=== PATIENT | male | born 1970 ===

== ENCOUNTER 2019-12-02 07:18 | Inpatient (IN) | payer BC, OTHER ==
[~2019-12-02] VITALS: Ht 177 cm; Wt 95.8 kg
[2019-12-02] VITALS (20 sets, daily range): BP systolic 92–139; BP diastolic 50–89
[2019-12-02] MEDS ORDERED: LACTATED RINGERS 1,000 ML IV ONE ×2 (07:44)
[2019-12-02] MEDS ORDERED: NS IV 1000 ML 1,000 ML IV ONE (07:44)
[2019-12-02] MEDS ORDERED: ONDANSETRON 4 MG/2 ML (SDV) Z0FRAN ONE (07:44)
[2019-12-02] MEDS ORDERED: PIPERACILLIN SODIUM/TAZOBACTAM 4.5 GM in NS (IVPB) 100 ML IV ONE (07:45)
[2019-12-02] MEDS ORDERED: VANCOMYCIN INJECTION 1,750 MG in NS IV 500 ML 500 ML IV ONE (07:45)
--- NOTE | 2019-12-02 07:49 | ED General ---
General Stated Complaint: VOMITING Source of Information: Patient Exam Limitations: Language Barrier History of Present Illness Date Seen by Provider: Dec 02, 2019 Time Seen by Provider: 07:25 Initial Comments The patient presents to ER with family by private conveyance with chief complaint for the past 2 weeks she's been having some on again off again nausea vomiting in the past 3 days she's had increasing shortness of breath. He denies any medical history or having a doctor for this. He does not have diabetes. He denies a cough or chest pain. He denies any fever this entire time and has checked it several times. He speaks Arabic primarily and we used the language line to aid communication. He has not taken any medications for his symptoms. He does not routinely take medications nor does he have medical allergies. He denies smoking drinking or recreational drugs. He denies any history of abdominal surgeries or trauma. He denies any travel outside the [facility] in the past 4 weeks. He is not having any diarrhea or constipation. He denies dysuria or discharge. He denies any pain, numbness or t ingling. Allergies and Home Medications Allergies Coded Allergies: No Known Drug Allergies (Unverified , 12/02/19) Patient Home Medication List Home Medication List Reviewed: Yes Review of Systems Review of Systems Constitutional: No chills, No fever; malaise, weakness EENTM: No ear discharge, No ear pain Respiratory: No cough; short of breath Cardiovascular: No chest pain, No Hx of Intervention, No palpitations Gastrointestinal: see HPI; No abdominal pain, No constipation, No diarrhea; loss of appetite, nausea, vomiting Genitourinary: No discharge, No dysuria Musculoskeletal: No back pain, No joint pain All Other Systems Reviewed Negative Unless Noted: Yes Past Cvjjckt-Ghvpua-Vkuwwg Hx Patient Social History Alcohol Use: Denies Use Recreational Drug Use: No Smoking Status: Never a Smoker Recent Foreign Travel: No Contact w/Someone Who Travel: No Physical Exam-Suspected Sepsis Physical Exam Vital Signs Vital Signs - First Documented 12/02/19 12/02/19 12/02/19 07:23 09:00 11:00 Temp 36.5 Pulse 147 Resp 32 B/P (MAP) 144/85 (104) Pulse Ox 100 O2 Delivery Room Air O2 Flow Rate 35.00 FiO2 40 Capillary Refill : Height, Weight, BMI Height: '" Weight: lbs. oz. kg; BMI Method: General Appearance: WD/WN, Moderate Distress Eyes: Bilateral Eye Normal Inspection, Bilateral Eye PERRL, Bilateral Eye EOMI HEENT: PERRL/EOMI, TMs Normal, Normal ENT Inspection; No Moist Mucous Membranes Neck: Full Range of Motion, Normal Inspection, Non Tender, Supple Respiratory: Lungs Clear, Normal Breath Sounds, Accessory Muscle Use, Respiratory Distress (Kussmaul) Cardiovascular: Regular Rate, Rhythm, No Edema, No JVD, Normal Peripheral Pulses, Tachycardia Gastrointestinal: Normal Bowel Sounds, Non Tender, Soft, Other (negative for psoas sign, Rovsing sign, McBurney's point tenderness, Sun's sign, rebound tenderness or other mesenteric signs) Extremity: Normal Capillary Refill, Normal Inspection, No Pedal Edema Neurologic/Psychiatric: Alert, Oriented x3, No Motor/Sensory Deficits, Other (GCS 14) Skin: normal color, warm/dry Focused Exam Sepsis Stage: Ruled Out Reason for ruling out sepsis: diabetic ketoacidosis without source of infection Lactate Level 12/02/19 07:35: Lactic Acid Level 2.82*H 12/02/19 11:20: Lactic Acid Level 1.13 Lactic Acid Level Procedures/Interventions Reason for Intubation: respiratory distress secondary to metabolic acidosis Date of ETT Placement: Dec 02, 2019 Time of ETT Placement: 08:24 Intubation Method: orotracheal Tube Size: 8.0 Medications: Etomidate (20mg), Propofol (20 ml), Rocuronium (50mg) Positive End Tide CO2: Yes Breath Sounds after Intubation: bilateral-equal Intubation Complications: no complications Post Intubation Xray: Yes satisfactory ET tube position Patient was intubated because of respiratory distress and he was having excessive accessory muscle use and wearing out secondary to his metabolic acidosis. We explained this using the language line and the patient consented. We gave etomidate, and rocuronium initially. After intubation we gave him some Versed and then put him on propofol for sedation. Once we had adequate anesthesia, analgesia, paralysis we use an 8.0 ET tube placed on first attempt using video laryngoscopy at 23 at the teeth. It was secured in place. We had good fogging of the tube as well as color change of the colorimetric capnography paper. Patient's oxygen sats never got below 96%. We had good rise and fall of the chest and equal bilateral breath sounds. No gurgling was heard over the epigastric region. Immediately after intubation and securing of the ET tube we placed an OG tube and got withdrawal of about 150 cc of gastric contents, thin. Ventilator was initiated at 20 respirations per minute and 500 cc tidal volume with PEEP 5 and FiO2 of 40%. Because of patient's heart rate had gone up from 1:30 to 160, tears were noted and his blood pressure elevated we gave him Versed and started propofol for analgesia. Vital signs improved and he seemed to have better symptomatic control. Progress/Results/Core Measures Suspected Sepsis SIRS Temperature: Pulse: Respiratory Rate: Laboratory Tests 12/02/19 07:35: White Blood Count 22.7H 12/02/19 11:20: White Blood Count 31.0*H Blood Pressure / Mean: 12/02/19 07:35: Lactic Acid Level 2.82*H 12/02/19 11:20: Lactic Acid Level 1.13 Laboratory Tests 12/02/19 07:35: Creatinine 2.38H, INR Comment 1.3, Platelet Count 441H, Total Bilirubin 0.5 12/02/19 11:20: Platelet Count 310 12/02/19 13:05: Creatinine 2.03H 12/02/19 15:17: Creatinine 1.94H Results/Orders Lab Results Laboratory Tests Test 12/02/19 07:35 12/02/19 08:39 12/02/19 10:03 12/02/19 11:20 Range/Units White Blood Count 22.7 H 31.0 *H 4.3-11.0 10^3/uL Red Blood Count 5.85 4.89 4.35-5.85 10^6/uL Hemoglobin 16.1 13.5 13.3-17.7 G/DL Hematocrit 48 41 40-54 % Mean Corpuscular Volume 82 83 80-99 FL Mean Corpuscular Hemoglobin 28 28 25-34 PG Mean Corpuscular Hemoglobin Concent 34 33 32-36 G/DL Red Cell Distribution Width 14.0 14.0 10.0-14.5 % Platelet Count 441 H 310 130-400 10^3/uL Mean Platelet Volume 12.0 H 12.0 H 7.4-10.4 FL Neutrophils (%) (Auto) 87 H 42-75 % Lymphocytes (%) (Auto) 6 L 12-44 % Monocytes (%) (Auto) 8 0-12 % Eosinophils (%) (Auto) 0 0-10 % Basophils (%) (Auto) 0 0-10 % Neutrophils # (Auto) 19.6 H 1.8-7.8 X 10^3 Lymphocytes # (Auto) 1.3 1.0-4.0 X 10^3 Monocytes # (Auto) 1.7 H 0.0-1.0 X 10^3 Eosinophils # (Auto) 0.0 0.0-0.3 10^3/uL Basophils # (Auto) 0.0 0.0-0.1 10^3/uL Neutrophils % (Manual) 77 % Lymphocytes % (Manual) 5 % Monocytes % (Manual) 7 % Eosinophils % (Manual) 0 % Basophils % (Manual) 0 % Band Neutrophils 11 % Blood Morphology Comment NORMAL Prothrombin Time 16.2 H 12.2-14.7 SEC INR Comment 1.3 0.8-1.4 Activated Partial Thromboplast Time 26 24-35 SEC Blood Gas Puncture Site RR Blood Gas Patient Temperature 36.6 Arterial Blood pH 6.97 *L 7.37-7.43 Arterial Blood Partial Pressure CO2 10 *L 35-45 MMHG Arterial Blood Partial Pressure O2 122 H 79-93 MMHG Arterial Blood HCO3 2 *L 23-27 MMOL/L Arterial Blood Total CO2 2.4 L 21.0-31.0 MMOL/L Arterial Blood Oxygen Saturation 98 94-100 % Arterial Blood Base Excess -27.8 L -2.5-2.5 MMOL/L Scotty Test YES-POS Blood Gas Ventilator Setting NO Blood Gas Inspired Oxygen RA Sodium Level 141 135-145 MMOL/L Potassium Level 4.1 3.6-5.0 MMOL/L Chloride Level 108 H 98-107 MMOL/L Carbon Dioxide Level < 5 *L 21-32 MMOL/L Anion Gap 28 H 5-14 MMOL/L Blood Urea Nitrogen 33 H 7-18 MG/DL Creatinine 2.38 H 0.60-1.30 MG/DL Estimat Glomerular Filtration Rate 29 BUN/Creatinine Ratio 14 Glucose Level 723 *H 70-105 MG/DL Lactic Acid Level 2.82 *H 1.13 0.50-2.00 MMOL/L Calcium Level 9.5 8.5-10.1 MG/DL Corrected Calcium 8.5-10.1 MG/DL Total Bilirubin 0.5 0.1-1.0 MG/DL Aspartate Amino Transf (AST/SGOT) 10 5-34 U/L Alanine Aminotransferase (ALT/SGPT) 32 0-55 U/L Alkaline Phosphatase 140 H 40-136 U/L Ammonia 57 H 11-32 UMOL/L Total Protein 8.8 H 6.4-8.2 GM/DL Albumin 4.9 H 3.2-4.5 GM/DL Serum Alcohol < 10 <10 MG/DL Urine Color YELLOW Urine Clarity CLEAR Urine pH 5.5 5-9 Urine Specific Hye >=1.030 1.016-1.022 Urine Protein 2+ H NEGATIVE Urine Glucose (UA) 3+ H NEGATIVE Urine Ketones 3+ H NEGATIVE Urine Nitrite NEGATIVE NEGATIVE Urine Bilirubin NEGATIVE NEGATIVE Urine Urobilinogen 0.2 < = 1.0 MG/DL Urine Leukocyte Esterase NEGATIVE NEGATIVE Urine RBC (Auto) 2+ H NEGATIVE Urine RBC 0-2 /HPF Urine WBC RARE /HPF Urine Squamous Epithelial Cells RARE /HPF Urine Crystals PRESENT H /LPF Urine Amorphous Sediment RARE LAUREN URATES H /LPF Urine Bacteria NEGATIVE /HPF Urine Casts PRESENT /LPF Urine Hyaline Casts RARE /LPF Urine Mucus NEGATIVE /LPF Urine Culture Indicated CULTURE PENDING Urine Opiates Screen NEGATIVE NEGATIVE Urine Oxycodone Screen NEGATIVE NEGATIVE Urine Methadone Screen NEGATIVE NEGATIVE Urine Propoxyphene Screen NEGATIVE NEGATIVE Urine Barbiturates Screen NEGATIVE NEGATIVE Ur Tricyclic Antidepressants Screen NEGATIVE NEGATIVE Urine Phencyclidine Screen NEGATIVE NEGATIVE Urine Amphetamines Screen NEGATIVE NEGATIVE Urine Methamphetamines Screen NEGATIVE NEGATIVE Urine Benzodiazepines Screen NEGATIVE NEGATIVE Urine Cocaine Screen NEGATIVE NEGATIVE Urine Cannabinoids Screen NEGATIVE NEGATIVE Glucometer 549 *H 70-110 MG/DL Triglycerides Level 282 H <150 MG/DL Beta-Hydroxybutyrate (Chem panel) 11.18 H 0.00-0.27 MMOL/L Test 12/02/19 11:57 12/02/19 12:16 12/02/19 13:03 12/02/19 13:05 Range/Units Glucometer 469 *H 488 *H 70-110 MG/DL Blood Gas Puncture Site LR Blood Gas Patient Temperature 96.3 Arterial Blood pH 6.99 *L 7.37-7.43 Arterial Blood Partial Pressure CO2 24 L 35-45 MMHG Arterial Blood Partial Pressure O2 52 L 79-93 MMHG Arterial Blood HCO3 6 *L 23-27 MMOL/L Arterial Blood Total CO2 6.4 L 21.0-31.0 MMOL/L Arterial Blood Oxygen Saturation 86 L 94-100 % Arterial Blood Base Excess -23.6 L -2.5-2.5 MMOL/L Scotty Test YES-POS Blood Gas Ventilator Setting YES Blood Gas Inspired Oxygen 35% Sodium Level 141 135-145 MMOL/L Potassium Level 5.0 3.6-5.0 MMOL/L Chloride Level 115 H 98-107 MMOL/L Carbon Dioxide Level < 5 *L 21-32 MMOL/L Anion Gap 21 H 5-14 MMOL/L Blood Urea Nitrogen 36 H 7-18 MG/DL Creatinine 2.03 H 0.60-1.30 MG/DL Estimat Glomerular Filtration Rate 35 BUN/Creatinine Ratio 18 Glucose Level 553 *H 70-105 MG/DL Calcium Level 8.0 L 8.5-10.1 MG/DL Test 12/02/19 13:45 12/02/19 14:05 12/02/19 14:56 12/02/19 15:17 Range/Units Blood Gas Puncture Site RR Blood Gas Patient Temperature 36.4 Arterial Blood pH 7.01 *L 7.37-7.43 Arterial Blood Partial Pressure CO2 22 L 35-45 MMHG Arterial Blood Partial Pressure O2 64 L 79-93 MMHG Arterial Blood HCO3 5 *L 23-27 MMOL/L Arterial Blood Total CO2 6.0 L 21.0-31.0 MMOL/L Arterial Blood Oxygen Saturation 89 L 94-100 % Arterial Blood Base Excess -23.7 L -2.5-2.5 MMOL/L Scotty Test YES-POS Blood Gas Ventilator Setting YES Blood Gas Inspired Oxygen 35% Glucometer 434 *H 361 H 70-110 MG/DL Sodium Level 141 135-145 MMOL/L Potassium Level 4.8 3.6-5.0 MMOL/L Chloride Level 118 H 98-107 MMOL/L Carbon Dioxide Level 5 *L 21-32 MMOL/L Anion Gap 18 H 5-14 MMOL/L Blood Urea Nitrogen 37 H 7-18 MG/DL Creatinine 1.94 H 0.60-1.30 MG/DL Estimat Glomerular Filtration Rate 37 BUN/Creatinine Ratio 19 Glucose Level 442 *H 70-105 MG/DL Calcium Level 7.7 L 8.5-10.1 MG/DL Test 12/02/19 15:57 12/02/19 16:58 12/02/19 18:20 Range/Units Glucometer 363 H 317 H 70-110 MG/DL Micro Results Microbiology 12/02/19 Influenza Types A,B Antigen (JOAQUIN) - Final, Complete My Orders Orders - KRYSTLE WEEKS Cbc With Automated Diff (12/02/19 07:44) Comprehensive Metabolic Panel (12/02/19 07:44) Blood Culture (12/02/19 07:44) Sputum Culture (12/02/19 07:44) Urinalysis (12/02/19 07:44) Urine Culture (12/02/19 07:44) Protime With Inr (12/02/19 07:44) Partial Thromboplastin Time (12/02/19 07:44) Chest 1 View, Ap/Pa Only (12/02/19 07:44) Ed Iv/Invasive Line Start (12/02/19 07:44) Ed Iv/Invasive Line Start (12/02/19 07:44) Vital Signs Adult Sepsis Patie Q15M (12/02/19 07:44) O2 (12/02/19 07:44) Remove Rings In Anticipation O (12/02/19 07:44) Lactic Acid Analyzer (12/02/19 07:44) Influenza A And B Antigens (12/02/19 07:44) Lactated Ringers (Lr 1000 Ml Iv Solution (12/02/19 07:44) Piperacillin Sodium/Tazobactam (Zosyn Vi (12/02/19 07:45) Vancomycin Injection (Vancomycin Injecti (12/02/19 07:45) Ed Iv/Invasive Line Start (12/02/19 07:44) Ns Iv 1000 Ml (Sodium Chloride 0.9%) (12/02/19 07:44) Lactated Ringers (Lr 1000 Ml Iv Solution (12/02/19 07:44) Arterial Blood Gas (12/02/19 07:44) Ondansetron Injection (Zofran Injectio (12/02/19 08:00) Drug Screen Stat (Urine) (12/02/19 07:49) Alcohol (12/02/19 07:49) Ammonia (12/02/19 07:49) Ondansetron Injection (Zofran Injectio (12/02/19 07:44) Manual Differential (12/02/19 07:35) Iohexol Injection (Omnipaque 350 Mg/Ml 1 (12/02/19 08:00) Received Contrast (Hold Metformin- Contr (12/02/19 08:00) Ns (Ivpb) (Sodium Chloride 0.9% Ivpb Bag (12/02/19 08:00) Sodium Bicarbonate 8.4% Vial (Sodium Bic (12/02/19 08:15) Propofol Drip (Icu) (Diprivan Drip (Icu) (12/02/19 08:28) Insulin (Regular) Human (Humulin R (Per (12/02/19 09:00) 1/2 Ns W/Kcl 20 Meq/L (0.45% Sodium Chlo (12/02/19 09:00) Fentanyl Injection (Sublimaze Injection (12/02/19 09:15) Fentanyl Injection (Sublimaze Injection (12/02/19 09:01) Medications Given in ED Current Medications Medications Dose Ordered Sig/Roberth Route Start Time Stop Time Status Last Admin Dose Admin Insulin Human Regular 10 unit ONCE ONCE IV 12/02/19 09:00 12/02/19 09:01 DC 12/02/19 09:16 10 UNIT Lactated Ringer's 1,000 ml @ 0 mls/hr Q0M ONCE IV 12/02/19 07:44 12/02/19 07:47 DC 12/02/19 07:53 1,000 MLS/HR Lactated Ringer's 1,000 ml @ 0 mls/hr Q0M ONCE IV 12/02/19 07:44 12/02/19 07:47 DC 12/02/19 08:13 1,000 MLS/HR Ondansetron HCl 4 mg ONCE ONCE IVP 12/02/19 08:00 12/02/19 08:01 DC 12/02/19 07:52 4 MG Propofol 100 ml @ ud STK-MED ONCE IV 12/02/19 08:28 12/02/19 08:34 DC 12/02/19 08:49 20 MLS/HR Sodium Bicarbonate 50 meq ONCE ONCE IV 12/02/19 08:15 12/02/19 08:16 DC 12/02/19 08:50 50 MEQ Sodium Chloride 1,000 ml @ 0 mls/hr Q0M ONCE IV 12/02/19 07:44 12/02/19 07:47 DC 12/02/19 08:50 1,000 MLS/HR Vital Signs/I&O 12/02/19 12/02/19 12/02/19 12/02/19 07:23 08:49 09:00 09:30 Temp 36.5 36.4 Pulse 147 146 147 124 Resp 32 16 B/P (MAP) 144/85 (104) 124/65 115/58 Pulse Ox 100 96 100 O2 Delivery Room Air Mechanical Ventilator FiO2 40 12/02/19 12/02/19 12/02/19 12/02/19 09:40 09:51 10:06 11:00 Temp 36.1 Pulse 125 125 125 Resp 37 18 17 B/P (MAP) 139/81 (100) 113/76 (88) Pulse Ox 98 99 99 99 O2 Delivery Mechanical Ventilator Mechanical Ventilator Mechanical Ventilator O2 Flow Rate 35.00 FiO2 35 40 12/02/19 12/02/19 12/02/19 12/02/19 11:05 11:13 11:13 12:00 Pulse 126 126 126 101 Resp 16 B/P (MAP) 113/76 113/76 108/56 (73) Pulse Ox 99 O2 Delivery Mechanical Ventilator O2 Flow Rate 35.00 12/02/19 12/02/19 12/02/19 12/02/19 12:00 12:30 12:41 13:00 Temp 36.5 Pulse 96 95 Resp 15 B/P (MAP) 92/50 (64) Pulse Ox 99 99 O2 Delivery Mechanical Ventilator Mechanical Ventilator O2 Flow Rate 35.00 FiO2 35 12/02/19 12/02/19 12/02/19 12/02/19 14:00 14:33 15:41 16:08 Pulse 92 89 89 89 Resp 17 33 33 B/P (MAP) 110/70 (83) 118/83 Pulse Ox 100 99 99 O2 Delivery Mechanical Ventilator O2 Flow Rate 35.00 FiO2 35 35 12/02/19 12/02/19 16:10 16:19 Temp 36.4 Pulse Ox 99 O2 Delivery Mechanical Ventilator FiO2 35 Capillary Refill : Progress Note #1: Time: 08:01 Progress Note Rapid breathing likely due to acidosis from? Since he's having vomiting we'll look in the get a CT labs urinalysis, septic workup 3 L which is greater than 30 mL/kg and since his mentation is poor but he has a soft, supple, non-stiff neck but is oriented we'll consider intracranial pathology and get a CT of his head. Zosyn and vancomycin. Zofran for his nausea. ABG. Progress Note #2: Time: 08:55 Progress Note While the patient did not know he had some diabetes his blood sugar 700 would indicate that he is likely in ketoacidosis. We have initiated a 3 L fluid bolus to start and bicarbonate. We have intubated to protect his airway and keep him from having complete respiratory failure. His potassium is 4.1 spray give him fluids to run with potassium after the boluses and initiate him with 10 units of regular insulin and then send him to the ICU on an insulin drip. We have discontinued the imaging studies as they are unlikely to demonstrate any pa thology since the patient had a benign abdominal exam. Occam's razor. Antibiotics were also discontinued as the patient never had fever or other symptoms of infection not explained by DKA. Diagnostic Imaging Diagonstic Imaging: Xray Plain Films/CT/US/NM/MRI: chest (1v) Comments No acute pulmonary changes. Good placement of ET tube about 2-3 cm above the shane. Good aeration of both lungs. No pneumothorax. OG tube coiled in the top of the stomach times one loop. Reviewed: Reviewed by Me Departure Communication (Admissions) Time/Spoke to Admitting Phy: 09:00 Discussed the case with Dr. Reed and she agrees to take the patient to the ICU on the ventilator, insulin drip. Impression Primary Impression: Diabetic ketoacidosis Qualified Codes: E13.10 - Other specified diabetes mellitus with ketoacidosis without coma Additional Impressions: Acute respiratory failure Qualified Codes: J96.00 - Acute respiratory failure, unspecified whether with hypoxia or hypercapnia Acute renal injury due to hypovolemia Disposition: ADMITTED INPATIENT Condition: Critical Admissions Decision to Admit Reason: Admit from ER (General) Decision to Admit/Date: Dec 02, 2019 Time/Decision to Admit Time: 09:00 KRYSTLE WEEKS Dec 02, 2019 07:48
[2019-12-02 07:53] LABS: BASOPHILS % (AUTO) 0 % (0-10); EOSINOPHILS % (AUTO) 0 % (0-10); HEMATOCRIT 48 % (40-54); HEMOGLOBIN 16.1 G/DL (13.3-17.7); LYMPHOCYTES # (AUTO) 1.3 X 10^3 (1.0-4.0); LYMPHOCYTES % (AUTO) 6 % (12-44); MEAN CORPUSCULAR HEMOGLOBIN 28 PG (25-34); MEAN CORPUSCULAR HGB CONC 34 G/DL (32-36); MEAN CORPUSCULAR VOLUME 82 FL (80-99); MONOCYTES # (AUTO) 1.7 X 10^3 (0.0-1.0); MONOCYTES % (AUTO) 8 % (0-12); NEUTROPHILS # (AUTO) 19.6 X 10^3 (1.8-7.8); NEUTROPHILS % (AUTO) 87 % (42-75); PLATELET COUNT 441 10^3/uL (130-400); WHITE BLOOD COUNT 22.7 10^3/uL (4.3-11.0)
[2019-12-02 07:55] LABS: ABG BASE EXCESS -27.8 MMOL/L (-2.5-2.5); ABG OXYGEN SATURATION 98 % (94-100); ABG PO2 122 MMHG (79-93); ABG TCO2 2.4 MMOL/L (21.0-31.0)
[2019-12-02 07:56] LABS: ALLENS TEST YES-POS; INSPIRED O2 RA; VENTILATOR NO
[2019-12-02 07:57] LABS: ABG PCO2 10 MMHG (35-45); ABG PH 6.97 (7.37-7.43); PATIENT TEMP 36.6
[2019-12-02] MEDS ORDERED: IOHEXOL 350 MG/ML 100 ML (OMNIPAQUE 350) VIAL IV ONE (08:00)
[2019-12-02] MEDS ORDERED: NS 100 ML (IVPB) BAG IV ONE (08:00)
[2019-12-02] MEDS ORDERED: HOLD METFORMIN - RECEIVED CONTRAST 20 ML VIAL IV SCH (08:00)
[2019-12-02] MEDS ORDERED: ONDANSETRON 4 MG/2 ML (SDV) Z0FRAN IVP ONE (08:00)
[2019-12-02 08:03] LABS: INR 1.3 (0.8-1.4); PROTHROMBIN TIME PATIENT 16.2 SEC (12.2-14.7)
[2019-12-02] MEDS ORDERED: SODIUM BICARB 8.4% 50 MEQ/50 ML VIAL IV ONE (08:15)
[2019-12-02] MEDS ORDERED: PROPOFOL DRIP (ICU) 100 ML IV ONE ×2 (08:28→10:20)
[2019-12-02 08:34] LABS: BAND NEUTROPHILS 11 %; BASOPHILS % (MANUAL) 0 %; EOSINOPHILS % (MANUAL) 0 %; LYMPHOCYTES % (MANUAL) 5 %; MONOCYTES % (MANUAL) 7 %; NEUTROPHILS % (MANUAL) 77 %; RBC MORPH NORMAL
[2019-12-02 08:37] LABS: ALANINE AMINOTRANSFERASE 32 U/L (0-55); ALBUMIN 4.9 GM/DL (3.2-4.5); ALKALINE PHOSPHATASE 140 U/L (40-136); AMMONIA 57 UMOL/L (11-32); BILIRUBIN,TOTAL 0.5 MG/DL (0.1-1.0); BUN/CREATININE RATIO 14; CALCIUM 9.5 MG/DL (8.5-10.1); CHLORIDE 108 MMOL/L (98-107); CREATININE SERUM 2.38 MG/DL (0.60-1.30); GFR ESTIMATED 29; POTASSIUM 4.1 MMOL/L (3.6-5.0); SODIUM 141 MMOL/L (135-145); TOTAL PROTEIN 8.8 GM/DL (6.4-8.2)
--- NOTE | 2019-12-02 08:45 | NUR ---
0818 language line called Vanesa; RT Lester and RT Krissy present Vitals: 130P, 31R, 100% O2 RA, 147/82 BP 0824 pt bagged by Krissy, Etomidate 20 mg administered by Amena Otoole 0825 Heriberto 50 mg administered by Amena Otoole, pt bagged 100% O2 0826 Krissy, attempt to intubate, 100% O2, 163P 0828 size 8 tube placed 23 cm at teeth, pt bagged, + color change, 100% O2, 165P 0831 16 fr OG placed by Dr. Alexis 0832 5mg versed administered by this nurse
[2019-12-02 08:46] LABS: CARBON DIOXIDE < 5 MMOL/L (21-32); GLUCOSE 723 MG/DL (70-105)
[2019-12-02 08:51] LABS: BILIRUBIN,URINE NEGATIVE (NEGATIVE); CLARITY,URINE CLEAR; COLOR,URINE YELLOW; GLUCOSE, URINE (UA) 3+ (NEGATIVE); KETONES,URINE 3+ (NEGATIVE); LEUKOCYTE ESTERASE ,URINE NEGATIVE (NEGATIVE); NITRITE,URINE NEGATIVE (NEGATIVE); PH,URINE 5.5 (5-9); PROTEIN,URINE 2+ (NEGATIVE)
[2019-12-02 08:58] LABS: RBC,URINE 0-2 /HPF
[2019-12-02 08:59] LABS: AMORPHOUS SEDIMENT,UR RARE AMOR URATES /LPF; BACTERIA,URINE NEGATIVE /HPF; HYALINE CASTS, URINE RARE /LPF; SQUAMOUS EPITHELIAL CELL,UR RARE /HPF; WBC,URINE RARE /HPF
[2019-12-02] MEDS ORDERED: inSUlin (REGULAR) HUMAN 1 UNIT/0.01 ML (CHARGE PER UNIT) IV ONE (09:00)
[2019-12-02] MEDS ORDERED: 1/2 NS W/KCL 20 MEQ/L 1,000 ML IV SCH (09:00)
[2019-12-02] MEDS ORDERED: fentaNYL INJECTION 100 MCG/2 ML AMP ONE (09:01)
[2019-12-02 09:04] LABS: AMPHETAMINE SCREEN, URINE NEGATIVE (NEGATIVE); BARBITURATE SCREEN URINE NEGATIVE (NEGATIVE); BENZODIAZEPINES SCREEN URINE NEGATIVE (NEGATIVE); CANNABINOID SCREEN, URINE NEGATIVE (NEGATIVE); COCAINE SCREEN URINE NEGATIVE (NEGATIVE); METHADONE STAT NEGATIVE (NEGATIVE); METHAMPHETAMINE SCREEN URINE S NEGATIVE (NEGATIVE); OPIATE SCREEN URINE NEGATIVE (NEGATIVE); OXYCODONE STAT NEGATIVE (NEGATIVE); PROPOXYPHENE STAT NEGATIVE (NEGATIVE); TRICYCLIC ANTIDEPRESSANTS SCRE NEGATIVE (NEGATIVE)
--- NOTE | 2019-12-02 09:04 | Diagnostic Imaging Report ---
EXAMINATION: Single frontal view of the chest INDICATION: Intubation. COMPARISON: None available. FINDINGS: Endotracheal tube is in place, with distal tip approximately 2.4 cm above the shane. Enteric tube is in place, well positioned in the stomach with distal tip and side-port in the gastric fundus. The lungs are clear and the pulmonary vasculature is normal. No pneumothorax or large pleural effusion. Heart size and mediastinal contours are normal. No acute osseous abnormality is identified. IMPRESSION: Endotracheal and enteric tubes are in place. No radiographic evidence of an acute cardiopulmonary process. Dictated by: Dictated on workstation # [id number]
[2019-12-02] MEDS ORDERED: fentaNYL INJECTION 100 MCG/2 ML AMP IVP ONE (09:15)
--- NOTE | 2019-12-02 09:26 | NUR ---
nurse to call when available for report
--- OUTSIDE RECORDS SUMMARY | 2019-12-02 09:36 | XMS REPORT | Continuity of Care Document ---
Demographics Preferred Language Unknown Marital Status Unknown L[employer] Affiliation Unknown Race Unknown Ethnic Group Unknown Author Organization Unknown Address Unknown Phone Unavailable Allergies There is no data. Medications There is no data. Problems There is no data. Procedures There is no data. Results Test Result Range Complete blood count (CBC) with automate d white blood cell (WBC) differential - 12/02/19 07:35 Blood leukocytes automated count (number/volume) 22.7 10*3/uL 4.3-11.0 Blood erythrocytes automated count (number/volume) 5.85 10*6/uL 4.35-5.85 Venous blood hemoglobin measurement (mass/volume) 16.1 g/dL 13.3-17.7 Blood hematocrit (volume fraction) 48 % 40-54 Automated erythrocyte mean corpuscular volume 82 [ foz_us] 80-99 Automated erythrocyte mean corpuscular h emoglobin (mass per erythrocyte) 28 pg 25-34 Automated erythrocyte mean corpuscular h emoglobin concentration measurement (mass/volume) 34 g/dL 32-36 Automated erythrocyte distribution width ratio 14. 0 % 10.0- 14.5 Automated blood platelet count (count/volume) 441 10*3/uL 130-400 Automated blood platelet mean volume measurement 12.0 [foz_us] 7.4-10.4 Automated blood neutrophils/100 leukocytes 87 % 42-75 Automated blood lymphocytes/100 leukocytes 6 % 12-44 Blood monocytes/100 leukocytes 8 % 0-12 Automated blood eosinophils/100 leukocytes 0 % 0-10 Automated blood basophils/100 leukocytes 0 % 0-10 Blood neutrophils automated count (number/volume) 19.6 10*3 1.8-7.8 Blood lymphocytes automated count (number/volume) 1.3 10*3 1.0-4.0 Blood monocytes automated count (number/volume) 1. 7 10*3 0.0-1.0 Automated eosinophil count 0.0 10*3/uL 0 .0-0.3 Automated blood basophil count (count/volume) 0.0 10*3/uL 0.0-0.1 Arterial blood gas measurement - 0 07:35 Blood pCO2 10 mm[Hg] 35-45 Blood pO2 122 mm[Hg] 79-93 Arterial blood bicarbonate measurement (moles/volume) 2 mmol/L 23-27 Arterial blood base excess by calculation -27.8 mm ol/L -2.5-2.5 Arterial blood oxygen saturation measurement 98 % 94-100 * Inhaled oxygen flow rate RA NRG Arterial blood pH measurement with patient temperature correction 6.97 7.37-7.43 Arterial blood carbon dioxide, total measurement (mole s/volume) 2.4 mmol/L 21.0-31.0 Body site RR NRG Assessment of wrist artery patency prior to arterial p uncture YES-POS NRG Setting of ventilation mode NO NR G Measurement of body temperature 36.6 NRG PT panel in platelet poor plasma by coag ulation assay - 12/02/19 07:35 Prothrombin time (PT) in platelet poor plasma by coagu lation assay 16.2 s 12.2-14.7 INR in platelet poor plasma or blood by coagulation as say 1.3 0.8-1.4 Activated partial thromboplastin time (a PTT) in platelet poor plasma bycoagulation assay - 12/02/19 07:35 Activated partial thromboplastin time (a PTT) in platelet poor plasma bycoagulation assay 26 s 24-35 Manual absolute plasma cell count - 11/08 01/26 07:35 Blood monocytes/100 leukocytes 7 % NRG Manual blood segmented neutrophils/100 leukocytes 77 % NRG Blood band neutrophils/100 leukocytes 11 % NRG Manual blood lymphocytes/100 leukocytes 5 % NRG Manual eosinophils/100 leukocytes in nose 0 % NRG Manual blood basophils/100 leukocytes 0 % NRG Blood erythrocyte morphology finding identification NORMAL NRG Comprehensive metabolic panel - 12/02/19 07:35 Serum or plasma sodium measurement (moles/volume) 141 mmol/L 135-145 Serum or plasma potassium measurement (moles/volume) 4.1 mmol/L 3.6-5.0 Serum or plasma chloride measurement (moles/volume) 108 mmol/L 98-107 Carbon dioxide < mmol/L 21-32 Serum or plasma anion gap determination (moles/volume) 28 mmol/L 5-14 Serum or plasma urea nitrogen measurement (mass/volume ) 33 mg/dL 7-18 Serum or plasma creatinine measurement (mass/volume) 2.38 mg/dL 0.60-1.30 Serum or plasma urea nitrogen/creatinine mass ratio 14 NRG Serum or plasma creatinine measurement w ith calculation of estimated glomerular filtration rate 29 NRG Serum or plasma glucose measurement (mass/volume) 723 mg/dL 70-105 Serum or plasma calcium measurement (mass/volume) 9.5 mg/dL 8.5-10.1 Serum or plasma total bilirubin measurement (mass/volu me) 0.5 mg/dL 0.1-1.0 Serum or plasma alkaline phosphatase mariangel surement (enzymatic activity/volume) 140 U/L 40-136 Serum or plasma aspartate aminotransfera se measurement (enzymatic activity/volume) 10 U/L 5-34 Serum or plasma alanine aminotransferase measurement (enzymatic activity/volume) 32 U/L 0-55 Serum or plasma protein measurement (mass/volume) 8.8 g/dL 6.4-8.2 Serum or plasma albumin measurement (mass/volume) 4.9 g/dL 3.2-4.5 Ammonia - 12/02/19 07:35 Ammonia 57 umol/L 11-32 Blood lactic acid measurement (moles/vol ume) - 12/02/19 07:35 Blood lactic acid measurement (moles/volume) 2.82 mmol/L 0.50-2.00 Serum or plasma ethanol measurement (mas s/volume) - 12/02/19 07:35 Serum or plasma ethanol measurement (mass/volume) < mg/dL <10 Influenza virus A and B antigen detectio n - 12/02/19 08:03 FLU RESULT NEGATIVE FOR INFLUENZA A AND B ANTIGENS BY IA NRG Complete urinalysis with reflex to cultu re - 12/02/19 08:39 Urine color determination YELLOW NRG Urine clarity determination CLEAR NR G Urine pH measurement by test strip 5.5 5-9 Specific gravity of urine by test strip >= 1.016-1.022 Urine protein assay by test strip, semi-quantitative 2+ NEGATIVE Urine glucose detection by automated test strip 3+ NEGATIVE Erythrocytes detection in urine sediment by light micr oscopy 2+ NEGATIVE Urine ketones detection by automated test strip 3+ NEGATIVE Urine nitrite detection by test strip NEGATIVE NEGATIVE Urine total bilirubin detection by test strip NEGA TIVE NEGATIVE Urine urobilinogen measurement by automated test strip (mass/volume) 0.2 mg/dL < = 1.0 Urine leukocyte esterase detection by dipstick NEG ATIVE NEGATIVE Automated urine sediment erythrocyte cou nt by microscopy (number/high power field) [HPF] NRG Automated urine sediment leukocyte count by microscopy (number/high power field) RARE NRG Bacteria detection in urine sediment by light microsco py NEGATIVE NRG Squamous epithelial cells detection in u rine sediment by light microscopy RARE NRG Crystals detection in urine sediment by light microsco py PRESENT NRG Casts detection in urine sediment by light microscopy PRESENT NRG Mucus detection in urine sediment by light microscopy NEGATIVE NRG Complete urinalysis with reflex to culture CULTURE PENDING NRG Amorphous sediment detection in urine sediment by ligh t microscopy RARE LAUREN URATES NRG Hyaline casts detection in urine sediment by light nima roscopy RARE NRG Urine drug screening test - 12/02/19 08: 39 Urine phencyclidine detection by screening method NEGATIVE NEGATIVE Urine benzodiazepines detection by screening method NEGATIVE NEGATIVE Urine cocaine detection NEGATIVE NEGATI VE Urine amphetamines detection by screening method N EGATIVE NEGATIVE Urine methamphetamine detection by screening method NEGATIVE NEGATIVE Urine cannabinoids detection by screening method N EGATIVE NEGATIVE Urine opiates detection by screening method NEGATI VE NEGATIVE Urine barbiturates detection NEGATIVE N EGATIVE Screening urine tricyclic antidepressants detection NEGATIVE NEGATIVE Urine methadone detection by screening method NEGA TIVE NEGATIVE Urine oxycodone detection NEGATIVE NEGA TIVE Urine propoxyphene detection NEGATIVE N EGATIVE Encounters ACCT No. Visit Date/Time Discharge Status Pt. Type Provider Facility Loc./Unit Complaint [id number] 12/02/2019 07:54:00 Document Registration
[2019-12-02] MEDS ORDERED: NS IV 1000 ML 1,000 ML IV SCH (10:15)
--- NOTE | 2019-12-02 10:35 | History & Physical-Hospitalist ---
History of Present Illness HPI/Chief Complaint Pt is a 49yoHM with no known past medical history who presented to the ER due to vomiting and malaise for 2 weeks. At the time of my exam he was intubated and sedated and unable to provide any history. All history obtained from ER notes. He had been feeling poorly for the past 2 weeks with nausea and vomiting. Over the last few days he became short of breath as well. He has not travelled or had a fever. He does not have any diarrhea, constipation, dysuria, or pain. He was found to be profoundly acidotic with a pH of 6.97 Source: patient Date Seen 12/02/19 Time Seen by a Provider: 10:35 Attending Physician Elisabet Reed MD PCP Unknown Referring Physician Date of Admission Dec 02, 2019 at 09:12 Home Medications & Allergies Home Medications Reviewed patient Home Medication Reconciliation performed by pharmacy medication reconciliations orthotic technician and/or nursing. Patients Allergies have been reviewed. Allergies Allergies Coded Allergies No Known Drug Allergies (Unverified12/02/19) Past Tsmesvl-Xfldwv-[id number] Hx Past Med/Social Hx: Reviewed Nursing Past Med/Soc Hx Patient Social History Marrital Status: Alcohol Use: Denies Use Recreational Drug Use: No Smoking Status: Never a Smoker 2nd Hand Smoke Exposure: No Recent Foreign Travel: No Contact w/other who traveled: No Recent Hopitalizations: No Seasonal Allergies Seasonal Allergies: No Past Medical History History of Blood Disorders: No Family History Reviewed Nursing Family Hx Review of Systems ROS-Unable to Obtain: due to clinical condition Constitutional: see HPI Physical Exam Physical Exam Vital Signs Vital Signs - First Documented 12/02/19 12/02/19 12/02/19 07:23 09:00 11:00 Temp 36.5 Pulse 147 Resp 32 B/P (MAP) 144/85 (104) Pulse Ox 100 O2 Delivery Room Air O2 Flow Rate 35.00 FiO2 40 Capillary Refill : Height, Weight, BMI Height: '" Weight: lbs. oz. kg; BMI Method: General Appearance: Other (intubated and sedated) HEENT: PERRL/EOMI; No Scleral Icterus (L), No Scleral Icterus (R) Neck: Normal Inspection; No Thyromegaly Respiratory: Lungs Clear, Other (on vent, overbreathing) Cardiovascular: Regular Rate, Rhythm, No Murmur Gastrointestinal: Normal Bowel Sounds, Non Tender, Soft Genital/Rectal: Other (hennessy in place) Extremity: Normal Capillary Refill, No Calf Tenderness, No Pedal Edema Neurologic/Psychiatric: Other (sedated, appears comfortable) Skin: Normal Color, Warm/Dry Results Results/Procedures Labs Laboratory Tests 12/02/19 07:35 12/02/19 11:20 12/02/19 13:05 Patient resulted labs reviewed. Imaging: Reviewed Imaging Report Imaging Signed Date of Exam:12/02/19 CHEST 1 VIEW, AP/PA ONLY EXAMINATION: Single frontal view of the chest INDICATION: Intubation. COMPARISON: None available. FINDINGS: Endotracheal tube is in place, with distal tip approximately 2.4 cm above the shane. Enteric tube is in place, well positioned in the stomach with distal tip and side-port in the gastric fundus. The lungs are clear and the pulmonary vasculature is normal. No pneumothorax or large pleural effusion. Heart size and mediastinal contours are normal. No acute osseous abnormality is identified. IMPRESSION: Endotracheal and enteric tubes are in place. No radiographic evidence of an acute cardiopulmonary process. Assessment/Plan Admission Diagnosis DKA Admission Status: Inpatient Order (span 2 midnights) Reason for Inpatient Admission: intubated Assessment and Plan severe DKA new onset diabetes Insulin gtt per protocol fluid resuscitation per protocol a1c ordered Monitor electrolytes acute respiratory failure intubated in ER telehealth consulted for vent management, appreciate assistance propofol for sedated BAYRON Creatine 2.38 Continue fluids no baseline available, hopeful this is all acute from volume depletion DVT ppx: Lovenox Critical Care Critically Ill Patient Diagnosis/Problems Diagnosis/Problems (1) Diabetic ketoacidosis Status: Acute Qualifiers: Diabetes mellitus type: other specified (including MAYKEL) Diabetes mellitus complication detail: without coma Qualified Codes: E13.10 - Other specified diabetes mellitus with ketoacidosis without coma (2) Acute renal injury due to hypovolemia Status: Acute (3) Acute respiratory failure Status: Acute Qualifiers: Respiratory failure complication: unspecified whether with hypoxia or hypercapnia Qualified Codes: J96.00 - Acute respiratory failure, unspecified whether with hypoxia or hypercapnia ELISABET REED MD Dec 02, 2019 10:35
--- NOTE | 2019-12-02 10:44 | Occ Therapy Progress Note ---
Therapy Progress Note Order received for OT eval and treat. Chart review completed. Pt currently intubated and sedated. Will hold therapy at this time. Will continue to monitor and initiate therapy when pt medically stable and able to participate. JOSE GAMING OT Dec 02, 2019 10:44
[2019-12-02] MEDS: 1/2 NS IV SOLUTION 1,000 ML IV SCH ×4 (10:45→23:44)
[2019-12-02] MEDS ORDERED: ETOMIDATE IV SOLN 20 MG/10 ML VIAL IV ONE (10:58)
[2019-12-02] MEDS ORDERED: ROCURONIUM 10 MG/ML 5 ML SYRINGE IV ONE (10:58)
[2019-12-02] MEDS ORDERED: MIDAZOLAM 5 MG/5 ML (VERSED) VIAL IJ ONE (10:58)
[2019-12-02] MEDS: inSUlin REGULAR TPN/DRIP ONLY 250 UNITS in NORMAL SALINE 250 ML IV SCH (11:00)
[2019-12-02] MEDS: DexMEDEtomidine 250 ML DRIP 250 ML IV SCH ×2 (11:13→18:31)
[2019-12-02] MEDS: POTASSIUM CL 10MEQ/50ML IVPB 50 ML IV SCH ×9 (11:15→23:57)
[2019-12-02 11:30] LABS: HEMOGLOBIN 13.5 G/DL (13.3-17.7)
[2019-12-02] MEDS: ENOXAPARIN 40 MG/0.4 ML (LOVENOX) SYR SC SCH (12:13)
[2019-12-02] MEDS: PANTOPRAZOLE 40 MG (PROTONIX) VIAL IV SCH (12:13)
[2019-12-02 12:21] LABS: ABG BASE EXCESS -23.6 MMOL/L (-2.5-2.5); ABG OXYGEN SATURATION 86 % (94-100); ABG PCO2 24 MMHG (35-45); ABG PO2 52 MMHG (79-93); ABG TCO2 6.4 MMOL/L (21.0-31.0)
[2019-12-02 12:27] LABS: ABG PH 6.99 (7.37-7.43); ALLENS TEST YES-POS; INSPIRED O2 35%; PATIENT TEMP 96.3; VENTILATOR YES
[2019-12-02] MEDS ORDERED: NS IV 1000 ML 1,000 ML ONE (13:21)
[2019-12-02 13:30] LABS: BUN/CREATININE RATIO 18; CHLORIDE 115 MMOL/L (98-107); CREATININE SERUM 2.03 MG/DL (0.60-1.30); GFR ESTIMATED 35; SODIUM 141 MMOL/L (135-145)
[2019-12-02 13:34] LABS: CARBON DIOXIDE < 5 MMOL/L (21-32)
[2019-12-02 13:35] LABS: GLUCOSE 553 MG/DL (70-105)
--- NOTE | 2019-12-02 13:36 | NUR ---
DR ECKERT ON FLOOR AND NOTIFIED OF PT'S LOW BP 88/66 VERBAL ORDERS RECEIVED TO GIVE BOLUS OF NS X 1 LITER. BOLUS STARTED BP NOTED NOW AT 102/65
[2019-12-02 14:03] LABS: ABG BASE EXCESS -23.7 MMOL/L (-2.5-2.5); ABG OXYGEN SATURATION 89 % (94-100); ABG PCO2 22 MMHG (35-45); ABG PH 7.01 (7.37-7.43); ABG PO2 64 MMHG (79-93); ALLENS TEST YES-POS; INSPIRED O2 35%
[2019-12-02 14:04] LABS: PATIENT TEMP 36.4
--- NOTE | 2019-12-02 14:07 | NUR ---
"Received dietary consult regarding pt's vent status. Est. kcal needs: 5869-5168 kcal | 20-25 kcal/kg Est. Pro needs: 91-109 g Pro | 1.0-1.2 g Pro/kg If pt is to remain NPO for more than 3days, would recommend the following TF: Glucerna 1.5 at goal rate of 50ml/hr. Begin at 10ml/hr and increase by 10ml q6h as tolerated. At goal rate, provides 1800 kcal (20 kcal/kg); 99 g Pro (1.1 g Pro/kg); and 911ml free water. Flush with 100ml H2O q4h for hydration status. With flushes, provides 1511ml free water. Will continue to follow and reassess as pt needs, intake, and status change. Franicsca Gonzalez, MS, RD, LD"
[2019-12-02 14:12] LABS: VENTILATOR YES
--- NOTE | 2019-12-02 14:21 | Physical Therapy Progress Note ---
Therapy Progress Note Orders received for PT. Pt. on ventilator and sedated, will check status 12/03/19. ELIAZAR ESTRADA PT Dec 02, 2019 14:21
--- NOTE | 2019-12-02 14:51 | Diagnostic Imaging Report ---
EXAMINATION: Chest 1 view. HISTORY: Intubated. COMPARISON: 12/02/2019. FINDINGS: Endotracheal tube tip terminates 3 cm above the shane. Gastric tube tip terminates below the field of view. There is mild bibasilar atelectasis versus pneumonia. No pneumothorax is seen. No edema. No pleural effusion. IMPRESSION: Mild bibasilar atelectasis versus pneumonia. No pneumothorax. Dictated by: Dictated on workstation # [id number]
[2019-12-02] MEDS: PROPOFOL DRIP (ICU) 100 ML IV SCH ×2 (15:41→22:47)
[2019-12-02 15:48] LABS: CALCIUM 7.7 MG/DL (8.5-10.1); CREATININE SERUM 1.94 MG/DL (0.60-1.30); POTASSIUM 4.8 MMOL/L (3.6-5.0)
[2019-12-02 19:37] LABS: CALCIUM 7.9 MG/DL (8.5-10.1); CREATININE SERUM 1.94 MG/DL (0.60-1.30)
[2019-12-02] MEDS: D5 1/2 NS 1000 ML IV SOLUTION 1,000 ML IV SCH ×3 (19:42→23:45)
[2019-12-02 22:32] LABS: CALCIUM 7.9 MG/DL (8.5-10.1); CREATININE SERUM 1.87 MG/DL (0.60-1.30); POTASSIUM 3.5 MMOL/L (3.6-5.0)
[2019-12-03] VITALS (28 sets, daily range): BP systolic 111–158; BP diastolic 68–90
[2019-12-03] MEDS: D5 1/2 NS 1000 ML IV SOLUTION 1,000 ML IV SCH ×7 (00:19→20:32)
[2019-12-03] MEDS: DexMEDEtomidine 250 ML DRIP 250 ML IV SCH ×3 (01:56→20:51)
[2019-12-03] MEDS: POTASSIUM CL 10MEQ/50ML IVPB 50 ML IV SCH ×10 (02:01→20:31)
[2019-12-03 02:30] LABS: BASOPHILS % (AUTO) 0 % (0-10); EOSINOPHILS % (AUTO) 0 % (0-10); HEMATOCRIT 35 % (40-54); HEMOGLOBIN 11.9 G/DL (13.3-17.7); LYMPHOCYTES # (AUTO) 1.5 X 10^3 (1.0-4.0); LYMPHOCYTES % (AUTO) 14 % (12-44); MEAN CORPUSCULAR HEMOGLOBIN 28 PG (25-34); MEAN CORPUSCULAR HGB CONC 34 G/DL (32-36); MEAN CORPUSCULAR VOLUME 81 FL (80-99); MEAN PLATELET VOLUME 11.5 FL (7.4-10.4); MONOCYTES # (AUTO) 0.9 X 10^3 (0.0-1.0); MONOCYTES % (AUTO) 9 % (0-12); NEUTROPHILS # (AUTO) 7.8 X 10^3 (1.8-7.8); NEUTROPHILS % (AUTO) 76 % (42-75); PLATELET COUNT 225 10^3/uL (130-400); RED CELL DISTRIBUTION WIDTH 13.7 % (10.0-14.5); WHITE BLOOD COUNT 10.3 10^3/uL (4.3-11.0)
[2019-12-03 03:00] LABS: CALCIUM 7.8 MG/DL (8.5-10.1); CREATININE SERUM 1.77 MG/DL (0.60-1.30); MAGNESIUM 2.1 MG/DL (1.6-2.4); PHOSPHORUS 1.1 MG/DL (2.3-4.7); POTASSIUM 3.4 MMOL/L (3.6-5.0)
[2019-12-03 03:50] LABS: ABG BASE EXCESS -11.1 MMOL/L (-2.5-2.5); ABG OXYGEN SATURATION 97 % (94-100); ABG PCO2 32 MMHG (35-45); ABG PO2 73 MMHG (79-93); ABG TCO2 15.4 MMOL/L (21.0-31.0)
[2019-12-03 03:51] LABS: ALLENS TEST YES-POS; INSPIRED O2 21%; PATIENT TEMP 36.6; VENTILATOR YES
[2019-12-03] MEDS: KCL 20 MEQ TAB (K-DUR) PO SCH (03:52)
[2019-12-03] MEDS: MAGNESIUM 1 GM/100 ML IVPB 100 ML IV SCH (03:52)
[2019-12-03 03:53] LABS: ABG PH 7.27 (7.37-7.43)
[2019-12-03] MEDS ORDERED: POTASSIUM CL 10MEQ/50ML IVPB 50 ML IV ONE ×5 (04:00→23:20)
[2019-12-03] MEDS: PROPOFOL DRIP (ICU) 100 ML IV SCH ×4 (04:51→22:52)
[2019-12-03] MEDS: 1/2 NS IV SOLUTION 1,000 ML IV SCH ×5 (05:34→18:34)
--- NOTE | 2019-12-03 05:48 | Diagnostic Imaging Report ---
INDICATION: Dyspnea. COMPARISON: 12/02/2019 FINDINGS: Single frontal radiograph view of the chest was obtained and demonstrates indwelling endotracheal tube with tip just below the level of clavicular heads. Gastric tube is coiled within the stomach. Cardiac silhouette and pulmonary vasculature is within normal limits. There is improved aeration of both bases. Some residual patchy opacity persists within the right base. No large effusion or pneumothorax is seen. Osseous structures show no acute abnormalities. IMPRESSION: 1. Lines and tubes as above. 2. Improved aeration, but with persistent patchy infiltrative opacities in the right base. Dictated by: Dictated on workstation # [id number]
[2019-12-03 06:19] LABS: CALCIUM 7.8 MG/DL (8.5-10.1); CREATININE SERUM 1.58 MG/DL (0.60-1.30); POTASSIUM 3.3 MMOL/L (3.6-5.0)
[2019-12-03] MEDS: PANTOPRAZOLE 40 MG (PROTONIX) VIAL IV SCH (08:15)
--- NOTE | 2019-12-03 08:29 | Occ Therapy Progress Note ---
Therapy Progress Note Pt remains intubated/sedated. OT will continue to monitor pt and initiate tx when pt is more medically stable and able to participate in skilled therapy. MELISSA LUZ OT Dec 03, 2019 08:29
--- NOTE | 2019-12-03 08:29 | Physical Therapy Progress Note ---
Therapy Progress Note Pt remains sedated on ventilator. PT will follow and eval when appropriate. LUBA DEAN DPT Dec 03, 2019 08:29
[2019-12-03] MEDS ORDERED: PANTOPRAZOLE 40 MG (PROTONIX) TAB PO SCH (09:00)
[2019-12-03 10:32] LABS: CALCIUM 7.8 MG/DL (8.5-10.1); CREATININE SERUM 1.38 MG/DL (0.60-1.30); POTASSIUM 2.8 MMOL/L (3.6-5.0)
[2019-12-03] MEDS: inSUlin REGULAR TPN/DRIP ONLY 250 UNITS in NORMAL SALINE 250 ML IV SCH (10:49)
--- NOTE | 2019-12-03 12:36 | Progress Note - Hospitalist ---
Subjective HPI/CC On Admission Date Seen by Provider: Dec 03, 2019 Time Seen by Provider: 12:33 Pt is a 49yoHM with no known past medical history who presented to the ER due to vomiting and malaise for 2 weeks. At the time of my exam he was intubated and sedated and unable to provide any history. All history obtained from ER notes. He had been feeling poorly for the past 2 weeks with nausea and vomiting. Over the last few days he became short of breath as well. He has not travelled or had a fever. He does not have any diarrhea, constipation, dysuria, or pain. He was found to be profoundly acidotic with a pH of 6.97 Subjective/Events-last exam Pt remains intubated and sedated. No ROS possible. RN reports he is doing well. Blood sugars improving. Focused Exam Lactate Level 12/02/19 07:35: Lactic Acid Level 2.82*H 12/02/19 11:20: Lactic Acid Level 1.13 Objective Exam Vital Signs Vital Signs Date Time Temp Pulse Resp B/P (MAP) Pulse Ox O2 Delivery O2 Flow Rate FiO2 12/03/19 11:00 60 22 139/86 (103) 98 Mechanical Ventilator 21.00 12/03/19 10:42 21 12/03/19 06:17 36.6 Capillary Refill : Less Than 3 Seconds General Appearance: Other (intubated and sedated) Respiratory: Lungs Clear, Other (intubated) Cardiovascular: Regular Rate, Rhythm, No Murmur Genital/Rectal: Other (hennessy in place) Neurologic/Psychiatric: Other (sedated, appears comfortable) Results/Procedures Lab Laboratory Tests 12/02/19 13:05 12/02/19 15:17 12/02/19 19:04 12/02/19 22:05 12/03/19 02:25 12/03/19 05:46 12/03/19 10:08 Patient resulted labs reviewed. Imaging: Reviewed Imaging Report Assessment/Plan Assessment and Plan Assess & Plan/Chief Complaint severe DKA new onset diabetes Insulin gtt per protocol BS improving fluid resuscitation per protocol a1c pending Monitor electrolytes- replace K per protocol acute respiratory failure telehealth consulted for vent management, appreciate assistance propofol and precedex for sedated pH much improved from yesterday BAYRON Creatine improving, UOP adequate Continue fluids no baseline available, hopeful this is all acute from volume depletion DVT ppx: Lovenox Critical Care Critically Ill Patient Diagnosis/Problems Diagnosis/Problems (1) Diabetic ketoacidosis Status: Acute Qualifiers: Diabetes mellitus type: other specified (including MAYKEL) Diabetes mellitus complication detail: without coma Qualified Codes: E13.10 - Other specified diabetes mellitus with ketoacidosis without coma (2) Acute renal injury due to hypovolemia Status: Acute (3) Acute respiratory failure Status: Acute Qualifiers: Respiratory failure complication: unspecified whether with hypoxia or hypercapnia Qualified Codes: J96.00 - Acute respiratory failure, unspecified whether with hypoxia or hypercapnia ELISABET ECKERT MD Dec 03, 2019 12:36
[2019-12-03] MEDS: ENOXAPARIN 40 MG/0.4 ML (LOVENOX) SYR SC SCH (14:26)
--- NOTE | 2019-12-03 14:31 | NUR ---
This nurse notified of patients potassium level of 2.8
[2019-12-03 17:14] LABS: BUN/CREATININE RATIO 15; CALCIUM 7.8 MG/DL (8.5-10.1); CARBON DIOXIDE 13 MMOL/L (21-32); CHLORIDE 119 MMOL/L (98-107); CREATININE SERUM 1.14 MG/DL (0.60-1.30); GFR ESTIMATED > 60; GLUCOSE 199 MG/DL (70-105); POTASSIUM 2.9 MMOL/L (3.6-5.0); SODIUM 140 MMOL/L (135-145)
[2019-12-03 21:37] LABS: BUN/CREATININE RATIO 14; CALCIUM 7.9 MG/DL (8.5-10.1); CARBON DIOXIDE 15 MMOL/L (21-32); CHLORIDE 117 MMOL/L (98-107); CREATININE SERUM 1.08 MG/DL (0.60-1.30); GFR ESTIMATED > 60; GLUCOSE 206 MG/DL (70-105); POTASSIUM 2.6 MMOL/L (3.6-5.0); SODIUM 141 MMOL/L (135-145)
--- NOTE | 2019-12-03 21:56 | NUR ---
Notified Dr. Keron BROWN of pt's potassium level of 2.6. No new orders obtained at this time.
[2019-12-04] VITALS (27 sets, daily range): BP systolic 102–172; BP diastolic 66–110
[2019-12-04] MEDS ORDERED: POTASSIUM CL 10MEQ/50ML IVPB 50 ML IV ONE ×8 (00:20→10:30)
[2019-12-04] MEDS: D5 1/2 NS 1000 ML IV SOLUTION 1,000 ML IV SCH ×4 (01:09→16:00)
[2019-12-04 01:29] LABS: BASOPHILS % (AUTO) 0 % (0-10); EOSINOPHILS % (AUTO) 0 % (0-10); HEMATOCRIT 34 % (40-54); HEMOGLOBIN 11.9 G/DL (13.3-17.7); LYMPHOCYTES # (AUTO) 1.7 X 10^3 (1.0-4.0); LYMPHOCYTES % (AUTO) 17 % (12-44); MEAN CORPUSCULAR HEMOGLOBIN 28 PG (25-34); MEAN CORPUSCULAR HGB CONC 35 G/DL (32-36); MEAN CORPUSCULAR VOLUME 80 FL (80-99); MEAN PLATELET VOLUME 11.3 FL (7.4-10.4); MONOCYTES % (AUTO) 9 % (0-12); NEUTROPHILS # (AUTO) 7.7 X 10^3 (1.8-7.8); NEUTROPHILS % (AUTO) 73 % (42-75); PLATELET COUNT 171 10^3/uL (130-400); RED CELL DISTRIBUTION WIDTH 13.9 % (10.0-14.5); WHITE BLOOD COUNT 10.4 10^3/uL (4.3-11.0)
[2019-12-04 01:52] LABS: BUN/CREATININE RATIO 13; CALCIUM 7.9 MG/DL (8.5-10.1); CARBON DIOXIDE 13 MMOL/L (21-32); CHLORIDE 118 MMOL/L (98-107); CREATININE SERUM 0.99 MG/DL (0.60-1.30); GFR ESTIMATED > 60; GLUCOSE 149 MG/DL (70-105); MAGNESIUM 1.7 MG/DL (1.6-2.4); POTASSIUM 2.7 MMOL/L (3.6-5.0); SODIUM 140 MMOL/L (135-145); TRIGLYCERIDES 207 MG/DL (<150)
[2019-12-04 01:57] LABS: PHOSPHORUS < 0.7 MG/DL (2.3-4.7)
[2019-12-04] MEDS ORDERED: POTASSIUM PHOSPHATE INJ 30 MM in NS (IVPB) 250 ML IV ONE ×2 (02:15→18:00)
[2019-12-04 03:53] LABS: ABG OXYGEN SATURATION 95 % (94-100); ABG PCO2 27 MMHG (35-45); ABG PH 7.41 (7.37-7.43); ABG PO2 74 MMHG (79-93); ABG TCO2 17.4 MMOL/L (21.0-31.0)
[2019-12-04 03:56] LABS: ALLENS TEST POSITIVE; INSPIRED O2 16; PATIENT TEMP 38.3; VENTILATOR YES
[2019-12-04] MEDS ORDERED: POT PHOS/NA PHOS (K-PHOS NEUTRAL) PO ONE (04:00)
[2019-12-04] MEDS: POTASSIUM CL 10MEQ/50ML IVPB 50 ML IV SCH ×8 (04:09→23:22)
[2019-12-04] MEDS: PROPOFOL DRIP (ICU) 100 ML IV SCH (05:21)
[2019-12-04 05:45] LABS: BUN/CREATININE RATIO 10; CALCIUM 7.8 MG/DL (8.5-10.1); CARBON DIOXIDE 15 MMOL/L (21-32); CHLORIDE 118 MMOL/L (98-107); CREATININE SERUM 0.98 MG/DL (0.60-1.30); GFR ESTIMATED > 60; GLUCOSE 193 MG/DL (70-105); MAGNESIUM 1.7 MG/DL (1.6-2.4); POTASSIUM 2.8 MMOL/L (3.6-5.0); SODIUM 141 MMOL/L (135-145)
[2019-12-04] MEDS: 1/2 NS IV SOLUTION 1,000 ML IV SCH ×5 (06:06→14:15)
[2019-12-04] MEDS: MAGNESIUM 1 GM/100 ML IVPB 100 ML IV SCH (06:09)
[2019-12-04] MEDS: KCL 20 MEQ TAB (K-DUR) PO SCH (06:10)
[2019-12-04] MEDS ORDERED: MAGNESIUM 1 GM/100 ML IVPB 100 ML IV ONE ×2 (06:15→07:30)
--- NOTE | 2019-12-04 07:10 | Diagnostic Imaging Report ---
INDICATION: Dyspnea. Comparison made with prior examination of 12/03/2019. FINDINGS: Heart size is normal. ET and NG tubes are satisfactory position. There is some venous congestion. No pleural effusion or pneumothorax. Mediastinum unremarkable. IMPRESSION: Mild central pulmonary venous congestion otherwise unremarkable. Dictated by: Dictated on workstation # [id number]
[2019-12-04] MEDS: DexMEDEtomidine 250 ML DRIP 250 ML IV SCH (07:46)
--- NOTE | 2019-12-04 08:16 | Occ Therapy Progress Note ---
Therapy Progress Note Pt remains intubated/sedated. OT will continue to monitor pt and initiate tx when pt is more medically stable and able to participate in skilled therapy. MELISSA LUZ OT Dec 04, 2019 08:16
--- NOTE | 2019-12-04 08:17 | Physical Therapy Progress Note ---
Therapy Progress Note Pt remains intubated and sedated. PT will follow and evaluate when appropriate. LUBA DEAN DPT Dec 04, 2019 08:17
--- NOTE | 2019-12-04 08:20 | Progress Note - Hospitalist ---
Subjective HPI/CC On Admission Date Seen by Provider: Dec 04, 2019 Time Seen by Provider: 08:17 Pt is a 49yoHM with no known past medical history who presented to the ER due to vomiting and malaise for 2 weeks. At the time of my exam he was intubated and sedated and unable to provide any history. All history obtained from ER notes. He had been feeling poorly for the past 2 weeks with nausea and vomiting. Over the last few days he became short of breath as well. He has not travelled or had a fever. He does not have any diarrhea, constipation, dysuria, or pain. He was found to be profoundly acidotic with a pH of 6.97 Subjective/Events-last exam Pt remains intubated and sedated. No concerns per RN. Focused Exam Lactate Level 12/02/19 07:35: Lactic Acid Level 2.82*H 12/02/19 11:20: Lactic Acid Level 1.13 Objective Exam Vital Signs Vital Signs Date Time Temp Pulse Resp B/P (MAP) Pulse Ox O2 Delivery O2 Flow Rate FiO2 12/04/19 08:00 36.7 12/04/19 08:00 70 15 143/86 (105) 94 Mechanical Ventilator 21.00 12/04/19 07:05 21 Capillary Refill : Less Than 3 Seconds General Appearance: WD/WN, Other (on vent) Respiratory: Lungs Clear, Other (on vent) Cardiovascular: Regular Rate, Rhythm, No Murmur, Normal Peripheral Pulses Gastrointestinal: Normal Bowel Sounds, Non Tender, Soft Extremity: Normal Capillary Refill, No Calf Tenderness, No Pedal Edema Neurologic/Psychiatric: Other (sedated, appears comfortable) Results/Procedures Lab Laboratory Tests 12/03/19 10:08 12/03/19 16:45 12/03/19 21:13 12/04/19 01:10 12/04/19 05:05 Patient resulted labs reviewed. Imaging: Reviewed Imaging Report Assessment/Plan Assessment and Plan Assess & Plan/Chief Complaint severe DKA Hypokalemia Hypomagnesemia new onset diabetes Insulin gtt per protocol BS much improved, gap closed, acidosis likely due to hyperchloremia a1c 12.7 Monitor electrolytes- replace K per protocol acute respiratory failure telehealth consulted for vent management, appreciate assistance propofol and precedex for sedated pH much improved from yesterday BAYRON- resolved Creatine 0.98 UOP good 1.57ml/kg/hr yesterday Continue fluids DVT ppx: Lovenox Critical Care Critically Ill Patient Diagnosis/Problems Diagnosis/Problems (1) Diabetic ketoacidosis Status: Acute Qualifiers: Diabetes mellitus type: other specified (including MAYKEL) Diabetes mellitus complication detail: without coma Qualified Codes: E13.10 - Other specified diabetes mellitus with ketoacidosis without coma (2) Acute renal injury due to hypovolemia Status: Acute (3) Acute respiratory failure Status: Acute Qualifiers: Respiratory failure complication: unspecified whether with hypoxia or hypercapnia Qualified Codes: J96.00 - Acute respiratory failure, unspecified whether with hypoxia or hypercapnia (4) Hypokalemia (5) Hypomagnesemia (6) Hypophosphatemia ELISABET ECKERT MD Dec 04, 2019 08:20
[2019-12-04] MEDS: PANTOPRAZOLE 40 MG (PROTONIX) VIAL IV SCH (09:03)
[2019-12-04] MEDS: inSUlin REGULAR TPN/DRIP ONLY 250 UNITS in NORMAL SALINE 250 ML IV SCH (09:07)
--- NOTE | 2019-12-04 09:14 | NUR ---
THIS RN SPOKE WITH E-ICU DOCTOR, ORDERS TO HOLD PROPOFOL AND WAKE PT UP.
[2019-12-04 09:25] LABS: BUN/CREATININE RATIO 9; CALCIUM 7.8 MG/DL (8.5-10.1); CARBON DIOXIDE 16 MMOL/L (21-32); CHLORIDE 119 MMOL/L (98-107); CREATININE SERUM 0.96 MG/DL (0.60-1.30); GFR ESTIMATED > 60; GLUCOSE 168 MG/DL (70-105); POTASSIUM 2.8 MMOL/L (3.6-5.0); SODIUM 142 MMOL/L (135-145)
[2019-12-04 11:24] LABS: ABG BASE EXCESS -5.4 MMOL/L (-2.5-2.5); ABG OXYGEN SATURATION 70 % (94-100); ABG PCO2 31 MMHG (35-45); ABG PH 7.39 (7.37-7.43); ABG PO2 48 MMHG (79-93); ABG TCO2 19.4 MMOL/L (21.0-31.0); ALLENS TEST POSITIVE
[2019-12-04 11:25] LABS: INSPIRED O2 24%; PATIENT TEMP 37.6; VENTILATOR YES
--- NOTE | 2019-12-04 11:46 | NUR ---
THIS RN SPOKE WITH E-ICU DOCTOR, REPORTED ABG RESULTS. RECEIVED ORDERS TO EXTUBATE. RT NOTIFIED
--- NOTE | 2019-12-04 12:40 | NUR ---
RT AND THIS RN TO BEDSIDE. PULLED INTUBATION TUBE. VITALS REMAINED STABLE. PT ABLE TO SPEAK. TUBE PULLED AT 1235.
[2019-12-04] MEDS: ENOXAPARIN 40 MG/0.4 ML (LOVENOX) SYR SC SCH (14:07)
--- NOTE | 2019-12-04 14:10 | Occupational Therapy Eval ---
OT Evaluation-General/PLF Medical Diagnosis Admission Date Dec 02, 2019 at 09:12 Medical Diagnosis: DKA Onset Date: Dec 02, 2019 Therapy Diagnosis Therapy Diagnosis: impaired ADLs/functional mobility Precautions Precautions/Isolations: Fall Prevention, Standard Precautions Safety Interventions: Bed Exit Alarm Referral Physician: Derek Referral Reason: Evaluation/Treatment Medical History Current History Per H&P: "Pt is a 49yoHM with no known past medical history who presented to the ER due to vomiting and malaise for 2 weeks. At the time of my exam he was intubated and sedated and unable to provide any history. All history obtained from ER notes. He had been feeling poorly for the past 2 weeks with nausea and vomiting. Over the last few days he became short of breath as well. He has not travelled or had a fever. He does not have any diarrhea, constipation, dysuria, or pain. He was found to be profoundly acidotic with a pH of 6.97" pt intubated 12/02/2019, extubated 12/04/2019 Reviewed History: Yes Social History Current Living Status: Alone ADL-Prior Level of Function SCALE: Activities may be completed with or without assistive devices. 7-Uwzfasrgym-xxupduh completes the activity by him/herself with no assistance from a helper. 5-Set-up or Clean-up Assistance-helper sets up or cleans up; patient completes activity. [place] assists only prior to or following the activity. 4-Supervision or Touching Assistance-helper provides verbal cues and/or touching/steadying and/or contact guard assistance as patient completes activity. Assistance may be provided throughout the activity or intermittently. 3-Partial/Moderate Assistance-helper does LESS THAN HALF the effort. [place] lifts, holds or supports trunk or limbs, but provides less than half the effort. 2-Substantial/Maximal Assistance-helper does MORE THAN HALF the effort. [place] lifts or holds trunk or limbs and provides more than half the effort. 3-Bpczhcoep-gfjxwq does ALL the effort. Patient does none of the effort to complete the activity. Or, the assistance of 2 or more helpers is required for the patient to complete the activity. If activity was not attempted, code reason: 7-Patient Refused. 9-Not Applicable-not attempted and the patient did not perform the activity before the current illness, exacerbation or injury. 10-Not Attempted due to Environmental Limitations-(lack of equipment, weather restraints, etc.). 88-Not Attempted due to Medical Conditions or Safety Concerns. ADL PLOF Comments Pt reports he lived alone prior to hospitalization. He indicates he was independent in all ADLs and functional mobility without AE/AD. OT attempted to ask further questions about his living environment and PLOF, but pt did not answer some questions (possibly due to language barrier). OT attempted to demo and reword some questions, but still unable to get full history from pt. Self Care: Independent Functional Cognition: Independent OT Current Status Subjective OT visit post extubation on this date. Pt laying in bed, reports some pain but he did not provide a pain rating. He agreed to OT evaluation but said he is tired and weak. Pt communicated with OT in Polish during session, pt had to repeat some answers a couple of times in order for OT to fully understand what pt was saying. Current Glasses/Contacts: No Hearing Aids: No Dentures/Partials: No Upper Extremity ROM WFL, BUE shoulder flexion to approx 150 degrees Upper Extremity Coordination WFL Upper Extremity Strength decreased, grossly 3+/5 MMT. Slightly increased wallpaper hanger helper strength in left hand vs right. Other Treatments Pt laying in bed, provided information about PLOF and home set up. OT educated pt on the purpose and benefits of OT while pt is admitted to hospital, he verbalized understanding. Pt participated in ROM screening and MMT. He states he feels tired and weak today. OT informed pt she would let him rest but OT will be back next available date for tx, he verbalized understanding. Post OT eval, pt laying in bed, call light in reach and all needs met. Education OT Patient Education: Correct positioning, Energy conservation, Modified ADL techniques, Progress toward Goal/Update tx plan, Purpose of tx/functional activities Teaching Recipient: Patient Teaching Methods: Discussion Response to Teaching: Verbalize Understanding, Reinforcement Needed OT Security Solutions Architect Goals Security Solutions Architect Goals Time Frame: Dec 18, 2019 Eating (QC): 6 Oral Hygiene (QC): 6 Toileting Hygiene (QC): 6 Shower/Bathe Self (QC): 6 Upper Body Dressing (QC): 6 Lower Body Dressing (QC): 6 On/Off Footwear (QC): 6 Additional Goals: 1-Demonstrate ADL Tasks, 2-Verbalize Understanding, 3- ImproveStrength/Ade 1=Demonstrate adherence to instructed precautions during ADL tasks. 2=Patient will verbalize/demonstrate understanding of assistive devices/modifications for ADL. 3=Patient will improve strength/tolerance for activity to enable patient to perform ADL's. OT Education/Plan Problem List/Assessment Assessment: Decreased Activ Tolerance, Decreased UE Strength Discharge Recommendations Plan/Recommendations: Continue POC Treatment Plan/Plan of Care Treatment,Training & Education: Yes Patient would benefit from OT for education, treatment and training to promote independence in ADL's, mobility, safety and/or upper extremity function for ADL's. Plan of Care: ADL Retraining, Functional Mobility, UE Funct Exercise/Act Treatment Duration: Dec 18, 2019 Frequency: 5 times per week Estimated Hrs Per Day: .25 hour per day Agreement: Yes Rehab Potential: Good Time/GCodes Start Time: 13:50 Stop Time: 13:58 Total Time Billed (hr/min): 8 Billed Treatment Time 1, MELISSA RUFFIN OT Dec 04, 2019 14:10
--- NOTE | 2019-12-04 14:35 | ST Dysphagia Evaluation ---
Speech Evaluation-General Medical Diagnosis DKA Onset Date: Dec 02, 2019 Therapy Diagnosis Therapy Diagnosis: Oropharyngeal-dysphagia Precautions Precautions: Aspiration Referral Referring Physician: Dr. Reed Medical History Reviewed History: Yes Social History Current Living Status: Alone Speech PLF/Current-Dysphagia Prior Level of Function Patient was able to eat whatever he wanted prior to his illness. Subjective Patient was pleasant and cooperative with Bedside Dysphagia Evaluation. Cognitive Status Patient Orientation: Person, Place, Situation Oral Motor Skills Dentition: Incisors, Molars, Natural Ability to Follow Directions: Good Patient was NPO pending BDE. Oral Expression Ability: Moderate Impairment Patient's primary language is Nepalese. Voice Voice Phonatory-Based Quality: Breathy, Weak Voice Pitch: Mildly Low Voice Loudness: Mildly Soft/Quiet Face Facial Symmetry: Symmetrical Oral-Facial Assessment Oral-Facial Dentition: Normal Labial Seal Description: Normal Smile: Normal Lingual Protrusion: Normal Lingual ROM: Normal Lingual Strength: Normal Pharynx Velopharyngeal Move.: Normal Volitional Dry Swallow: Yes Voluntary Cough: Yes Can Clear Throat Volitionally: Yes Dysphagia Evaluation Consistencies Presented: Regular, Thin Liquid, Mechanical Soft, Pureed Oral phase is within normal range of function. Pharyngeal phase is within normal range of function. Dietary Recommendations: Regular Liquid Recommendations: Thin Swallowing Precautions: Alternate Liquids/Solids, Double Swallow, Decreased Bolus 1/2 Tsp, Liquids from Straw, Liquids from Spoon, Small Bites and Sips, Sitting Upright 90 Degrees, Sitting 90 Degrees 30 Post Intake Dysphagia Evaluation Summary Patient is a pleasant 49 year old male who was admitted to the ICU via ED due to sepsis. Patient completed the Bedside Dysphagia Evaluation with the following presentations. Thin liquids were given 1/2 tsp x3 and small sips via straw x2 without difficulty. The patient was also given 1/2 tsp bites of puree, mechanical soft and regular without difficulty. Patient is recommended for regular and thin liquids. Patient's diet was written on his white board and provided to his nurse. Barriers to Learning Patient's primary language is Nepalese Speech-Plan Patient/Family Goals Patient/Family Goals: Patient plans on returning home upon hospital discharge. Treatment Plan Speech Therapy Treatment Plan: Continue Plan of Care Treatment Duration: Dec 04, 2019 Frequency: 1 time per week Estimated Hrs Per Day: .25 hour per day Rehab Potential: Good Barriers to Learning: Patient's primary language is Nepalese Pt/Family Agrees to Plan: Yes Safety Risks/Education Teaching Recipient: Patient Teaching Methods: Demonstration, Discussion Response to Teaching: Verbalize Understanding, Return Demonstration Education Topics Provided: Safety of oral intake and diet level Time Speech Therapy Time In: 14:15 Speech Therapy Time Out: 14:30 Total Billed Time: 15 Billed Treatment Time Sharri VIELKA Marcus Dec 04, 2019 14:35
[2019-12-04] MEDS: inSUlin ASPART (NovoLOG) 1 UNIT/0.01 ML (CHARGE PER UNIT) SC SCH ×2 (16:00→22:16)
[2019-12-04 16:57] LABS: POTASSIUM 2.5 MMOL/L (3.6-5.0)
[2019-12-04 16:58] LABS: PHOSPHORUS < 0.7 MG/DL (2.3-4.7)
[2019-12-04] MEDS ORDERED: ACETAMINOPHEN 325 MG TABLET PO PRN (17:15)
[2019-12-04] MEDS ORDERED: ONDANSETRON 4 MG/2 ML (SDV) Z0FRAN IVP ONE (21:30)
[2019-12-04] MEDS: AUGMENTIN 875 MG TAB (AMOXICILLIN/CLAVULANATE) PO SCH (21:45)
--- NOTE | 2019-12-04 22:12 | NUR ---
Pt nauseous, vomited on self, bed bath given, E-ICU consulted, awaiting orders.
[2019-12-05] VITALS (24 sets, daily range): BP systolic 106–166; BP diastolic 82–111
[2019-12-05] MEDS: POTASSIUM CL 10MEQ/50ML IVPB 50 ML IV SCH (01:02)
--- NOTE | 2019-12-05 01:04 | NUR ---
This RN to bedside, language line utilized, pt describes having "a worm" in his throat, white patches noted all over pt's tongue, E-ICU consulted, awaiting orders.
[2019-12-05 03:21] LABS: BASOPHILS % (AUTO) 0 % (0-10); EOSINOPHILS % (AUTO) 0 % (0-10); HEMATOCRIT 36 % (40-54); HEMOGLOBIN 12.9 G/DL (13.3-17.7); LYMPHOCYTES # (AUTO) 1.9 X 10^3 (1.0-4.0); LYMPHOCYTES % (AUTO) 15 % (12-44); MEAN CORPUSCULAR HEMOGLOBIN 28 PG (25-34); MEAN CORPUSCULAR HGB CONC 35 G/DL (32-36); MEAN CORPUSCULAR VOLUME 79 FL (80-99); MEAN PLATELET VOLUME 11.7 FL (7.4-10.4); MONOCYTES # (AUTO) 1.2 X 10^3 (0.0-1.0); MONOCYTES % (AUTO) 9 % (0-12); NEUTROPHILS # (AUTO) 10.1 X 10^3 (1.8-7.8); NEUTROPHILS % (AUTO) 76 % (42-75); PLATELET COUNT 163 10^3/uL (130-400); WHITE BLOOD COUNT 13.2 10^3/uL (4.3-11.0)
[2019-12-05 03:40] LABS: BUN/CREATININE RATIO 8; CALCIUM 7.7 MG/DL (8.5-10.1); CARBON DIOXIDE 15 MMOL/L (21-32); CHLORIDE 111 MMOL/L (98-107); CREATININE SERUM 1.09 MG/DL (0.60-1.30); GFR ESTIMATED > 60; GLUCOSE 332 MG/DL (70-105); MAGNESIUM 1.8 MG/DL (1.6-2.4); PHOSPHORUS 2.6 MG/DL (2.3-4.7); SODIUM 142 MMOL/L (135-145)
[2019-12-05] MEDS: KCL 20 MEQ TAB (K-DUR) PO SCH ×4 (06:07→15:47)
[2019-12-05] MEDS: MAGNESIUM 1 GM/100 ML IVPB 100 ML IV SCH (06:07)
[2019-12-05] MEDS: NYSTATIN ORAL SUSP 5 ML UDC PO SCH ×3 (06:19→17:18)
[2019-12-05] MEDS: inSUlin ASPART (NovoLOG) 1 UNIT/0.01 ML (CHARGE PER UNIT) SC SCH ×4 (06:19→20:56)
--- NOTE | 2019-12-05 07:55 | Diagnostic Imaging Report ---
EXAM: CHEST 1 VIEW, AP/PA ONLY INDICATION: Dyspnea. COMPARISON: 12/04/2019. FINDINGS: Normal heart size and central pulmonary vascularity. No focal pulmonary opacity, pleural effusion or pneumothorax. No acute osseous findings. IMPRESSION: 1. Interval extubation and removal of the NGT. 2. No acute cardiopulmonary findings. Dictated by: Dictated on workstation # [id number]
[2019-12-05] MEDS: AUGMENTIN 875 MG TAB (AMOXICILLIN/CLAVULANATE) PO SCH (08:15)
[2019-12-05] MEDS: PANTOPRAZOLE 40 MG (PROTONIX) VIAL IV SCH (08:16)
--- NOTE | 2019-12-05 08:37 | Physical Therapy Evaluation ---
PT Evaluation-General Medical Diagnosis Admission Date Dec 02, 2019 at 09:12 Medical Diagnosis: DKA Onset Date: Dec 02, 2019 Therapy Diagnosis Therapy Diagnosis: impaired mobility, strength, endurance Precautions Precautions/Isolations: Fall Prevention, Standard Precautions Referral Physician: Derek Reason for Referral: Evaluation/Treatment Medical History Pertinent Medical History: DM Reviewed History: Yes Social History Current Living Status: Alone unable to assess, patient doesn't speak romanian Prior Prior Level of Function SCALE: Activities may be completed with or without assistive devices. 8-Qclpgdltut-mejvcdw completes the activity by him/herself with no assistance from a helper. 5-Set-up or Clean-up Assistance-helper sets up or cleans up; patient completes activity. [place] assists only prior to or following the activity. 4-Supervision or Touching Assistance-helper provides verbal cues and/or touching/steadying and/or contact guard assistance as patient completes activity. Assistance may be provided throughout the activity or intermittently. 3-Partial/Moderate Assistance-helper does LESS THAN HALF the effort. [place] lifts, holds or supports trunk or limbs, but provides less than half the effort. 2-Substantial/Maximal Assistance-helper does MORE THAN HALF the effort. [place] lifts or holds trunk or limbs and provides more than half the effort. 9-Rviivxags-hipkcm does ALL the effort. Patient does none of the effort to complete the activity. Or, the assistance of 2 or more helpers is required for the patient to complete the activity. If activity was not attempted, code reason: 7-Patient Refused. 9-Not Applicable-not attempted and the patient did not perform the activity before the current illness, exacerbation or injury. 10-Not Attempted due to Environmental Limitations-(lack of equipment, weather restraints, etc.). 88-Not Attempted due to Medical Conditions or Safety Concerns. unknown PT Evaluation-Current Subjective Patient in bed pre tx, communicate with patient with non-verbal cues, indicates he doesn't have any pain. Pt/Family Goals none stated Objective Patient Orientation: Unable to Assess Attachments: Mccarty Catheter ROM/Strength ROM Lower Extremities WNL Strength Lower Extremities 4+/5 gross BLE Sensory Hearing: Functional Transfers Roll Left to Right (QC): 6 Lying to Sitting/Side of Bed(Q: 6 Sit to Stand (QC): 4 Chair/Cjb-ri-Zskqd Xfer(QC): 4 Gait Does the Patient Walk?: Yes Mode of Locomotion: Walk Anticipated Mode of Locomotion: Walk Distance: 3' Gait Assistive Device: None Comments/Gait Description Patient ambulates a few feet from the bed to recliner, slightly unsteady, CGA Balance Sitting Static: Normal Sitting Dynamic: Normal Standing Static: Fair Standing Dynamic: Fair Treatment BLE seated exercies x20 (AP, LAQ) Assessment/Needs Patient has impaired mobility, balance, slight LE weakness. Rehab Potential: Fair PT Universal Winding Machine Operator Goals Universal Winding Machine Operator Goals PT Universal Winding Machine Operator Goals Time Frame: Dec 12, 2019 Roll Left & Right (QC): 6 Sit to Lying (QC): 6 Lying-Sitting on Side/Bed(QC): 6 Sit to Stand (QC): 6 Chair/Jqt-vh-Gdglf Xfer(QC): 6 Walk 10 feet (QC): 6 Walk 50ft with 2 Turns (QC): 6 PT Plan Problem List Problem List: Activity Tolerance, Functional Strength, Safety, Balance, Gait, Transfer Treatment/Plan Treatment Plan: Continue Plan of Care Treatment Plan: Education, Functional Activity Ade, Functional Strength, Gait, Safety, Therapeutic Exercise, Transfers Treatment Duration: Dec 12, 2019 Frequency: 6 times per week Estimated Hrs Per Day: .25 hour per day Patient and/or Family Agrees t: Yes Safety Risks/Education Patient Education: Gait Training, Transfer Techniques, Correct Positioning, Safety Issues Teaching Recipient: Patient Teaching Methods: Demonstration, Discussion Response to Teaching: Reinforcement Needed Discharge Recommendations Plan Patient will perform bed mobility and transfer training, balance and endurance training ,functional strengthening, stair training, gait training, and education, to improve functional mobility and independence at home. Therapy Discharge Recommendati: Home & Family Time/GCodes Time In: 821 Time Out: 831 Total Billed Treatment Time: 10 Total Billed Treatment 1 visit EVL 10' MARCO VAUGHN PT Dec 05, 2019 08:37
[2019-12-05] MEDS ORDERED: ONDANSETRON 4 MG/2 ML (SDV) Z0FRAN ONE (09:00)
--- NOTE | 2019-12-05 09:03 | Progress Note - Hospitalist ---
Subjective HPI/CC On Admission Date Seen by Provider: Dec 05, 2019 Time Seen by Provider: 08:58 Pt is a 49yoHM with no known past medical history who presented to the ER due to vomiting and malaise for 2 weeks. At the time of my exam he was intubated and sedated and unable to provide any history. All history obtained from ER notes. He had been feeling poorly for the past 2 weeks with nausea and vomiting. Over the last few days he became short of breath as well. He has not travelled or had a fever. He does not have any diarrhea, constipation, dysuria, or pain. He was found to be profoundly acidotic with a pH of 6.97 Subjective/Events-last exam Pt reports feeling better but nauseated. Otherwise no complaints. Focused Exam Lactate Level 12/02/19 11:20: Lactic Acid Level 1.13 Objective Exam Vital Signs Vital Signs Date Time Temp Pulse Resp B/P (MAP) Pulse Ox O2 Delivery O2 Flow Rate FiO2 12/05/19 08:00 36.8 12/05/19 07:00 126 12/05/19 07:00 21 128/88 (101) 98 Room Air 12/04/19 16:00 21 12/04/19 12:00 24.00 Capillary Refill : Less Than 3 Seconds General Appearance: No Apparent Distress, WD/WN Respiratory: Lungs Clear, No Respiratory Distress Cardiovascular: Regular Rate, Rhythm, No Murmur Gastrointestinal: Normal Bowel Sounds, Non Tender, Soft Neurologic/Psychiatric: Alert, Oriented x3 Results/Procedures Lab Laboratory Tests 12/04/19 09:00 12/04/19 16:26 12/05/19 03:07 Patient resulted labs reviewed. Imaging: Reviewed Imaging Report Assessment/Plan Assessment and Plan Assess & Plan/Chief Complaint severe DKA Hypokalemia Hypomagnesemia Hypophosphatemia new onset DM Titrate off drip yesterday but BS still quite high Will repeat BMP to monitor gap/acidosis as had a very mild gap this AM Increase Levemir, increase Sliding Scale a1c 12.7 Monitor electrolytes- replace K per protocol acute respiratory failure- resolved Extubated 12/03 BAYRON- resolved Creatine 1.09 UOP good 1.78ml/kg/hr yesterday Continue fluids DVT ppx: Lovenox Critical Care Critically Ill Patient Diagnosis/Problems Diagnosis/Problems (1) Diabetic ketoacidosis Status: Acute Qualifiers: Diabetes mellitus type: other specified (including MAYKEL) Diabetes mellitus complication detail: without coma Qualified Codes: E13.10 - Other specified diabetes mellitus with ketoacidosis without coma (2) Acute renal injury due to hypovolemia Status: Acute (3) Acute respiratory failure Status: Acute Qualifiers: Respiratory failure complication: unspecified whether with hypoxia or hypercapnia Qualified Codes: J96.00 - Acute respiratory failure, unspecified whether with hypoxia or hypercapnia (4) Hypokalemia (5) Hypomagnesemia (6) Hypophosphatemia ELISABET ECKERT MD Dec 05, 2019 09:03
[2019-12-05 09:35] LABS: BUN/CREATININE RATIO 10; CARBON DIOXIDE 16 MMOL/L (21-32); CHLORIDE 110 MMOL/L (98-107); CREATININE SERUM 1.18 MG/DL (0.60-1.30); GFR ESTIMATED > 60; SODIUM 142 MMOL/L (135-145)
[2019-12-05 09:37] LABS: GLUCOSE 429 MG/DL (70-105)
[2019-12-05] MEDS ORDERED: ONDANSETRON 4 MG/2 ML (SDV) Z0FRAN IVP PRN (09:45)
[2019-12-05] MEDS: DexMEDEtomidine 250 ML DRIP 250 ML IV SCH (12:12)
[2019-12-05] MEDS: ENOXAPARIN 40 MG/0.4 ML (LOVENOX) SYR SC SCH (12:17)
[2019-12-06] VITALS (24 sets, daily range): BP systolic 120–176; BP diastolic 89–113
[2019-12-06] MEDS: NYSTATIN ORAL SUSP 5 ML UDC PO SCH ×4 (00:24→18:17)
[2019-12-06 03:56] LABS: BASOPHILS % (AUTO) 0 % (0-10); EOSINOPHILS # (AUTO) 0.1 10^3/uL (0.0-0.3); EOSINOPHILS % (AUTO) 0 % (0-10); HEMATOCRIT 38 % (40-54); HEMOGLOBIN 12.8 G/DL (13.3-17.7); LYMPHOCYTES # (AUTO) 2.4 X 10^3 (1.0-4.0); LYMPHOCYTES % (AUTO) 17 % (12-44); MEAN CORPUSCULAR HEMOGLOBIN 27 PG (25-34); MEAN CORPUSCULAR HGB CONC 34 G/DL (32-36); MEAN CORPUSCULAR VOLUME 79 FL (80-99); MEAN PLATELET VOLUME 11.7 FL (7.4-10.4); MONOCYTES # (AUTO) 1.7 X 10^3 (0.0-1.0); MONOCYTES % (AUTO) 11 % (0-12); NEUTROPHILS # (AUTO) 10.4 X 10^3 (1.8-7.8); NEUTROPHILS % (AUTO) 71 % (42-75); PLATELET COUNT 194 10^3/uL (130-400); RED CELL DISTRIBUTION WIDTH 14.9 % (10.0-14.5); WHITE BLOOD COUNT 14.5 10^3/uL (4.3-11.0)
[2019-12-06 04:43] LABS: BUN/CREATININE RATIO 16; CALCIUM 8.4 MG/DL (8.5-10.1); CARBON DIOXIDE 16 MMOL/L (21-32); CHLORIDE 115 MMOL/L (98-107); CREATININE SERUM 0.99 MG/DL (0.60-1.30); GFR ESTIMATED > 60; GLUCOSE 282 MG/DL (70-105); MAGNESIUM 2.2 MG/DL (1.6-2.4); PHOSPHORUS 2.4 MG/DL (2.3-4.7); POTASSIUM 3.4 MMOL/L (3.6-5.0); SODIUM 146 MMOL/L (135-145); TRIGLYCERIDES 118 MG/DL (<150)
[2019-12-06] MEDS: MAGNESIUM 1 GM/100 ML IVPB 100 ML IV SCH (05:03)
[2019-12-06] MEDS: KCL 20 MEQ TAB (K-DUR) PO SCH (05:03)
[2019-12-06] MEDS: POTASSIUM CL 10MEQ/50ML IVPB 50 ML IV SCH (05:03)
[2019-12-06] MEDS: inSUlin ASPART (NovoLOG) 1 UNIT/0.01 ML (CHARGE PER UNIT) SC SCH ×4 (06:11→20:53)
--- NOTE | 2019-12-06 07:13 | Diagnostic Imaging Report ---
INDICATION: Dyspnea. Comparison made with prior examination from 12/05/2019. FINDINGS: Heart size is normal. There is some patchy right basilar atelectasis and/or pneumonitis. There is no pleural effusion or pneumothorax. Mediastinum is unremarkable. IMPRESSION: Patchy right basilar atelectasis and/or pneumonitis. Dictated by: Dictated on workstation # [id number]
[2019-12-06] MEDS ORDERED: KCL 20 MEQ TAB (K-DUR) PO ONE (09:00)
--- NOTE | 2019-12-06 09:21 | Progress Note - Hospitalist ---
Subjective HPI/CC On Admission Date Seen by Provider: Dec 06, 2019 Time Seen by Provider: 09:17 Pt is a 49yoHM with no known past medical history who presented to the ER due to vomiting and malaise for 2 weeks. At the time of my exam he was intubated and sedated and unable to provide any history. All history obtained from ER notes. He had been feeling poorly for the past 2 weeks with nausea and vomiting. Over the last few days he became short of breath as well. He has not travelled or had a fever. He does not have any diarrhea, constipation, dysuria, or pain. He was found to be profoundly acidotic with a pH of 6.97 Subjective/Events-last exam Pt reports feeling better today. No complaints. Nausea improved. Discussed with RN and blood sugars still high. Objective Exam Vital Signs Vital Signs Date Time Temp Pulse Resp B/P (MAP) Pulse Ox O2 Delivery O2 Flow Rate FiO2 12/06/19 08:00 36.3 12/06/19 08:00 103 14 153/96 (115) 94 Room Air 12/04/19 16:00 21 12/04/19 12:00 24.00 Capillary Refill : Less Than 3 Seconds General Appearance: No Apparent Distress, WD/WN Respiratory: Lungs Clear, No Respiratory Distress Cardiovascular: Regular Rate, Rhythm, No Murmur Gastrointestinal: Normal Bowel Sounds, Non Tender, Soft Neurologic/Psychiatric: Alert, Oriented x3 Results/Procedures Lab Laboratory Tests 12/06/19 03:23 Patient resulted labs reviewed. Imaging: Reviewed Imaging Report Assessment/Plan Assessment and Plan Assess & Plan/Chief Complaint severe DKA Hypokalemia Hypomagnesemia Hypophosphatemia new onset DM Increase insulin again today Will repeat BMP at noon a1c 12.7 Monitor electrolytes- replace K per protocol acute respiratory failure- resolved Extubated 12/03 BAYRON- resolved Creatine 0.99 UOP good 2.22 ml/kg/hr yesterday Continue fluids DVT ppx: Lovenox Critical Care Critically Ill Patient Diagnosis/Problems Diagnosis/Problems (1) Diabetic ketoacidosis Status: Acute Qualifiers: Diabetes mellitus type: other specified (including MAYKEL) Diabetes mellitus complication detail: without coma Qualified Codes: E13.10 - Other specified diabetes mellitus with ketoacidosis without coma (2) Acute renal injury due to hypovolemia Status: Acute (3) Acute respiratory failure Status: Acute Qualifiers: Respiratory failure complication: unspecified whether with hypoxia or hypercapnia Qualified Codes: J96.00 - Acute respiratory failure, unspecified whether with hypoxia or hypercapnia (4) Hypokalemia Status: Acute (5) Hypomagnesemia Status: Resolved Resolution Date/Time: 12/06/19 @ 09:20 (6) Hypophosphatemia Status: Resolved Resolution Date/Time: 12/06/19 @ 09:20 ELISABET ECKERT MD Dec 06, 2019 09:20
[2019-12-06] MEDS: PANTOPRAZOLE 40 MG (PROTONIX) VIAL IV SCH (09:32)
[2019-12-06] MEDS: ENOXAPARIN 40 MG/0.4 ML (LOVENOX) SYR SC SCH (11:36)
[2019-12-06 12:45] LABS: BUN/CREATININE RATIO 17; CALCIUM 8.1 MG/DL (8.5-10.1); CARBON DIOXIDE 20 MMOL/L (21-32); CHLORIDE 111 MMOL/L (98-107); CREATININE SERUM 0.96 MG/DL (0.60-1.30); GFR ESTIMATED > 60; GLUCOSE 378 MG/DL (70-105); POTASSIUM 3.7 MMOL/L (3.6-5.0); SODIUM 144 MMOL/L (135-145)
[2019-12-07] VITALS (9 sets, daily range): BP systolic 122–158; BP diastolic 85–102
[2019-12-07] MEDS: NYSTATIN ORAL SUSP 5 ML UDC PO SCH ×3 (00:09→11:27)
[2019-12-07 03:38] LABS: BASOPHILS % (AUTO) 0 % (0-10); EOSINOPHILS # (AUTO) 0.2 10^3/uL (0.0-0.3); EOSINOPHILS % (AUTO) 2 % (0-10); HEMATOCRIT 40 % (40-54); HEMOGLOBIN 13.3 G/DL (13.3-17.7); LYMPHOCYTES # (AUTO) 3.3 X 10^3 (1.0-4.0); LYMPHOCYTES % (AUTO) 28 % (12-44); MEAN CORPUSCULAR HEMOGLOBIN 28 PG (25-34); MEAN CORPUSCULAR HGB CONC 34 G/DL (32-36); MEAN CORPUSCULAR VOLUME 82 FL (80-99); MEAN PLATELET VOLUME 11.4 FL (7.4-10.4); MONOCYTES # (AUTO) 1.1 X 10^3 (0.0-1.0); MONOCYTES % (AUTO) 10 % (0-12); NEUTROPHILS % (AUTO) 60 % (42-75); PLATELET COUNT 175 10^3/uL (130-400); RED CELL DISTRIBUTION WIDTH 14.4 % (10.0-14.5); WHITE BLOOD COUNT 11.6 10^3/uL (4.3-11.0)
[2019-12-07 03:51] LABS: BUN/CREATININE RATIO 18; CALCIUM 8.2 MG/DL (8.5-10.1); CARBON DIOXIDE 23 MMOL/L (21-32); CHLORIDE 110 MMOL/L (98-107); CREATININE SERUM 0.88 MG/DL (0.60-1.30); GFR ESTIMATED > 60; GLUCOSE 218 MG/DL (70-105); MAGNESIUM 2.1 MG/DL (1.6-2.4); PHOSPHORUS 2.7 MG/DL (2.3-4.7); POTASSIUM 3.4 MMOL/L (3.6-5.0); SODIUM 144 MMOL/L (135-145)
[2019-12-07] MEDS: MAGNESIUM 1 GM/100 ML IVPB 100 ML IV SCH (04:08)
[2019-12-07] MEDS: POTASSIUM CL 10MEQ/50ML IVPB 50 ML IV SCH (04:08)
[2019-12-07] MEDS: KCL 20 MEQ TAB (K-DUR) PO SCH (04:08)
--- NOTE | 2019-12-07 05:14 | Pulmonary Consultation ---
History of Present Illness History of Present Illness Date Seen by Provider: Dec 07, 2019 Time Seen by Provider: 05:11 Date of Admission History of Present Illness 49yo with PMH presented to ED secondary to vomiting, and malaise over the previous 2 wks. Pt went into respiratory failure and was intubated. Pt is now doing better and has been extubated. Pt was also found to have acute DKA and was placed on DKA protocol. I am consulted for ICU management. Allergies and Home Medications Allergies Coded Allergies: No Known Drug Allergies (Unverified , 12/02/19) Home Medications Insulin Glargine,Hum.rec.anlog 100 Unit/1 Ml Insuln.pen, 40 UNIT SQ HS Prescribed by: COLEMAN PACHECO on 12/07/19 1108 Metformin HCl 500 Mg Tablet, 500 MG PO DAILY Prescribed by: COLEMAN PACHECO on 12/07/19 1108 Past Niqffbm-Wueooh-Ifmbjn Hx Past Med/Social Hx: Reviewed Nursing Past Med/Soc Hx Patient Social History Alcohol Use: Denies Use Recreational Drug Use: No Smoking Status: Never a Smoker 2nd Hand Smoke Exposure: No Recent Foreign Travel: No Contact w/Someone Who Travel: No Recent Infectious Disease Expo: No Recent Hopitalizations: No Seasonal Allergies Seasonal Allergies: No Past Medical History Surgeries: No Respiratory: No Cardiac: No Neurological: No Genitourinary: No Gastrointestinal: No Musculoskeletal: No Endocrine: No HEENT: No Cancer: No Psychosocial: No Integumentary: No Blood Disorders: No Family Medical History Reviewed Nursing Family Hx Review of Systems Time Seen by Provider: 12:38 Constitutional: Fever, Chills, Sweats, Weakness, Malaise, Other Eyes: No: Pain, Vision change, Conjunctivae inflammation, Eyelid inflammation, Other, Redness ENT: Nose congestion; No: Ear pain, Ear discharge, Nose pain, Nose discharge, Mouth pain, Mouth swelling, Throat pain, Throat swelling, Other Respiratory: Cough, Dry, Shortness of breath, SOB with excertion, Wheezing Cardiovascular: Palpitations, Paroxysmal Noc. Dyspnea Gastrointestinal: Nausea; No: Vomiting Sepsis Event Evaluation Height, Weight, BMI Height: '" Weight: lbs. oz. kg; 28.00 BMI Method: Exam Exam Vital Signs Date Time Temp Pulse Resp B/P (MAP) Pulse Ox O2 Delivery O2 Flow Rate FiO2 12/07/19 04:00 Room Air 12/07/19 04:00 36.5 12/07/19 04:00 81 12 144/85 (104) 94 Room Air 12/07/19 03:00 75 10 133/92 (106) 95 Room Air 12/07/19 02:00 73 10 122/87 (99) 97 Room Air 12/07/19 01:00 75 11 132/93 (106) 96 Room Air 12/07/19 01:00 75 12/07/19 00:11 36.6 12/07/19 00:00 87 12 127/90 (102) 96 Room Air 12/07/19 00:00 Room Air 12/06/19 23:00 79 10 140/97 (111) 98 Room Air 12/06/19 22:00 87 14 143/91 (108) 98 Room Air 12/06/19 21:00 95 12 133/90 (104) 97 Room Air 12/06/19 20:00 36.7 12/06/19 20:00 Room Air 12/06/19 20:00 88 13 128/91 (103) 96 Room Air 12/06/19 19:00 79 12/06/19 19:00 79 11 135/89 (104) 97 Room Air 12/06/19 18:00 98 12 153/102 (119) 95 Room Air 12/06/19 17:00 90 13 146/113 (124) 97 Room Air 12/06/19 16:00 97 14 152/108 (123) 98 Room Air 12/06/19 16:00 Room Air 12/06/19 15:33 36.8 12/06/19 15:00 89 12 151/105 (120) 98 Room Air 12/06/19 14:00 91 13 152/113 (126) 96 Room Air 12/06/19 13:00 100 12/06/19 13:00 101 23 151/101 (118) 95 Room Air 12/06/19 12:00 Room Air 12/06/19 12:00 98 13 151/110 (124) 98 Room Air 12/06/19 11:00 87 12 176/98 (124) 96 Room Air 12/06/19 10:00 95 13 151/103 (119) 95 Room Air 12/06/19 09:00 95 14 143/100 (114) 93 Room Air 12/06/19 08:00 Room Air 12/06/19 08:00 36.3 12/06/19 08:00 103 14 153/96 (115) 94 Room Air 12/06/19 07:00 110 12/06/19 07:00 97 12 149/98 (115) 94 Room Air 12/06/19 06:00 93 14 145/103 (117) 94 Room Air I & O 12/07/19 07:00 Intake Total 2350 ml Output Total 1400 ml Balance 950 ml Height & Weight Height: '" Weight: lbs. oz. kg; 28.00 BMI Method: General Appearance: No Apparent Distress, WD/WN HEENT: PERRL/EOMI, TMs Normal, Normal ENT Inspection; No Moist Mucous Membranes Neck: Full Range of Motion, Normal Inspection, Non Tender, Supple Respiratory: Lungs Clear, No Respiratory Distress Cardiovascular: Regular Rate, Rhythm, No Murmur Capillary Refill: Less Than 3 Seconds Extremity: Normal Capillary Refill, No Calf Tenderness, No Pedal Edema Neurologic/Psychiatric: Alert, Oriented x3 Skin: Normal Color, Warm/Dry Results Lab Laboratory Tests 12/05/19 09:14 12/06/19 03:23 12/06/19 12:20 12/07/19 03:18 Assessment/Plan Assessment/Plan Acute respiratory failure - resolved -S/p vent -Currently on RA -PH on admission was 6.9 Severe DKA -improving -Off insulin gtt x 2days electrolyte abnormality new onset DM -Continue insulin BAYRON- resolved -IVF currently hep locked DVT ppx: Lovenox Transfer to 4th floor and I will sign off. Please call with any questions AARON LOPEZ DO Dec 07, 2019 05:14
[2019-12-07] MEDS: inSUlin ASPART (NovoLOG) 1 UNIT/0.01 ML (CHARGE PER UNIT) SC SCH ×2 (06:12→11:27)
[2019-12-07] MEDS: PANTOPRAZOLE 40 MG (PROTONIX) VIAL IV SCH (08:17)
[2019-12-07] MEDS ORDERED: KCL 20 MEQ TAB (K-DUR) PO ONE (09:00)
--- NOTE | 2019-12-07 10:03 | Physical Therapy Daily Note ---
PT Daily Note-Current Subjective Patient dons socks independently. Agrees to PT. Mental Status Patient Orientation: Normal For Age Transfers SCALE: Activities may be completed with or without assistive devices. 6-Eqnpqjoqsd-pflcpts completes the activity by him/herself with no assistance from a helper. 5-Set-up or Clean-up Assistance-helper sets up or cleans up; patient completes activity. [place] assists only prior to or following the activity. 4-Supervision or Touching Assistance-helper provides verbal cues and/or touching/steadying and/or contact guard assistance as patient completes activity. Assistance may be provided throughout the activity or intermittently. 3-Partial/Moderate Assistance-helper does LESS THAN HALF the effort. Hollywood lifts, holds or supports trunk or limbs, but provides less than half the effort. 2-Substantial/Maximal Assistance-helper does MORE THAN HALF the effort. [place] lifts or holds trunk or limbs and provides more than half the effort. 6-Fhlpnokfe-oikuhe does ALL the effort. Patient does none of the effort to complete the activity. Or, the assistance of 2 or more helpers is required for the patient to complete the activity. If activity was not attempted, code reason: 7-Patient Refused. 9-Not Applicable-not attempted and the patient did not perform the activity before the current illness, exacerbation or injury. 10-Not Attempted due to Environmental Limitations-(lack of equipment, weather restraints, etc.). 88-Not Attempted due to Medical Conditions or Safety Concerns. Roll Left & Right (QC): 6 Lying to Sitting/Side of Bed(Q: 6 Sit to Stand (QC): 6 Chair/Xpy-lz-Mkrpd Xfer(QC): 6 Gait Training Does the Patient Walk?: Yes Distance: 300' Walk 10 feet (QC): 6 Walk 50 ft with 2 Turns(QC): 6 Walk 150 ft (QC): 6 Gait Assistive Device: None safe and functional with no deviation Assessment Patient is currently independent with all gross motor skills and no longer requires skilled therapy intervention. PT Freight Booker Goals Freight Booker Goals PT Freight Booker Goals Time Frame: Dec 12, 2019 Roll Left & Right (QC): 6 Sit to Lying (QC): 6 Lying-Sitting on Side/Bed(QC): 6 Sit to Stand (QC): 6 Chair/Nnt-ep-Dczfo Xfer(QC): 6 Walk 10 feet (QC): 6 Walk 50ft with 2 Turns (QC): 6 PT Plan Treatment/Plan Treatment Plan: Discontinue PT, goals met Treatment Plan: Education, Functional Activity Ade, Functional Strength, Gait, Safety, Therapeutic Exercise, Transfers Treatment Duration: Dec 12, 2019 Frequency: 6 times per week Estimated Hrs Per Day: .25 hour per day Patient and/or Family Agrees t: Yes Time/GCodes Time In: 851 Time Out: 900 Total Billed Treatment Time: 9 Total Billed Treatment 1 visit FA 9 min JOSE EDUARDO LINN PT Dec 07, 2019 10:03
[2019-12-07] MEDS ORDERED: INSU100I10 SQ (11:08)
[2019-12-07] MEDS ORDERED: METF-397 PO (11:08)
--- NOTE | 2019-12-07 11:17 | Discharge Summary ---
Discharge Summary Hospital Course Was the Problem List Reviewed?: Yes Problems/Dx: (1) Diabetic ketoacidosis Status: Resolved Qualifiers: Qualified Codes: E13.10 - Other specified diabetes mellitus with ketoacidosis without coma (2) Acute renal injury due to hypovolemia Status: Resolved (3) Acute respiratory failure Status: Resolved Qualifiers: Qualified Codes: J96.00 - Acute respiratory failure, unspecified whether with hypoxia or hypercapnia (4) Hypokalemia Status: Resolved (5) Hypomagnesemia Status: Resolved (6) Hypophosphatemia Status: Resolved (7) Ketosis-prone diabetes mellitus Status: Chronic Hospital Course Date of Admission: Dec 02, 2019 at 09:12 Admission Diagnosis : Diabetic ketoacidosis Family Physician/Provider: Date of Discharge: 12/07/19 Discharge Diagnosis: Ketosis-prone diabetes mellitus with diabetic ketoacidosis Hospital Course: Marcello Velazquez is a 49-year-old male with no known past medical history who presented with diabetic ketoacidosis. His course was complicated by respiratory failure and he required intubation for a brief period of time. He was treated with IV fluids, insulin drip, and his ketoacidosis resolved. He was started on subcutaneous insulin injections and was transitioned off of the insulin drip. He was started on insulin injections and metformin on discharge. He should follow-up with his primary care physician. He was discharged in stable condition. Labs and Pending Lab Test: Laboratory Tests 12/06/19 12:20: Sodium Level 144, Potassium Level 3.7, Chloride Level 111H, Carbon Dioxide Level 20L, Anion Gap 13, Blood Urea Nitrogen 16, Creatinine 0.96, Estimat Glomerular Filtration Rate > 60, BUN/Creatinine Ratio 17, Glucose Level 378H, Calcium Level 8.1L 12/06/19 15:32: Glucometer 288H 12/06/19 20:42: Glucometer 259H 12/07/19 03:18: Sodium Level 144, Potassium Level 3.4L, Chloride Level 110H, Carbon Dioxide Level 23, Anion Gap 11, Blood Urea Nitrogen 16, Creatinine 0.88, Estimat Glomerular Filtration Rate > 60, BUN/Creatinine Ratio 18, Glucose Level 218H, Calcium Level 8.2L, White Blood Count 11.6H, Red Blood Count 4.84, Hemoglobin 13.3, Hematocrit 40, Mean Corpuscular Volume 82, Mean Corpuscular Hemoglobin 28, Mean Corpuscular Hemoglobin Concent 34, Red Cell Distribution Width 14.4, Platelet Count 175, Mean Platelet Volume 11.4H, Neutrophils (%) (Auto) 60, Lymphocytes (%) (Auto) 28, Monocytes (%) (Auto) 10, Eosinophils (%) (Auto) 2, Basophils (%) (Auto) 0, Neutrophils # (Auto) 7.0, Lymphocytes # (Auto) 3.3, Monocytes # (Auto) 1.1H, Eosinophils # (Auto) 0.2, Basophils # (Auto) 0.0, Phosphorus Level 2.7, Magnesium Level 2.1 Microbiology 12/03/19 Gram Stain - Final, Complete 12/03/19 Sputum Culture - Final, Complete Usual upper respiratory luh Staphylococcus aureus Strep, Beta Hemolytic Group F 12/02/19 Urine Culture - Final, Complete NO GROWTH 12/02/19 Blood Culture - Final, Complete No growth Home Meds Active Metformin HCl 500 Mg Tablet 500 Mg PO DAILY 30 Days Lantus Solostar (Insulin Glargine,Hum.rec.anlog) 100 Unit/1 Ml Insuln.pen 40 Unit SQ HS 30 Days Assessment/Pt Instructions Take medications as prescribed. Begin taking insulin and metformin for your diabetes. Follow-up with your primary care physician at your work. Discharge Planning: <30 minutes discharge planning Discharge Instructions Discharge Diet: ADA Diet Activity as Tolerated: Yes Discharge Physical Examination Vital Signs Vital Signs Date Time Temp Pulse Resp B/P (MAP) Pulse Ox O2 Delivery O2 Flow Rate FiO2 12/07/19 08:00 Room Air 12/07/19 08:00 103 11 152/102 (119) 97 12/07/19 07:13 36.2 12/04/19 16:00 21 12/04/19 12:00 24.00 General Appearance: No Apparent Distress, WD/WN Respiratory: Lungs Clear, Normal Breath Sounds, No Respiratory Distress Cardiovascular: Regular Rate, Rhythm, No Edema, No Murmur Gastrointestinal: Normal Bowel Sounds, Non Tender, Soft Extremity: Normal Inspection, Non Tender, No Pedal Edema Skin: Normal Color, Warm/Dry Neurologic/Psychiatric: Alert, Oriented x3, No Motor/Sensory Deficits, Normal Mood/Affect Allergies: Coded Allergies: No Known Drug Allergies (Unverified , 12/02/19) Discharge Summary Date of Admission Dec 02, 2019 at 09:12 Date of Discharge Discharge Date: Dec 07, 2019 Discharge Time: 11:17 Admission Diagnosis DKA Discharge Diagnosis (1) Diabetic ketoacidosis Status: Resolved Qualifiers: Qualified Codes: E13.10 - Other specified diabetes mellitus with ketoacidos is without coma (2) Acute renal injury due to hypovolemia Status: Resolved (3) Acute respiratory failure Status: Resolved Qualifiers: Qualified Codes: J96.00 - Acute respiratory failure, unspecified whether with hypoxia or hypercapnia (4) Hypokalemia Status: Resolved (5) Hypomagnesemia Status: Resolved (6) Hypophosphatemia Status: Resolved (7) Ketosis-prone diabetes mellitus Status: Chronic COLEMAN PACHECO MD Dec 07, 2019 11:16
--- NOTE | 2019-12-07 12:06 | Diagnostic Imaging Report ---
INDICATION: Follow up dyspnea. EXAMINATION: Chest 12/07/2019. Comparison made to 12/06/2019. FINDINGS: The heart is slightly prominent. Pulmonary vasculature is stable. Lungs unchanged with no new infiltrates, effusions or pneumothorax. IMPRESSION: Stable chest. Dictated by: Dictated on workstation # [id number]
--- NOTE | 2019-12-07 12:41 | NUR ---
IRF Evaluation Order received to evaluate patient for the ARU. Chart review complete and it appears patient is ambulating 300ft (no AD) and transferring with independence; therefore, patient does not require intensive therapies. Thank you for this referral.
--- NOTE | 2019-12-07 13:42 | Occ Therapy Progress Note ---
Therapy Progress Note Pt pleasantly declines OT today, stating he is hoping to be able to discharge this afternoon. OT will attempt again next available date, if pt is still admitted. 1, visit 1323 MELISSA LUZ OT Dec 07, 2019 13:42
--- NOTE | 2019-12-07 14:43 | NUR ---
CM/SS: Visited with pt as plan for discharge - utilizing the language line Plan: Pt will be discharged to home today Summary: The language line is utilized to communicate with the pt. He reports that he does see the physician at his work and that he has health insurance. He does not have the card as it is in his wallet. He does report having a and kids. Medications are called in to [facility] so that he can pick them up. Pt through the language line is able to understand that. SCOTT Junior calls [facility], and see if the the can have someone meet with the pt to provide some diabetic education. They can meet with pt today. They need the pt to arrive before 4pm. We are unable to reach his via phone and so a taxi is arranged, to get pt to his house and then he can drive his car to the [facility] for diabetic education. Pt verbalizes understanding.
[2019-12-08] MEDS ORDERED: PANTOPRAZOLE 40 MG (PROTONIX) TAB PO SCH (09:00)
== END 2019-12-07 14:20 | disposition home or self-care (01) | DRG 208 ==
LOC: ER 07:20 → ICU 09:12
PROVIDERS: ADMIT Family Medicine; ATTEND Family Medicine
PROC: 5A1945Z Respiratory Ventilation, 24-96 Consecutive Hours (ICD-10-PCS; principal; 2019-12-02)
PROC: 0BH17EZ Insertion of Endotracheal Airway into Trachea, Via Natural or Artificial Opening (ICD-10-PCS; 2019-12-02)
DX: J96.00 Acute respiratory failure, unspecified whether with hypoxia or hypercapnia (principal); E11.10 Type 2 diabetes mellitus with ketoacidosis without coma; N17.9 Acute kidney failure, unspecified; E87.2 Acidosis; E86.1 Hypovolemia; E87.6 Hypokalemia; E83.42 Hypomagnesemia; E83.39 Other disorders of phosphorus metabolism; E87.8 Other disorders of electrolyte and fluid balance, not elsewhere classified
CPT/HCPCS: 36415; 36600; 51702; 71045; 80048; 80053; 80306; 80320; 81000; 82010; 82140; 82805; 82962; 83036; 83605; 83735; 84100; 84132; 84478; 85007; 85025; 85027; 85610; 85730; 87040; 87070; 87077; 87081; 87088; 87186; 87205; 87804; 94002; 94003; 94799; 96361; 96374; 96375

== ENCOUNTER 2021-07-25 18:30 | Inpatient (IN) | payer BC, OTHER ==
[~2021-07-25] VITALS: Ht 182.8 cm; Wt 83.0 kg
[~2021-07-25 18:30] MED LIST: INSU100I10 SQ; METF-397 PO
[2021-07-25] MEDS ORDERED: NS IV 1000 ML 1,000 ML IV SCH ×3 (19:30→23:30)
[2021-07-25] MEDS ORDERED: ONDANSETRON 4 MG/2 ML (SDV) Z0FRAN IVP ONE (19:30)
[2021-07-25 19:54] LABS: BASOPHILS % (AUTO) 0 % (0-10); EOSINOPHILS % (AUTO) 0 % (0-10); HEMATOCRIT 42 % (40-54); LYMPHOCYTES # (AUTO) 1.8 10^3/uL (1.0-4.0); LYMPHOCYTES % (AUTO) 14 % (12-44); MEAN CORPUSCULAR HEMOGLOBIN 28 pg (25-34); MEAN CORPUSCULAR HGB CONC 33 g/dL (32-36); MEAN CORPUSCULAR VOLUME 85 fL (80-99); MEAN PLATELET VOLUME 10.8 fL (9.0-12.2); MONOCYTES # (AUTO) 0.9 10^3/uL (0.0-1.0); MONOCYTES % (AUTO) 7 % (0-12); NEUTROPHILS # (AUTO) 9.5 10^3/uL (1.8-7.8); NEUTROPHILS % (AUTO) 77 % (42-75); PLATELET COUNT 378 10^3/uL (130-400); WHITE BLOOD COUNT 12.4 10^3/uL (4.3-11.0)
[2021-07-25 19:59] LABS: ABG BASE EXCESS -25.2 MMOL/L (-2.5-2.5); ABG OXYGEN SATURATION 98 % (94-100); ABG PO2 125 MMHG (79-93)
[2021-07-25 20:00] LABS: ABG PCO2 8 MMHG (35-45); ABG PH 7.18 (7.37-7.43); ABG TCO2 3.1 MMOL/L (21.0-31.0)
[2021-07-25 20:01] LABS: ALLENS TEST POS; INSPIRED O2 ROOM AIR; PATIENT TEMP 36.1; VENTILATOR NO
[2021-07-25] MEDS ORDERED: SODIUM BICARB 8.4% 50 MEQ/50 ML (ABBOTT) SYR ONE (20:08)
[2021-07-25] MEDS ORDERED: inSUlin (REGULAR) HUMAN 1 UNIT/0.01 ML (CHARGE PER UNIT) IV ONE (20:15)
[2021-07-25] MEDS ORDERED: SODIUM BICARB 8.4% 50 MEQ/50 ML (ABBOTT) SYR IV ONE (20:15)
[2021-07-25 20:23] LABS: BILIRUBIN,URINE NEGATIVE (NEGATIVE); CLARITY,URINE CLEAR; COLOR,URINE YELLOW; GLUCOSE, URINE (UA) 2+ (NEGATIVE); KETONES,URINE 2+ (NEGATIVE); LEUKOCYTE ESTERASE ,URINE NEGATIVE (NEGATIVE); NITRITE,URINE NEGATIVE (NEGATIVE); PH,URINE 5.5 (5-9); PROTEIN,URINE TRACE (NEGATIVE)
[2021-07-25 20:29] LABS: BACTERIA,URINE NEGATIVE /HPF; WBC,URINE 0-2 /HPF
--- NOTE | 2021-07-25 20:30 | ED General ---
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 Records Exam Limitations: Language Barrier History of Present Illness Date Seen by Provider: Jul 25, 2021 Time Seen by Provider: 19:23 Initial Comments PT ARRIVES VIA POV FROM HOME HAS NOT BEEN FEELING WELL FOR ABOUT 2 WEEKS C/O GENERALIZED WEAKNESS, NAUSEA AND VOMITING PT IS DIABETIC, AND BLOOD SUGAR HAS BEEN > 300--IS UNCLEAR HOW LONG HIS BLOOD SUGAR HAS BEEN ELEVATED OR HOW OFTEN HE CHECKS BLOOD GLUCOSE PT IS ON METFORMIN--IS UNCLEAR IF HE HAS MISSED DOSES OF MEDICATIONS PT ALSO IS ON MEDICATION FOR HTN PT HAS NOT SOUGHT CARE UNTIL TODAY FOR THIS PROBLEM PT WAS ADMITTED HERE IN NOVEMBER OF 2019--FIRST VISIT AND ONLY PRIOR VISIT HERE--AND WAS DX WITH DIABETES AND WAS FOUND TO BE IN DKA, AND REQUIRED INTUBATION DUE TO SEVERE ACIDOSIS. IS UNCLEAR WHEN HE WAS LAST SEEN BY , OR IF HIS MEDICATIONS HAVE BEEN CHANGED DOES STATE HE HAS BEEN TO [facility] PT DOES STATE HE HAS HAD BOTH COVID-19 VACCINES PCP: [facility] Allergies and Home Medications Allergies Coded Allergies: No Known Drug Allergies (Unverified , 12/02/19) Patient Home Medication List Home Medication List Reviewed: Yes Insulin Glargine,Hum.rec.anlog (Lantus Solostar) 100 Unit/1 Ml Insuln.pen, 40 UNIT SQ HS Prescribed by: COLEMAN PACHECO on 12/07/19 1108 Metformin HCl (Metformin HCl) 500 Mg Tablet, 500 MG PO DAILY Prescribed by: COLEMAN PACHECO on 12/07/19 1108 Review of Systems Review of Systems Constitutional: diaphoresis, malaise, weakness, other (VERY LIMTED) Gastrointestinal: nausea, vomiting Past Dzrmgme-Zciqjm-Tdhnep Hx Patient Social History Tobacco Use?: No Substance use?: No Alcohol Use?: No Immunizations Up To Date COVID19 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, 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 HAS HAD 2 SHOTS Seasonal Allergies Seasonal Allergies: No Past Medical History Surgery/Hospitalization HX: DM HTN Surgeries: No Respiratory: No (INTUBATED 11/2019 WITH DKA) Cardiac: Yes Hypertension Neurological: No Genitourinary: No Gastrointestinal: No Musculoskeletal: No Endocrine: Yes (DM DX 11/2019 AND PT WAS IN DKA AND REQUIRED INTUBATION D/T ACIDOSIS) Diabetes, Non-Insulin dep HEENT: No Cancer: No Psychosocial: No Integumentary: No Blood Disorders: No Physical Exam Vital Signs Vital Signs - First Documented 07/25/21 19:21 Temp 36.1 Pulse 103 Resp 22 B/P (MAP) 119/67 (84) Pulse Ox 100 O2 Delivery Room Air Capillary Refill : Height, Weight, BMI Height: '" Weight: lbs. oz. kg; 28.00 BMI Method: General Appearance: Thin, Other (MILDLY DIAPHORETIC, SLIGHT HYPERVENTILATION. NO KUSSMAUL'S BREATHING; SLIGHTLY LETHARGIC) HEENT: Other (ORAL MUCOSA SLIGHTLY DRY) Neck: Normal Inspection Respiratory: Normal Breath Sounds, No Respiratory Distress, Other (SLIGHT HYPERVENTILATION) Cardiovascular: Regular Rate, Rhythm, No Murmur Gastrointestinal: Non Tender, Soft Back: No CVA Tenderness Extremity: Normal Capillary Refill, Normal Inspection, No Pedal Edema Neurologic/Psychiatric: Alert, No Motor/Sensory Deficits Skin: Normal Color (PT IS ), Diaphoresis, Other (WARM) Focused Exam Lactate Level 07/25/21 19:40: Lactic Acid Level 1.21 Lactic Acid Level Laboratory Tests Test 07/25/21 19:40 Lactic Acid Level 1.21 MMOL/L (0.50-2.00) Procedures/Interventions Date of ETT Placement: Dec 02, 2019 Time of ETT Placement: 827 Progress/Results/Core Measures Suspected Sepsis SIRS Temperature: Pulse: Respiratory Rate: Laboratory Tests 07/25/21 19:40: White Blood Count 12.4H Blood Pressure / Mean: 07/25/21 19:40: Lactic Acid Level 1.21 Laboratory Tests 07/25/21 19:40: Platelet Count 378, Total Bilirubin 0.9 Results/Orders Lab Results Laboratory Tests Test 07/25/21 19:35 07/25/21 19:39 07/25/21 19:40 07/25/21 19:50 Range/Units Glucometer 441 *H 70-110 MG/DL SARS-CoV-2 RNA (RT-PCR) Not Detected Not Detecte White Blood Count 12.4 H 4.3-11.0 10^3/uL Red Blood Count 4.93 4.30-5.52 10^6/uL Hemoglobin 14.0 13.3-17.7 g/dL Hematocrit 42 40-54 % Mean Corpuscular Volume 85 80-99 fL Mean Corpuscular Hemoglobin 28 25-34 pg Mean Corpuscular Hemoglobin Concent 33 32-36 g/dL Red Cell Distribution Width 13.3 10.0-14.5 % Platelet Count 378 130-400 10^3/uL Mean Platelet Volume 10.8 9.0-12.2 fL Immature Granulocyte % (Auto) 2 % Neutrophils (%) (Auto) 77 H 42-75 % Lymphocytes (%) (Auto) 14 12-44 % Monocytes (%) (Auto) 7 0-12 % Eosinophils (%) (Auto) 0 0-10 % Basophils (%) (Auto) 0 0-10 % Neutrophils # (Auto) 9.5 H 1.8-7.8 10^3/uL Lymphocytes # (Auto) 1.8 1.0-4.0 10^3/uL Monocytes # (Auto) 0.9 0.0-1.0 10^3/uL Eosinophils # (Auto) 0.0 0.0-0.3 10^3/uL Basophils # (Auto) 0.0 0.0-0.1 10^3/uL Immature Granulocyte # (Auto) 0.2 H 0.0-0.1 10^3/uL Sodium Level 130 L 135-145 MMOL/L Potassium Level 4.1 3.6-5.0 MMOL/L Chloride Level 99 98-107 MMOL/L Carbon Dioxide Level 5 *L 21-32 MMOL/L Anion Gap 26 H 5-14 MMOL/L Blood Urea Nitrogen 18 7-18 MG/DL Creatinine 1.53 H 0.60-1.30 MG/DL Estimat Glomerular Filtration Rate 48 BUN/Creatinine Ratio 12 Glucose Level 491 *H 70-105 MG/DL Lactic Acid Level 1.21 0.50-2.00 MMOL/L Calcium Level 9.7 8.5-10.1 MG/DL Corrected Calcium 9.7 8.5-10.1 MG/DL Magnesium Level 2.0 1.6-2.4 MG/DL Total Bilirubin 0.9 0.1-1.0 MG/DL Aspartate Amino Transf (AST/SGOT) 11 5-34 U/L Alanine Aminotransferase (ALT/SGPT) 15 0-55 U/L Alkaline Phosphatase 179 H 40-136 U/L Total Protein 7.8 6.4-8.2 GM/DL Albumin 4.0 3.2-4.5 GM/DL Amylase Level 40 25-125 U/L Lipase 42 8-78 U/L Beta-Hydroxybutyrate (Chem panel) 10.25 H 0.00-0.27 MMOL/L Procalcitonin 0.09 <0.10 NG/ML Serum Alcohol < 10 <10 MG/DL Blood Gas Puncture Site RGHT RAD Blood Gas Patient Temperature 36.1 Arterial Blood pH 7.18 *L 7.37-7.43 Arterial Blood Partial Pressure CO2 8 *L 35-45 MMHG Arterial Blood Partial Pressure O2 125 H 79-93 MMHG Arterial Blood HCO3 3 *L 23-27 MMOL/L Arterial Blood Total CO2 3.1 *L 21.0-31.0 MMOL/L Arterial Blood Oxygen Saturation 98 94-100 % Arterial Blood Base Excess -25.2 L -2.5-2.5 MMOL/L Scotty Test POS Blood Gas Ventilator Setting NO Blood Gas Inspired Oxygen ROOM AIR Test 07/25/21 20:18 Range/Units Urine Color YELLOW Urine Clarity CLEAR Urine pH 5.5 5-9 Urine Specific [place] >=1.030 1.016-1.022 Urine Protein TRACE H NEGATIVE Urine Glucose (UA) 2+ H NEGATIVE Urine Ketones 2+ H NEGATIVE Urine Nitrite NEGATIVE NEGATIVE Urine Bilirubin NEGATIVE NEGATIVE Urine Urobilinogen 0.2 < = 1.0 MG/DL Urine Leukocyte Esterase NEGATIVE NEGATIVE Urine RBC (Auto) 1+ H NEGATIVE Urine RBC NONE /HPF Urine WBC 0-2 /HPF Urine Squamous Epithelial Cells NONE /HPF Urine Renal Epithelial Cells NONE /HPF Urine Crystals NONE /LPF Urine Bacteria NEGATIVE /HPF Urine Casts NONE /LPF Urine Mucus NEGATIVE /LPF Urine Culture Indicated NO Urine Opiates Screen NEGATIVE NEGATIVE Urine Oxycodone Screen NEGATIVE NEGATIVE Urine Methadone Screen NEGATIVE NEGATIVE Urine Propoxyphene Screen NEGATIVE NEGATIVE Urine Barbiturates Screen NEGATIVE NEGATIVE Ur Tricyclic Antidepressants Screen NEGATIVE NEGATIVE Urine Phencyclidine Screen NEGATIVE NEGATIVE Urine Amphetamines Screen NEGATIVE NEGATIVE Urine Methamphetamines Screen NEGATIVE NEGATIVE Urine Benzodiazepines Screen NEGATIVE NEGATIVE Urine Cocaine Screen NEGATIVE NEGATIVE Urine Cannabinoids Screen NEGATIVE NEGATIVE My Orders Orders - GERALDINE DAS DO Accucheck Stat ONCE (07/25/21 19:23) Ekg Tracing (07/25/21 19:23) Monitor-Rhythm Ecg Trace Only (07/25/21 19:23) Alcohol (07/25/21 19:23) Amylase (07/25/21 19:23) Arterial Blood Gas (07/25/21 19:23) Cbc With Automated Diff (07/25/21:23) Comprehensive Metabolic Panel (07/25/21:23) Drug Screen Stat (Urine) (07/25/21 19:23) Lactic Acid Analyzer (07/25/21 19:23) Lipase (07/25/21:23) Magnesium (07/25/21:23) Ua Culture If Indicated (07/25/21 19:23) Ed Iv/Invasive Line Start (07/25/21 19:23) Ns Iv 1000 Ml (Sodium Chloride 0.9%) (07/25/21 19:30) Ondansetron Injection (Zofran Injectio (07/25/21 19:30) Procalcitonin (Pct) (07/25/21 19:37) Blood Culture (07/25/21 19:37) Chest 1 View, Ap/Pa Only (07/25/21 19:37) Covid 19 Inhouse Test (07/25/21 19:37) Sodium Bicarbonate 8.4% Syr (Sodium Bica (07/25/21 20:15) Insulin (Regular) Human (Novolin R (Per (07/25/21 20:15) Ed Iv/Invasive Line Start (07/25/21 20:04) Ns Iv 1000 Ml (Sodium Chloride 0.9%) (07/25/21 20:15) Sodium Bicarbonate 8.4% Syr (Sodium Bica (07/25/21 20:08) Medications Given in ED Current Medications Medications Dose Ordered Sig/Roberth Route Start Time Stop Time Status Last Admin Dose Admin Insulin Human Regular 15 unit ONCE ONCE IV 07/25/21 20:15 07/25/21 20:16 DC 07/25/21 20:11 15 UNIT Ondansetron HCl 4 mg ONCE ONCE IVP 07/25/21 19:30 07/25/21 19:31 DC 07/25/21 19:54 4 MG Sodium Bicarbonate 100 meq ONCE ONCE IV 07/25/21 20:15 07/25/21 20:16 DC 07/25/21 20:12 100 MEQ Vital Signs/I&O 07/25/21 19:21 Temp 36.1 Pulse 103 Resp 22 B/P (MAP) 119/67 (84) Pulse Ox 100 O2 Delivery Room Air Capillary Refill : Point of Care Testing Finger Stick Blood Glucose: 441 Blood Glucose Action Taken: DR. DAS NOTIFIED. Progress Note : Progress Note GIVEN IV FLUIDS AND ZOFRAN GIVEN BICARB AND INSULIN NO DETERIORATION IN PT'S CONDITION DURING ER STAY NO VOMITING NO HYPOXIA NO HYPOTENSION OR TACHYCARDIA ECG Initial ECG Impression Date: Jul 25, 2021 Initial ECG Impression Time: 19:59 Initial ECG Rate: 85 Initial ECG Rhythm: Normal Sinus Diagnostic Imaging Comments CXR--PER RADIOLOGIST REPORT AT 2055 FINDINGS: Normal heart size and pulmonary vascularity. No dense consolidation, pleural effusion or pneumothorax. No acute osseous findings. No significant change. IMPRESSION: No acute cardiopulmonary findings. Reviewed: Reviewed by Md Departure Communication (Admissions) 2036--SPOKE WITH DR. MOJICA, HOSPITALIST FOR [facility], ACCEPTS PT FOR ADMIT. 2037--REPORT TO E-ICU PHYSICIAN. NO ADDITIONAL RECOMMENDATIONS AT THIS TIME Impression Primary Impression: DKA (diabetic ketoacidosis) Additional Impressions: NIDDM Acute renal insufficiency Hyponatremia Disposition: ADMITTED INPATIENT Condition: Stable Admissions Decision to Admit Reason: Admit from ER (General) Decision to Admit/Date: Jul 25, 2021 Time/Decision to Admit Time: 20:40 Departure-Patient Inst. Referrals: [facility] (PCP) Primary Care Physician KING MÁRQUEZ (Family) Primary Care Physician GERALDINE DAS DO Jul 25, 2021 20:29
[2021-07-25 20:33] LABS: ALANINE AMINOTRANSFERASE 15 U/L (0-55); ALKALINE PHOSPHATASE 179 U/L (40-136); AMYLASE 40 U/L (25-125); BILIRUBIN,TOTAL 0.9 MG/DL (0.1-1.0); BUN/CREATININE RATIO 12; CALCIUM 9.7 MG/DL (8.5-10.1); CHLORIDE 99 MMOL/L (98-107); CREATININE SERUM 1.53 MG/DL (0.60-1.30); GFR ESTIMATED 48; LIPASE 42 U/L (8-78); POTASSIUM 4.1 MMOL/L (3.6-5.0); SODIUM 130 MMOL/L (135-145); TOTAL PROTEIN 7.8 GM/DL (6.4-8.2)
[2021-07-25 20:35] LABS: CARBON DIOXIDE 5 MMOL/L (21-32); GLUCOSE 491 MG/DL (70-105)
[2021-07-25 20:37] LABS: AMPHETAMINE SCREEN, URINE NEGATIVE (NEGATIVE); BARBITURATE SCREEN URINE NEGATIVE (NEGATIVE); BENZODIAZEPINES SCREEN URINE NEGATIVE (NEGATIVE); CANNABINOID SCREEN, URINE NEGATIVE (NEGATIVE); COCAINE SCREEN URINE NEGATIVE (NEGATIVE); METHADONE STAT NEGATIVE (NEGATIVE); METHAMPHETAMINE SCREEN URINE S NEGATIVE (NEGATIVE); OPIATE SCREEN URINE NEGATIVE (NEGATIVE); OXYCODONE STAT NEGATIVE (NEGATIVE); PROPOXYPHENE STAT NEGATIVE (NEGATIVE); TRICYCLIC ANTIDEPRESSANTS SCRE NEGATIVE (NEGATIVE)
--- NOTE | 2021-07-25 20:54 | Diagnostic Imaging Report ---
EXAM: CHEST 1 VIEW, AP/PA ONLY INDICATION: Nausea and vomiting. COMPARISON: 12/07/2019. FINDINGS: Normal heart size and pulmonary vascularity. No dense consolidation, pleural effusion or pneumothorax. No acute osseous findings. No significant change. IMPRESSION: No acute cardiopulmonary findings. Dictated by: Dictated on workstation # [id number]
--- NOTE | 2021-07-25 21:34 | Tele-ICU Consult ---
History of Present Illness History of Present Illness Date Seen by Provider: Jul 25, 2021 Time Seen by Provider: 21:34 History of Present Illness 50 yo M came to ED for elevated glu on home test, in ED glu 441, HCO3 5, 7.18/8/125, Cr 1.53, given IV NaHCO3, started on DKA protocol On Metformin at home, also has HTN, UDS neg, CXR clear Had recent admission 11/27 also for severe DKA, intubated at that time, Repeat ABG 7./ Allergies and Home Medications Allergies Coded Allergies: No Known Drug Allergies (Unverified , 12/02/19) Home Medications Insulin Glargine,Hum.rec.anlog 100 Unit/1 Ml Insuln.pen, 40 UNIT SQ HS Prescribed by: COLEMAN PACHECO on 12/07/19 1108 Metformin HCl 500 Mg Tablet, 500 MG PO DAILY Prescribed by: OCLEMAN PACHECO on 12/07/19 1108 Past Medical/Social/Family Hx Patient Social History Tobacco Use?: No Substance use?: No Alcohol Use?: No Current Status Communicates: Verbally Primary Language: English Preferred Spoken Language: English Is interpretation needed?: Yes Review of Systems Constitutional: see HPI Sepsis Event Evaluation Height, Weight, BMI Height: '" Weight: lbs. oz. kg; 29.00 BMI Method: Exam Exam Patient acknowledged, consented, and participated in this virtual visit which was conducted using real time audio/video Vital Signs Date Time Temp Pulse Resp B/P (MAP) Pulse Ox O2 Delivery O2 Flow Rate FiO2 07/25/21 19:21 36.1 103 22 119/67 (84) 100 Room Air Height & Weight Height: '" Weight: lbs. oz. kg; 29.00 BMI Method: General Appearance: No Apparent Distress, Thin, Other (MILDLY DIAPHORETIC, SLIGHT HYPERVENTILATION. NO KUSSMAUL'S BREATHING; SLIGHTLY LETHARGIC) HEENT: Other (ORAL MUCOSA SLIGHTLY DRY) Neck: Normal Inspection Respiratory: Normal Breath Sounds, No Respiratory Distress, Other (SLIGHT HYPERVENTILATION) Cardiovascular: Regular Rate, Rhythm, No Murmur Capillary Refill: Less Than 3 Seconds Gastrointestinal: normal bowel sounds, non tender Extremity: Normal Capillary Refill, Normal Inspection, No Pedal Edema Neurologic/Psychiatric: Alert, No Motor/Sensory Deficits Skin: Normal Color (PT IS ), Diaphoresis, Other (WARM) Results Lab Laboratory Tests 07/25/21 19:40 Assessment/Plan Assessment/Plan Severe DKA, continue on DKA protocol, will follow Critical Care: Critically Ill Patient GAVIN MATUTE MD Jul 25, 2021 21:34
[2021-07-25] MEDS ORDERED: D5 1/2 NS 1000 ML IV SOLUTION 1,000 ML IV ONE (22:40)
[2021-07-25] MEDS ORDERED: POTASSIUM CL 10MEQ/50ML IVPB 50 ML IV ONE (22:40)
[2021-07-25] MEDS: POTASSIUM CL 10MEQ/50ML IVPB 50 ML IV SCH (22:41)
[2021-07-25] MEDS: D5 1/2 NS 1000 ML IV SOLUTION 1,000 ML IV SCH (22:41)
[2021-07-25 22:51] LABS: ABG OXYGEN SATURATION 99 % (94-100); ABG PO2 151 MMHG (79-93)
[2021-07-25 22:54] LABS: ABG PCO2 15 MMHG (35-45); ABG PH 7.21 (7.37-7.43)
[2021-07-25 22:55] LABS: ABG TCO2 6.2 MMOL/L (21.0-31.0); ALLENS TEST YES-POS; INSPIRED O2 ROOM AIR; VENTILATOR NO
[2021-07-25 22:56] LABS: PATIENT TEMP 36.8
[2021-07-25 23:21] LABS: POTASSIUM 3.5 MMOL/L (3.6-5.0)
[2021-07-25 23:22] LABS: CALCIUM 8.5 MG/DL (8.5-10.1)
[2021-07-25] MEDS ORDERED: ONDANSETRON 4 MG/2 ML (SDV) Z0FRAN IV PRN (23:30)
[2021-07-25] MEDS: 1/2 NS IV SOLUTION 1,000 ML IV SCH (23:59)
[2021-07-26] MEDS: POTASSIUM CL 10MEQ/50ML IVPB 50 ML IV SCH ×9 (00:32→20:45)
[2021-07-26 01:15] LABS: POTASSIUM 3.2 MMOL/L (3.6-5.0)
[2021-07-26 01:16] LABS: CALCIUM 7.6 MG/DL (8.5-10.1)
[2021-07-26 01:21] LABS: CREATININE SERUM 1.03 MG/DL (0.60-1.30)
[2021-07-26] MEDS: D5 1/2 NS 1000 ML IV SOLUTION 1,000 ML IV SCH ×3 (03:12→20:45)
[2021-07-26] MEDS: 1/2 NS IV SOLUTION 1,000 ML IV SCH ×6 (03:13→23:10)
[2021-07-26 05:16] LABS: BASOPHILS % (AUTO) 1 % (0-10); EOSINOPHILS # (AUTO) 0.1 10^3/uL (0.0-0.3); EOSINOPHILS % (AUTO) 1 % (0-10); HEMATOCRIT 34 % (40-54); HEMOGLOBIN 11.5 g/dL (13.3-17.7); LYMPHOCYTES # (AUTO) 2.4 10^3/uL (1.0-4.0); LYMPHOCYTES % (AUTO) 30 % (12-44); MEAN CORPUSCULAR HEMOGLOBIN 29 pg (25-34); MEAN CORPUSCULAR HGB CONC 34 g/dL (32-36); MEAN CORPUSCULAR VOLUME 83 fL (80-99); MEAN PLATELET VOLUME 10.8 fL (9.0-12.2); MONOCYTES # (AUTO) 0.9 10^3/uL (0.0-1.0); MONOCYTES % (AUTO) 11 % (0-12); NEUTROPHILS # (AUTO) 4.7 10^3/uL (1.8-7.8); NEUTROPHILS % (AUTO) 57 % (42-75); PLATELET COUNT 279 10^3/uL (130-400); WHITE BLOOD COUNT 8.2 10^3/uL (4.3-11.0)
[2021-07-26 05:30] LABS: POTASSIUM 2.9 MMOL/L (3.6-5.0)
[2021-07-26 05:31] LABS: CALCIUM 7.2 MG/DL (8.5-10.1)
[2021-07-26 05:33] LABS: TOTAL PROTEIN 5.3 GM/DL (6.4-8.2)
[2021-07-26 05:34] LABS: BILIRUBIN,TOTAL 0.7 MG/DL (0.1-1.0)
[2021-07-26 05:36] LABS: CREATININE SERUM 0.83 MG/DL (0.60-1.30); PHOSPHORUS 1.1 MG/DL (2.3-4.7)
[2021-07-26 05:39] LABS: MAGNESIUM 1.4 MG/DL (1.6-2.4)
[2021-07-26] MEDS: KCL 20 MEQ TAB (K-DUR) PO SCH (05:39)
[2021-07-26] MEDS: MAGNESIUM 1 GM/100 ML IVPB 100 ML IV SCH ×3 (06:06→09:20)
[2021-07-26] MEDS ORDERED: FLU QUADRIvalent (3YOA+) 60 mcg/0.5 ml 2021-22(AFLURIA) IM ONE (07:15)
[2021-07-26] MEDS ORDERED: POTASSIUM PHOSPHATE INJ 30 MM in NS (IVPB) 250 ML IV ONE (08:00)
--- NOTE | 2021-07-26 09:54 | Tele-ICU Progress Note ---
Subjective Date Seen by a Provider: Jul 26, 2021 Time Seen by a Provider: 09:52 Sepsis Event Evaluation Height, Weight, BMI Height: '" Weight: lbs. oz. kg; 24.00 BMI Method: Focused Exam Lactate Level 07/25/21 19:40: Lactic Acid Level 1.21 Exam Exam Patient acknowledged, consented, and participated in this virtual visit which was conducted using real time audio/video Vital Signs Date Time Temp Pulse Resp B/P (MAP) Pulse Ox O2 Delivery O2 Flow Rate FiO2 07/26/21 09:00 86 17 100/58 96 Room Air 07/26/21 08:00 100 Room Air 07/26/21 08:00 77 10 97/60 96 Room Air 07/26/21 07:46 36.4 07/26/21 07:00 78 07/26/21 07:00 80 10 100/56 96 Room Air 07/26/21 06:00 82 10 95/58 97 Room Air 07/26/21 05:00 84 11 92/51 96 Room Air 07/26/21 04:00 99 Room Air 07/26/21 04:00 78 8 93/57 97 Room Air 07/26/21 03:15 36.4 07/26/21 03:00 75 10 93/48 96 Room Air 07/26/21 02:00 81 9 92/57 98 Room Air 07/26/21 01:15 77 11 90/49 97 Room Air 07/26/21 01:00 77 07/26/21 00:00 76 12 92/52 98 Room Air 07/26/21 00:00 99 Room Air 07/25/21 23:45 75 14 100/51 100 07/25/21 23:30 75 12 96/55 99 Room Air 07/25/21 23:15 74 07/25/21 23:15 74 16 107/54 100 Room Air 07/25/21 23:00 78 13 98/48 100 Room Air 07/25/21 22:45 78 13 100/49 100 Room Air 07/25/21 22:38 36.8 84 16 91/52 100 Room Air 07/25/21 22:30 100 Room Air 07/25/21 22:19 36.1 80 18 93/49 99 Room Air 07/25/21 19:21 36.1 103 22 119/67 (84) 100 Room Air I & O 07/26/21 07:00 Intake Total 5250 ml Output Total 1000 ml Balance 4250 ml Height & Weight Height: '" Weight: lbs. oz. kg; 24.00 BMI Method: General Appearance: Thin, Other (MILDLY DIAPHORETIC, SLIGHT HYPERVENTILATION. NO KUSSMAUL'S BREATHING; SLIGHTLY LETHARGIC) HEENT: Other (ORAL MUCOSA SLIGHTLY DRY) Neck: Normal Inspection Respiratory: Normal Breath Sounds, No Respiratory Distress, Other (SLIGHT HYPERVENTILATION) Cardiovascular: Regular Rate, Rhythm, No Murmur Capillary Refill: Less Than 3 Seconds Gastrointestinal: normal bowel sounds, non tender Extremity: Normal Capillary Refill, Normal Inspection, No Pedal Edema Neurologic/Psychiatric: Alert, No Motor/Sensory Deficits Skin: Normal Color (PT IS ), Diaphoresis, Other (WARM) Results Lab Laboratory Tests 07/25/21 19:40 07/25/21 22:43 07/26/21 00:57 07/26/21 04:11 Assessment/Plan Assessment/Plan (Tele-ICU Physician , Progress Note ) Available chart/ vitals / labs / Images reviewed Video assessment done using teleICU camera, rest of exam as per RN Discussed with RN , EXAM PER RN Events overnight : Afebrile FiO2 - ra I/O = pos 2 L Drips: insulin Pressors: , hemodynamically stable Consultants: Hospital course: 07/25 - DKA A/P DKA -Unclear precipitant, No suspicious for new infection_ *Insulin drip continue to monitor for resolution of acidosis, AG and electrolytes. Continue hydration. *Tx Gastroparesis BAYRON - dehydration - cont IVF - follow closely - improved Leukocytosis - reactive, chest x-ray was normal , UA unremarkable >off ABX , follow Lines : (Central Line Necessity Reviewed) Mccarty: OG: Nutrition: Analgesia: Anxiety/ delirium VTE Prophylaxis: lovenox Stress Ulcer Prophylaxis: po intake Plans in collaboration with bedside consultants and IM MDs. Discussed with RN to reach out if any questions or concerns A total of 31 minutes of critical care time was devoted to this patient today, required to treat and/or prevent further deterioration of critical care condition ( as above) . BRIGETTE LOVE MD Jul 26, 2021 09:54
[2021-07-26 10:27] LABS: POTASSIUM 3.2 MMOL/L (3.6-5.0)
[2021-07-26 10:28] LABS: CALCIUM 7.2 MG/DL (8.5-10.1)
[2021-07-26 10:32] LABS: CREATININE SERUM 0.71 MG/DL (0.60-1.30)
[2021-07-26] MEDS: ENOXAPARIN 40 MG/0.4 ML (LOVENOX) SYR SC SCH (11:29)
--- NOTE | 2021-07-26 12:40 | History & Physical-Hospitalist ---
KING ARTHUR 07/26/21 1239: History of Present Illness HPI/Chief Complaint Previous HPI from ED: PT ARRIVES VIA POV FROM HOME, HAS NOT BEEN FEELING WELL FOR ABOUT 2 WEEKS, C/O GENERALIZED WEAKNESS, NAUSEA AND VOMITING PT IS DIABETIC, AND BLOOD SUGAR HAS BEEN > 300--IS UNCLEAR HOW LONG HIS BLOOD SUGAR HAS BEEN ELEVATED OR HOW OFTEN HE CHECKS BLOOD GLUCOSE PT IS ON METFORMIN--IS UNCLEAR IF HE HAS MISSED DOSES OF MEDICATIONS PT ALSO IS ON MEDICATION FOR HTN PT HAS NOT SOUGHT CARE UNTIL TODAY FOR THIS PROBLEM PT WAS ADMITTED HERE IN NOVEMBER OF 2019--FIRST VISIT AND ONLY PRIOR VISIT HERE--AND WAS DX WITH DIABETES AND WAS FOUND TO BE IN DKA, AND REQUIRED INTUBATION DUE TO SEVERE ACIDOSIS. IS UNCLEAR WHEN HE WAS LAST SEEN BY , OR IF HIS MEDICATIONS HAVE BEEN CHANGED DOES STATE HE HAS BEEN TO [facility] Today when I visited the pt he was resting comfortably in bed. He states that he is feeling much better and is hungry for food. Pt is in good spirits and recovering well. Source: patient Exam Limitations: language barrier Date Seen 07/26/21 Time Seen by a Provider: 09:06 Attending Physician Sumaya Weiss DO [facility] Referring Physician Date of Admission Jul 25, 2021 at 20:40 Home Medications & Allergies Home Medications Reviewed patient Home Medication Reconciliation performed by pharmacy medication reconciliations cartography technician and/or nursing. Patients Allergies have been reviewed. Allergies Allergies Coded Allergies No Known Drug Allergies (Unverified12/02/19) Past Euupwqi-Qtnbhq-Gzukun Hx Patient Social History Tobacco Use?: No Smoking Status: Never a Smoker Smokeless Tobacco Frequency: Never a User Use of E-Cig and/or Vaping dev: No Use of E-Cig and/or Vaping Jarad: Never a User Substance use?: No Alcohol Use?: No Pt feels they are or have been: No Seasonal Allergies Seasonal Allergies: No Current Status Advance Directives: No Communicates: Verbally Primary Language: Prydeinig Preferred Spoken Language: Prydeinig Is interpretation needed?: Yes Past Medical History Hypertension Diabetes, Insulin dep Blood Disorders: No Family Medical History No Pertinent Family Hx (Pt states that his mother and father are in good health) Review of Systems Constitutional: No chills, No diaphoresis, No fever, No weakness EENTM: No hearing loss, No hoarseness, No mouth pain, No mouth swelling, No nose pain, No throat pain, No throat swelling Respiratory: No cough, No dyspnea on exertion, No hemoptysis, No orthopnea, No short of breath, No wheezing Cardiovascular: No chest pain, No edema, No Hx of Intervention, No palpitat ions, No syncope Gastrointestinal: No RUQ, No LUQ, No RLQ, No LLQ, No constipation, No diarrhea, No dysphagia, No hematemesis, No nausea, No vomiting Genitourinary: No decreased output, No discharge, No dysuria, No frequency Musculoskeletal: No back pain, No joint pain, No joint swelling, No muscle pain, No muscle stiffness, No muscle cramps Skin: No change in color, No change in hair/nails, No dryness, No lesions, No pruritus Psychiatric/Neurological: Denies Headache, Denies Numbness, Denies Tremors, Denies Weakness Physical Exam Physical Exam Vital Signs Vital Signs - First Documented 07/25/21 19:21 Temp 36.1 Pulse 103 Resp 22 B/P (MAP) 119/67 (84) Pulse Ox 100 O2 Delivery Room Air Capillary Refill : Less Than 3 Seconds Height, Weight, BMI Height: '" Weight: lbs. oz. kg; 24.00 BMI Method: General Appearance: No Apparent Distress, WD/WN Eyes: Bilateral Eye PERRL, Bilateral Eye EOMI HEENT: PERRL/EOMI, Pharynx Normal Neck: Full Range of Motion, Supple Respiratory: Chest Non Tender, Lungs Clear, Normal Breath Sounds, No Accessory Muscle Use, No Respiratory Distress Cardiovascular: Regular Rate, Rhythm, No Edema, No Gallop, No JVD, No Murmur, Normal Peripheral Pulses Gastrointestinal: Normal Bowel Sounds, No Organomegaly, No Pulsatile Mass, Non Tender, Soft Rectal: Deferred Back: No CVA Tenderness, No Vertebral Tenderness Extremity: Normal Capillary Refill, Normal Range of Motion, Non Tender, No Calf Tenderness, No Pedal Edema Neurologic/Psychiatric: Alert, Oriented x3, No Motor/Sensory Deficits, Normal 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 Assessment/Plan Admission Diagnosis DKA Assessment and Plan DKA - hyperglycemia HTN Plan: DKA protocol to include: IV fluids, IV potassium, IV Insulin, IV dextrose, routine glucose monitoring Advance to ADA diet as tolerated Supportive care SUMAYA WEISS DO 07/27/21 0554: History of Present Illness HPI/Chief Complaint CC: DKA HPI: This is a 50yoWM who presents to the ER with nausea and vomiting found to have DKA. Currently he denies any pain, he is requiring aggressive IV fluid resuscitation an insulin drop. His bicarb is still low at 12. Source: patient Exam Limitations: language barrier Past Peqidbb-Jlwnwj-Pqnsgq Hx Patient Social History Marrital Status: single Employed/Student: employed Smoking Status: Never a Smoker Past Medical History Diabetes, Insulin dep Review of Systems Constitutional: see HPI Physical Exam Physical Exam General Appearance: No Apparent Distress Eyes: Right Eye Normal Inspection, Right Eye PERRL HEENT: PERRL/EOMI, Normal ENT Inspection, Pharynx Normal, Moist Mucous Membranes Neck: Full Range of Motion, Normal Inspection, Non Tender Respiratory: Chest Non Tender, Lungs Clear, Normal Breath Sounds, No Accessory Muscle Use, No Respiratory Distress Cardiovascular: Regular Rate, Rhythm, No Edema, No Gallop, No JVD, No Murmur, Normal Peripheral Pulses Gastrointestinal: Normal Bowel Sounds, No Organomegaly, No Pulsatile Mass, Non Tender, Soft Back: Normal Inspection, No CVA Tenderness, No Vertebral Tenderness Extremity: Normal Capillary Refill, Normal Inspection, Normal Range of Motion, Non Tender, No Calf Tenderness, No Pedal Edema Neurologic/Psychiatric: Alert, Oriented x3, No Motor/Sensory Deficits, Normal Mood/Affect Skin: Normal Color, Warm/Dry Lymphatic: No Adenopathy Assessment/Plan Admission Diagnosis DKA Plan: ICU care Insulin drip Admission Status: Inpatient Order (span 2 midnights) Reason for Inpatient Admission: DKA Supervisory-Addendum Brief Verification & Attestation Participated in pt care: history, MDM, physical Personally performed: exam, history, MDM, supervision of care Care discussed with: Medical Student Procedures: n/a Results interpretation: Verified all documentation Verification and Attestation of Medical Student E/M Service A medical student performed and documented this service in my presence. I reviewed and verified all information documented by the medical student and made modifications to such information, when appropriate. I personally performed the physical exam and medical decision making. Sumaya Weiss, Jul 27, 2021,05:54 KING ARTHUR Jul 26, 2021 12:39 SUMAYA WEISS DO Jul 27, 2021 05:54
[2021-07-26 13:41] LABS: POTASSIUM 3.1 MMOL/L (3.6-5.0)
[2021-07-26 13:42] LABS: CALCIUM 7.4 MG/DL (8.5-10.1)
[2021-07-26 13:47] LABS: CREATININE SERUM 0.77 MG/DL (0.60-1.30)
[2021-07-26] MEDS ORDERED: METO50TA7 PO (16:32)
[2021-07-26] MEDS ORDERED: METF-399 PO (16:32)
[2021-07-26] MEDS ORDERED: LISI20TA26 PO (16:32)
[2021-07-26 17:25] LABS: CALCIUM 7.7 MG/DL (8.5-10.1)
[2021-07-26 17:30] LABS: CREATININE SERUM 0.72 MG/DL (0.60-1.30)
[2021-07-26 21:14] LABS: CALCIUM 7.7 MG/DL (8.5-10.1)
[2021-07-26 21:19] LABS: CREATININE SERUM 0.77 MG/DL (0.60-1.30)
[2021-07-27] MEDS: POTASSIUM CL 10MEQ/50ML IVPB 50 ML IV SCH ×7 (00:03→08:24)
[2021-07-27] MEDS: D5 1/2 NS 1000 ML IV SOLUTION 1,000 ML IV SCH ×3 (01:06→08:24)
[2021-07-27] MEDS: 1/2 NS IV SOLUTION 1,000 ML IV SCH ×4 (02:15→21:24)
[2021-07-27 04:44] LABS: BASOPHILS % (AUTO) 1 % (0-10); EOSINOPHILS # (AUTO) 0.1 10^3/uL (0.0-0.3); EOSINOPHILS % (AUTO) 2 % (0-10); HEMATOCRIT 35 % (40-54); HEMOGLOBIN 11.9 g/dL (13.3-17.7); LYMPHOCYTES # (AUTO) 2.6 10^3/uL (1.0-4.0); LYMPHOCYTES % (AUTO) 37 % (12-44); MEAN CORPUSCULAR HEMOGLOBIN 28 pg (25-34); MEAN CORPUSCULAR HGB CONC 34 g/dL (32-36); MEAN CORPUSCULAR VOLUME 82 fL (80-99); MEAN PLATELET VOLUME 10.8 fL (9.0-12.2); MONOCYTES # (AUTO) 0.7 10^3/uL (0.0-1.0); MONOCYTES % (AUTO) 11 % (0-12); NEUTROPHILS # (AUTO) 3.4 10^3/uL (1.8-7.8); NEUTROPHILS % (AUTO) 49 % (42-75); PLATELET COUNT 232 10^3/uL (130-400); WHITE BLOOD COUNT 6.9 10^3/uL (4.3-11.0)
[2021-07-27 05:06] LABS: ALBUMIN 2.9 GM/DL (3.2-4.5); POTASSIUM 2.8 MMOL/L (3.6-5.0)
[2021-07-27 05:07] LABS: CALCIUM 7.7 MG/DL (8.5-10.1)
[2021-07-27 05:08] LABS: TOTAL PROTEIN 5.2 GM/DL (6.4-8.2)
[2021-07-27 05:10] LABS: BILIRUBIN,TOTAL 0.6 MG/DL (0.1-1.0)
[2021-07-27 05:11] LABS: PHOSPHORUS 1.8 MG/DL (2.3-4.7)
[2021-07-27 05:12] LABS: CREATININE SERUM 0.62 MG/DL (0.60-1.30)
[2021-07-27 05:15] LABS: MAGNESIUM 1.7 MG/DL (1.6-2.4)
[2021-07-27] MEDS: KCL 20 MEQ TAB (K-DUR) PO SCH (05:19)
[2021-07-27] MEDS ORDERED: KCL 20 MEQ TAB (K-DUR) PO ONE ×3 (05:30→09:30)
[2021-07-27] MEDS: MAGNESIUM 1 GM/100 ML IVPB 100 ML IV SCH ×3 (05:32→05:50)
[2021-07-27 07:58] LABS: CALCIUM 7.8 MG/DL (8.5-10.1); CREATININE SERUM 0.62 MG/DL (0.60-1.30); POTASSIUM 3.1 MMOL/L (3.6-5.0)
[2021-07-27] MEDS ORDERED: metFORMIN 500 MG (GLUCOPHAGE) TAB PO SCH (09:00)
[2021-07-27] MEDS: ENOXAPARIN 40 MG/0.4 ML (LOVENOX) SYR SC SCH (09:15)
--- NOTE | 2021-07-27 10:25 | Tele-ICU Progress Note ---
Subjective Date Seen by a Provider: Jul 27, 2021 Time Seen by a Provider: 10:24 Sepsis Event Evaluation Height, Weight, BMI Height: '" Weight: lbs. oz. kg; 24.00 BMI Method: Focused Exam Lactate Level 07/25/21 19:40: Lactic Acid Level 1.21 Exam Exam Patient acknowledged, consented, and participated in this virtual visit which was conducted using real time audio/video Vital Signs Date Time Temp Pulse Resp B/P (MAP) Pulse Ox O2 Delivery O2 Flow Rate FiO2 07/27/21 09:00 81 99 123/84 100 Room Air 07/27/21 08:23 36.5 07/27/21 08:00 81 10 111/97 100 Room Air 07/27/21 08:00 99 Room Air 07/27/21 07:00 73 10 120/82 98 Room Air 07/27/21 07:00 74 07/27/21 06:00 70 19 129/86 99 Room Air 07/27/21 05:00 70 19 121/78 98 Room Air 07/27/21 04:00 37.1 Room Air 07/27/21 04:00 75 19 129/85 97 Room Air 07/27/21 04:00 100 Room Air 07/27/21 03:00 77 19 133/89 99 Room Air 07/27/21 02:00 87 12 130/83 99 Room Air 07/27/21 01:00 82 19 118/68 98 Room Air 07/27/21 01:00 90 07/27/21 00:00 79 12 123/85 99 Room Air 07/27/21 00:00 36.6 07/26/21 23:59 100 Room Air 07/26/21 23:00 89 12 127/87 99 Room Air 07/26/21 22:00 84 12 121/81 99 Room Air 07/26/21 21:00 81 12 123/77 99 Room Air 07/26/21 20:30 36.8 07/26/21 20:00 80 12 119/73 98 Room Air 07/26/21 20:00 100 Room Air 07/26/21 19:49 36.8 07/26/21 19:00 87 07/26/21 19:00 87 12 115/75 98 Room Air 07/26/21 18:00 86 17 115/73 99 Room Air 07/26/21 17:00 90 13 112/78 99 Room Air 07/26/21 16:08 100 Room Air 07/26/21 16:00 84 11 117/71 99 Room Air 07/26/21 15:59 36.1 07/26/21 15:00 77 9 110/65 99 Room Air 07/26/21 14:00 81 13 108/62 97 Room Air 07/26/21 13:00 98 10 116/70 98 Room Air 07/26/21 12:32 89 07/26/21 12:16 99 Room Air 07/26/21 12:00 82 10 112/65 98 Room Air 07/26/21 11:00 84 15 104/59 97 Room Air l I & O 07/27/21 07:00 Intake Total 1630 ml Output Total 6700 ml Balance -5070 ml Height & Weight Height: '" Weight: lbs. oz. kg; 24.00 BMI Method: General Appearance: No Apparent Distress HEENT: PERRL/EOMI, Normal ENT Inspection, Pharynx Normal, Moist Mucous Membranes Neck: Full Range of Motion, Normal Inspection, Non Tender Respiratory: Chest Non Tender, Lungs Clear, Normal Breath Sounds, No Accessory Muscle Use, No Respiratory Distress Cardiovascular: Regular Rate, Rhythm, No Edema, No Gallop, No JVD, No Murmur, Normal Peripheral Pulses Capillary Refill: Less Than 3 Seconds Gastrointestinal: normal bowel sounds, non tender Extremity: Normal Capillary Refill, Normal Inspection, Normal Range of Motion, Non Tender, No Calf Tenderness, No Pedal Edema Neurologic/Psychiatric: Alert, Oriented x3, No Motor/Sensory Deficits, Normal Mood/Affect Skin: Normal Color, Warm/Dry Lymphatic: No Adenopathy Results Lab Laboratory Tests 07/25/21 19:40 07/25/21 22:43 07/26/21 00:57 07/26/21 04:11 07/26/21 10:03 07/26/21 13:25 07/26/21 16:57 07/26/21 20:26 07/27/21 04:17 07/27/21 07:30 Assessment/Plan Assessment/Plan (Tele-ICU Physician , Progress Note ) Available chart/ vitals / labs / Images reviewed Video assessment done using teleICU camera, rest of exam as per RN Discussed with RN , EXAM PER RN Events overnight : Afebrile FiO2 - ra I/O = even Drips: insulin Pressors: , hemodynamically stable Consultants: Hospital course: 07/25 - DKA A/P DKA -Unclear precipitant, No suspicious for new infection_ *Insulin drip continue to monitor for resolution of acidosis, AG and electrolytes. Continue hydration. - AG closed , on 5 U now - as per PCP to con metformin , or needs new DM regiment *Tx Gastroparesis - replace lytes BAYRON - dehydration - cont IVF - follow closely - improved Leukocytosis - reactive, chest x-ray was normal , UA unremarkable >off ABX , follow Lines : (Central Line Necessity Reviewed) Mccarty: OG: Nutrition: Analgesia: Anxiety/ delirium VTE Prophylaxis: lovenox Stress Ulcer Prophylaxis: po intake Plans in collaboration with bedside consultants and IM MDs. Discussed with RN to reach out if any questions or concerns A total of 25 minutes of critical care time was devoted to this patient today, required to treat and/or prevent further deterioration of critical care condition ( as above) . BRIGETTE LOVE MD Jul 27, 2021 10:25
[2021-07-27 14:03] VITALS: BP 125/72
--- NOTE | 2021-07-27 15:30 | Progress Note - Hospitalist ---
ANGELOMARCEKING 07/27/21 1530: Subjective HPI/CC On Admission Date Seen by Provider: Jul 27, 2021 Time Seen by Provider: 08:51 Subjective/Events-last exam Today when I visited the pt he was resting in bed and states that he is feeling very well. Pt has been consuming a normal ADA diet without any issues and has normal bowel and urinary function. Pt confirms that he has only be taking meformin for his T1DM which had onset 2 yrs ago, and does not currently take any insulin at home. Pt education for diabetes is planned as well as prescription for insulin. Review of Systems General: No Chills, No Night Sweats, No Fatigue; Appetite HEENT: No Head Aches, No Visual Changes, No Dysphasia, No Sore Throat Pulmonary: No Dyspnea, No Cough, No Pleuritic Chest Pain Cardiovascular: No: Chest Pain, Palpitations, Edema, Lt Headedness Gastrointestinal: No: Nausea, Vomiting, Abdominal Pain, Diarrhea, Constipation, Melena, Hematochezia Genitourinary: No Dysuria, No Frequency, No Incontinence, No Hematuria Musculoskeletal: No: neck pain, shoulder pain, arm pain, back pain, hand pain Neurological: No: Weakness, Numbness, Change in speech, Seizures Focused Exam Lactate Level 07/25/21 19:40: Lactic Acid Level 1.21 Objective Exam Vital Signs Vital Signs Date Time Temp Pulse Resp B/P (MAP) Pulse Ox O2 Delivery O2 Flow Rate FiO2 07/27/21 14:03 36.6 100 18 125/72 (89) 98 Room Air Capillary Refill : Less Than 3 Seconds General Appearance: No Apparent Distress, WD/WN HEENT: PERRL/EOMI, Pharynx Normal Neck: Full Range of Motion, Non Tender, Supple Respiratory: Chest Non Tender, Lungs Clear, Normal Breath Sounds, No Accessory Muscle Use, No Respiratory Distress Cardiovascular: Regular Rate, Rhythm, No Edema, No Gallop, No Murmur, Normal Peripheral Pulses Gastrointestinal: Normal Bowel Sounds, No Organomegaly, No Pulsatile Mass, Non Tender, Soft Rectal: Deferred Back: No CVA Tenderness, No Vertebral Tenderness Extremity: Normal Capillary Refill, Normal Range of Motion, Non Tender, No Calf Tenderness, No Pedal Edema Neurologic/Psychiatric: Alert, Oriented x3, No Motor/Sensory Deficits, Normal 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 Assessment/Plan Assessment and Plan Assess & Plan/Chief Complaint DKA - hyperglycemia HTN Plan: DKA protocol to include: IV fluids, IV potassium, IV Insulin, IV dextrose, routine glucose monitoring Advance to ADA diet as tolerated Supportive care 07/27/20 Remove from insulin drip and start sub-q Move to medical floor Continue ADA diet Supportive care Patient education regarding diabetes management SUMAYA MOJICA DO 07/28/21 0554: Subjective Subjective/Events-last exam Patient doing a lot better Blood sugars improved Never been on insulin Review of Systems General: Fatigue Objective Exam General Appearance: No Apparent Distress, WD/WN, Chronically ill Assessment/Plan Assessment and Plan Assess & Plan/Chief Complaint Discharge on insulin tomorrow Supervisory-Addendum Brief Verification & Attestation Participated in pt care: history, MDM, physical Personally performed: exam, history, MDM, supervision of care Care discussed with: Medical Student Procedures: n/a Results interpretation: Verified all documentation Verification and Attestation of Medical Student E/M Service A medical student performed and documented this service in my presence. I reviewed and verified all information documented by the medical student and made modifications to such information, when appropriate. I personally performed the physical exam and medical decision making. Sumaya Mojica Jul 28, 2021,05:53 KING ARTHUR Jul 27, 2021 15:30 SUMAYA MOJICA DO Jul 28, 2021 05:54
[2021-07-27] MEDS: inSUlin ASPART (NovoLOG) 1 UNIT/0.01 ML (CHARGE PER UNIT) SC SCH ×2 (15:53→20:30)
[2021-07-27 16:00] VITALS: BP 129/78
[2021-07-27 19:52] VITALS: BP 160/71
[2021-07-28 00:01] VITALS: BP 122/75
[2021-07-28 03:43] VITALS: BP 126/79
[2021-07-28] MEDS: inSUlin ASPART (NovoLOG) 1 UNIT/0.01 ML (CHARGE PER UNIT) SC SCH ×2 (05:28→12:24)
[2021-07-28 05:49] LABS: ALBUMIN 2.9 GM/DL (3.2-4.5); POTASSIUM 4.1 MMOL/L (3.6-5.0)
[2021-07-28 05:50] LABS: CALCIUM 8.2 MG/DL (8.5-10.1)
[2021-07-28 05:52] LABS: TOTAL PROTEIN 5.8 GM/DL (6.4-8.2)
[2021-07-28 05:54] LABS: BILIRUBIN,TOTAL 0.6 MG/DL (0.1-1.0)
[2021-07-28 05:55] LABS: CREATININE SERUM 0.65 MG/DL (0.60-1.30)
[2021-07-28 06:13] LABS: BASOPHILS % (AUTO) 1 % (0-10); EOSINOPHILS # (AUTO) 0.1 10^3/uL (0.0-0.3); EOSINOPHILS % (AUTO) 1 % (0-10); HEMATOCRIT 36 % (40-54); HEMOGLOBIN 12.5 g/dL (13.3-17.7); LYMPHOCYTES # (AUTO) 2.5 10^3/uL (1.0-4.0); LYMPHOCYTES % (AUTO) 43 % (12-44); MEAN CORPUSCULAR HEMOGLOBIN 28 pg (25-34); MEAN CORPUSCULAR HGB CONC 34 g/dL (32-36); MEAN CORPUSCULAR VOLUME 83 fL (80-99); MEAN PLATELET VOLUME 10.3 fL (9.0-12.2); MONOCYTES # (AUTO) 0.7 10^3/uL (0.0-1.0); MONOCYTES % (AUTO) 12 % (0-12); NEUTROPHILS # (AUTO) 2.5 10^3/uL (1.8-7.8); NEUTROPHILS % (AUTO) 43 % (42-75); PLATELET COUNT 230 10^3/uL (130-400); WHITE BLOOD COUNT 5.8 10^3/uL (4.3-11.0)
[2021-07-28 08:00] VITALS: BP 123/73
[2021-07-28] MEDS: ENOXAPARIN 40 MG/0.4 ML (LOVENOX) SYR SC SCH (08:58)
[2021-07-28] MEDS: 1/2 NS IV SOLUTION 1,000 ML IV SCH (08:58)
[2021-07-28] MEDS ORDERED: BLOO-1350 MC (11:38)
[2021-07-28] MEDS ORDERED: PEN-53 MC (11:38)
[2021-07-28] MEDS ORDERED: INSU100I14 SQ (11:38)
[2021-07-28] MEDS ORDERED: INSU100I34 SQ (11:38)
[2021-07-28] MEDS ORDERED: [UNRECOGNIZED DRUG - CODE] MC (11:38)
--- NOTE | 2021-07-28 11:38 | Discharge Summary ---
Diagnosis/Chief Complaint Date of Admission Jul 25, 2021 at 20:40 Date of Discharge Discharge Date: Jul 28, 2021 Discharge Summary Discharge Physical Examination Allergies: Coded Allergies: No Known Drug Allergies (Unverified , 12/02/19) Vitals & I&Os Vital Signs Date Time Temp Pulse Resp B/P (MAP) Pulse Ox O2 Delivery O2 Flow Rate FiO2 07/28/21 11:50 36.5 84 20 123/70 (87) 98 Room Air Hospital Course Labs (last 24 hrs) Laboratory Tests 07/25/21 19:35: Glucometer 441*H 07/25/21 19:39: SARS-CoV-2 RNA (RT-PCR) Not Detected 07/25/21 19:40: White Blood Count 12.4H, Red Blood Count 4.93, Hemoglobin 14.0, Hematocrit 42, Mean Corpuscular Volume 85, Mean Corpuscular Hemoglobin 28, Mean Corpuscular Hemoglobin Concent 33, Red Cell Distribution Width 13.3, Platelet Count 378, Mean Platelet Volume 10.8, Immature Granulocyte % (Auto) 2, Neutrophils (%) (Auto) 77H, Lymphocytes (%) (Auto) 14, Monocytes (%) (Auto) 7, Eosinophils (%) (Auto) 0, Basophils (%) (Auto) 0, Neutrophils # (Auto) 9.5H, Lymphocytes # (Auto) 1.8, Monocytes # (Auto) 0.9, Eosinophils # (Auto) 0.0, Basophils # (Auto) 0.0, Immature Granulocyte # (Auto) 0.2H, Sodium Level 130L, Potassium Level 4.1, Chloride Level 99, Carbon Dioxide Level 5*L, Anion Gap 26H, Blood Urea Nitrogen 18, Creatinine 1.53H, Estimat Glomerular Filtration Rate 48, BUN/Creatinine Ratio 12, Glucose Level 491*H, Mean Blood Glucose 372H, Hemoglobin A1c 14.6H, Lactic Acid Level 1.21, Calcium Level 9.7, Corrected Calcium 9.7, Magnesium Level 2.0, Total Bilirubin 0.9, Aspartate Amino Transf (AST/SGOT) 11, Alanine Aminotransferase (ALT/SGPT) 15, Alkaline Phosphatase 179H, Total Protein 7.8, Albumin 4.0, Amylase Level 40, Lipase 42, Beta-Hydroxybutyrate (Chem panel) 10.25H, Procalcitonin 0.09, Serum Alcohol < 10 07/25/21 19:50: Blood Gas Puncture Site RGHT RAD, Blood Gas Patient Temperature 36.1, Arterial Blood pH 7.18*L, Arterial Blood Partial Pressure CO2 8*L, Arterial Blood Partial Pressure O2 125H, Arterial Blood HCO3 3*L, Arterial Blood Total CO2 3.1*L, Arterial Blood Oxygen Saturation 98, Arterial Blood Base Excess -25.2L, Scotty Test POS, Blood Gas Ventilator Setting NO, Blood Gas Inspired Oxygen ROOM AIR 07/25/21 20:18: Urine Color YELLOW, Urine Clarity CLEAR, Urine pH 5.5, Urine Specific [place] >=1.030, Urine Protein TRACEH, Urine Glucose (UA) 2+H, Urine Ketones 2+H, Urine Nitrite NEGATIVE, Urine Bilirubin NEGATIVE, Urine Urobilinogen 0.2, Urine Leukocyte Esterase NEGATIVE, Urine RBC (Auto) 1+H, Urine RBC NONE, Urine WBC 0- 2, Urine Squamous Epithelial Cells NONE, Urine Renal Epithelial Cells NONE, Urine Crystals NONE, Urine Bacteria NEGATIVE, Urine Casts NONE, Urine Mucus NEGATIVE, Urine Culture Indicated NO, Urine Opiates Screen NEGATIVE, Urine Oxycodone Screen NEGATIVE, Urine Methadone Screen NEGATIVE, Urine Propoxyphene Screen NEGATIVE, Urine Barbiturates Screen NEGATIVE, Ur Tricyclic Antidepressants Screen NEGATIVE, Urine Phencyclidine Screen NEGATIVE, Urine Amphetamines Screen NEGATIVE, Urine Methamphetamines Screen NEGATIVE, Urine Benzodiazepines Screen NEGATIVE, Urine Cocaine Screen NEGATIVE, Urine Cannabinoids Screen NEGATIVE 07/25/21 21:38: Glucometer 236H 07/25/21 22:41: Glucometer 273H 07/25/21 22:43: Blood Gas Puncture Site RIGHT RADIAL, Blood Gas Patient Temperature 36.8, Arterial Blood pH 7.21*L, Arterial Blood Partial Pressure CO2 15*L, Arterial Blood Partial Pressure O2 151H, Arterial Blood HCO3 6*L, Arterial Blood Total CO2 6.2*L, Arterial Blood Oxygen Saturation 99, Arterial Blood Base Excess - 21.0L, Scotty Test YES-POS, Blood Gas Ventilator Setting NO, Blood Gas Inspired Oxygen ROOM AIR, Sodium Level 135, Potassium Level 3.5L, Chloride Level 109H, Carbon Dioxide Level 5*L, Anion Gap 21H, Blood Urea Nitrogen 13, Creatinine 1.00, Estimat Glomerular Filtration Rate 79, BUN/Creatinine Ratio 13, Glucose Level 299H, Calcium Level 8.5 07/25/21 23:41: Glucometer 276H 07/26/21 00:57: Glucometer 267H, Sodium Level 134L, Potassium Level 3.2L, Chloride Level 109H, Carbon Dioxide Level 7*L, Anion Gap 18H, Blood Urea Nitrogen 11, Creatinine 1.03, Estimat Glomerular Filtration Rate 76, BUN/Creatinine Ratio 11, Glucose Level 311H, Calcium Level 7.6L 07/26/21 02:04: Glucometer 249H 07/26/21 03:17: Glucometer 182H 07/26/21 04:11: White Blood Count 8.2, Red Blood Count 4.04L, Hemoglobin 11.5L, Hematocrit 34L, Mean Corpuscular Volume 83, Mean Corpuscular Hemoglobin 29, Mean Corpuscular Hemoglobin Concent 34, Red Cell Distribution Width 13.5, Platelet Count 279, Mean Platelet Volume 10.8, Immature Granulocyte % (Auto) 1, Neutrophils (%) (Auto) 57, Lymphocytes (%) (Auto) 30, Monocytes (%) (Auto) 11, Eosinophils (%) (Auto) 1, Basophils (%) (Auto) 1, Neutrophils # (Auto) 4.7, Lymphocytes # (Auto) 2.4, Monocytes # (Auto) 0.9, Eosinophils # (Auto) 0.1, Basophils # (Auto) 0.0, Immature Granulocyte # (Auto) 0.1, Sodium Level 135, Potassium Level 2.9L, Chloride Level 111H, Carbon Dioxide Level 12L, Anion Gap 12, Blood Urea Nitrogen 9, Creatinine 0.83, Estimat Glomerular Filtration Rate 98, BUN/Creatinine Ratio 11, Glucose Level 148H, Calcium Level 7.2L, Corrected Calcium 8.0L, Phosphorus Level 1.1L, Magnesium Level 1.4L, Total Bilirubin 0.7, Aspartate Amino Transf (AST/SGOT) 10, Alanine Aminotransferase (ALT/SGPT) 12, Alkaline Phosphatase 118, Total Protein 5.3L, Albumin 3.0L, Beta-Hydroxybutyrate (Chem panel) 1.55H 07/26/21 04:16: Glucometer 140H 07/26/21 05:21: Glucometer 149H 07/26/21 06:38: Glucometer 141H 07/26/21 07:39: Glucometer 141H 07/26/21 08:37: Glucometer 134H 07/26/21 10:03: Sodium Level 132L, Potassium Level 3.2L, Chloride Level 109H, Carbon Dioxide Level 14L, Anion Gap 9, Blood Urea Nitrogen 6L, Creatinine 0.71, Estimat Glomerular Filtration Rate 117, BUN/Creatinine Ratio 8, Glucose Level 158H, Calcium Level 7.2L 07/26/21 10:22: Glucometer 203H 07/26/21 11:27: Glucometer 223H 07/26/21 13:04: Glucometer 278H 07/26/21 13:25: Sodium Level 130L, Potassium Level 3.1L, Chloride Level 106, Carbon Dioxide Level 16L, Anion Gap 8, Blood Urea Nitrogen 8, Creatinine 0.77, Estimat Glomerular Filtration Rate 107, BUN/Creatinine Ratio 10, Glucose Level 303H, Calcium Level 7.4L 07/26/21 13:48: Glucometer 336H 07/26/21 14:58: Glucometer 233H 07/26/21 15:46: Glucometer 188H 07/26/21 16:56: Glucometer 138H 07/26/21 16:57: Sodium Level 134L, Potassium Level 3.0L, Chloride Level 108H, Carbon Dioxide Level 17L, Anion Gap 9, Blood Urea Nitrogen 7, Creatinine 0.72, Estimat Glomerular Filtration Rate 116, BUN/Creatinine Ratio 10, Glucose Level 151H, Calcium Level 7.7L 07/26/21 17:54: Glucometer 246H 07/26/21 18:42: Glucometer 247H 07/26/21 19:49: Glucometer 248H 07/26/21 20:26: Sodium Level 133L, Potassium Level 3.0L, Chloride Level 107, Carbon Dioxide Level 17L, Anion Gap 9, Blood Urea Nitrogen 7, Creatinine 0.77, Estimat Glomerular Filtration Rate 107, BUN/Creatinine Ratio 9, Glucose Level 263H, Calcium Level 7.7L 07/26/21 20:53: Glucometer 231H 07/26/21 21:44: Glucometer 186H 07/26/21 23:00: Glucometer 151H 07/26/21 23:53: Glucometer 127H 07/27/21 00:53: Glucometer 130H 07/27/21 01:58: Glucometer 127H 07/27/21 03:02: Glucometer 146H 07/27/21 04:05: Glucometer 155H 07/27/21 04:17: White Blood Count 6.9, Red Blood Count 4.24L, Hemoglobin 11.9L, Hematocrit 35L, Mean Corpuscular Volume 82, Mean Corpuscular Hemoglobin 28, Mean Corpuscular Hemoglobin Concent 34, Red Cell Distribution Width 13.5, Platelet Count 232, Mean Platelet Volume 10.8, Immature Granulocyte % (Auto) 0, Neutrophils (%) (Aut o) 49, Lymphocytes (%) (Auto) 37, Monocytes (%) (Auto) 11, Eosinophils (%) (Auto) 2, Basophils (%) (Auto) 1, Neutrophils # (Auto) 3.4, Lymphocytes # (Auto) 2.6, Monocytes # (Auto) 0.7, Eosinophils # (Auto) 0.1, Basophils # (Auto) 0.0, Immature Granulocyte # (Auto) 0.0, Sodium Level 135, Potassium Level 2.8L, Chloride Level 108H, Carbon Dioxide Level 17L, Anion Gap 10, Blood Urea Nitrogen 4L, Creatinine 0.62, Estimat Glomerular Filtration Rate 137, BUN/Creatinine Ratio 6, Glucose Level 162H, Calcium Level 7.7L, Corrected Calcium 8.6, Phosphorus Level 1.8L, Magnesium Level 1.7, Total Bilirubin 0.6, Aspartate Amino Transf (AST/SGOT) 11, Alanine Aminotransferase (ALT/SGPT) 11, Alkaline Phosphatase 113, Total Protein 5.2L, Albumin 2.9L, Beta-Hydroxybutyrate (Chem panel) 0.25 07/27/21 05:59: Glucometer 156H 07/27/21 06:56: Glucometer 170H 07/27/21 07:16: Glucometer 148H 07/27/21 07:30: Sodium Level 135, Potassium Level 3.1L, Chloride Level 108H, Carbon Dioxide Level 19L, Anion Gap 8, Blood Urea Nitrogen 3L, Creatinine 0.62, Estimat Glomerular Filtration Rate 137, BUN/Creatinine Ratio 5, Glucose Level 192H, Calcium Level 7.8L 07/27/21 08:33: Glucometer 195H 07/27/21 09:09: Glucometer 219H 07/27/21 10:26: Glucometer 167H 07/27/21 11:14: Glucometer 166H 07/27/21 15:13: Glucometer 225H 07/27/21 20:12: Glucometer 317H 07/28/21 05:07: Sodium Level 135, Potassium Level 4.1, Chloride Level 102, Carbon Dioxide Level 21, Anion Gap 12, Blood Urea Nitrogen 6L, Creatinine 0.65, Estimat Glomerular Filtration Rate 130, BUN/Creatinine Ratio 9, Glucose Level 120H, Calcium Level 8.2L, Corrected Calcium 9.1, Total Bilirubin 0.6, Aspartate Amino Transf (AST/SGOT) 25, Alanine Aminotransferase (ALT/SGPT) 15, Alkaline Phosphatase 131, Total Protein 5.8L, Albumin 2.9L 07/28/21 05:27: Glucometer 107 07/28/21 06:00: White Blood Count 5.8, Red Blood Count 4.40, Hemoglobin 12.5L, Hematocrit 36L, Mean Corpuscular Volume 83, Mean Corpuscular Hemoglobin 28, Mean Corpuscular Hemoglobin Concent 34, Red Cell Distribution Width 13.7, Platelet Count 230, Mean Platelet Volume 10.3, Immature Granulocyte % (Auto) 1, Neutrophils (%) (Auto) 43, Lymphocytes (%) (Auto) 43, Monocytes (%) (Auto) 12, Eosinophils (%) (Auto) 1, Basophils (%) (Auto) 1, Neutrophils # (Auto) 2.5, Lymphocytes # (Auto) 2.5, Monocytes # (Auto) 0.7, Eosinophils # (Auto) 0.1, Basophils # (Auto) 0.0, Immature Granulocyte # (Auto) 0.0 07/28/21 10:59: Glucometer 226H Microbiology 07/25/21 MRSA Screen - Final, Complete MRSA not isolated 07/25/21 Blood Culture - Preliminary, Resulted No growth Pending Labs Microbiology Date/Time Source Procedure Growth Status 07/25/21 22:40 Nasal MRSA Screen - Final MRSA not isolated Complete 07/25/21 20:35 Peripheral Left Wrist Blood Culture - Preliminary No growth Resulted 07/25/21 19:40 Peripheral Rt Ac Blood Culture - Preliminary No growth Resulted Laboratory Tests 07/25/21 19:35: Glucometer 441 07/25/21 19:39: SARS-CoV-2 RNA (RT-PCR) Not Detected 07/25/21 19:40: White Blood Count 12.4, Red Blood Count 4.93, Hemoglobin 14.0, Hematocrit 42, Mean Corpuscular Volume 85, Mean Corpuscular Hemoglobin 28, Mean Corpuscular Hemoglobin Concent 33, Red Cell Distribution Width 13.3, Platelet Count 378, Mean Platelet Volume 10.8, Immature Granulocyte % (Auto) 2, Neutrophils (%) (Auto) 77, Lymphocytes (%) (Auto) 14, Monocytes (%) (Auto) 7, Eosinophils (%) (Auto) 0, Basophils (%) (Auto) 0, Neutrophils # (Auto) 9.5, Lymphocytes # (Auto) 1.8, Monocytes # (Auto) 0.9, Eosinophils # (Auto) 0.0, Basophils # (Auto) 0.0, Immature Granulocyte # (Auto) 0.2, Sodium Level 130, Potassium Level 4.1, Chloride Level 99, Carbon Dioxide Level 5, Anion Gap 26, Blood Urea Nitrogen 18, Creatinine 1.53, Estimat Glomerular Filtration Rate 48, BUN/Creatinine Ratio 12, Glucose Level 491, Mean Blood Glucose 372, Hemoglobin A1c 14.6, Lactic Acid Level 1.21, Calcium Level 9.7, Corrected Calcium 9.7, Magnesium Level 2.0, Total Bilirubin 0.9, Aspartate Amino Transf (AST/SGOT) 11, Alanine Aminotransferase (ALT/SGPT) 15, Alkaline Phosphatase 179, Total Protein 7.8, Albumin 4.0, Amylase Level 40, Lipase 42, Beta-Hydroxybutyrate (Chem panel) 10.25, Procalcitonin 0.09, Serum Alcohol < 10 07/25/21 19:50: Blood Gas Puncture Site RGHT RAD, Blood Gas Patient Temperature 36.1, Arterial Blood pH 7.18, Arterial Blood Partial Pressure CO2 8, Arterial Blood Partial Pressure O2 125, Arterial Blood HCO3 3, Arterial Blood Total CO2 3.1, Arterial Blood Oxygen Saturation 98, Arterial Blood Base Excess -25.2, Scotty Test POS, Blood Gas Ventilator Setting NO, Blood Gas Inspired Oxygen ROOM AIR 07/25/21 20:18: Urine Color YELLOW, Urine Clarity CLEAR, Urine pH 5.5, Urine Specific [place] >=1.030, Urine Protein TRACE, Urine Glucose (UA) 2+, Urine Ketones 2+, Urine Nitrite NEGATIVE, Urine Bilirubin NEGATIVE, Urine Urobilinogen 0.2, Urine Leukocyte Esterase NEGATIVE, Urine RBC (Auto) 1+, Urine RBC NONE, Urine WBC 0-2, Urine Squamous Epithelial Cells NONE, Urine Renal Epithelial Cells NONE, Urine Crystals NONE, Urine Bacteria NEGATIVE, Urine Casts NONE, Urine Mucus NEGATIVE, Urine Culture Indicated NO, Urine Opiates Screen NEGATIVE, Urine Oxycodone Screen NEGATIVE, Urine Methadone Screen NEGATIVE, Urine Propoxyphene Screen NEGATIVE, Urine Barbiturates Screen NEGATIVE, Ur Tricyclic Antidepressants Screen NEGATIVE, Urine Phencyclidine Screen NEGATIVE, Urine Amphetamines Screen NEGATIVE, Urine Methamphetamines Screen NEGATIVE, Urine Benzodiazepines Screen NEGATIVE, Urine Cocaine Screen NEGATIVE, Urine Cannabinoids Screen NEGATIVE 07/25/21 21:38: Glucometer 236 07/25/21 22:41: Glucometer 273 07/25/21 22:43: Blood Gas Puncture Site RIGHT RADIAL, Blood Gas Patient Temperature 36.8, Arterial Blood pH 7.21, Arterial Blood Partial Pressure CO2 15, Arterial Blood Partial Pressure O2 151, Arterial Blood HCO3 6, Arterial Blood Total CO2 6.2, Arterial Blood Oxygen Saturation 99, Arterial Blood Base Excess -21.0, Scotty Test YES-POS, Blood Gas Ventilator Setting NO, Blood Gas Inspired Oxygen ROOM AIR, Sodium Level 135, Potassium Level 3.5, Chloride Level 109, Carbon Dioxide Level 5, Anion Gap 21, Blood Urea Nitrogen 13, Creatinine 1.00, Estimat Glomerular Filtration Rate 79, BUN/Creatinine Ratio 13, Glucose Level 299, Calcium Level 8.5 07/25/21 23:41: Glucometer 276 07/26/21 00:57: Glucometer 267, Sodium Level 134, Potassium Level 3.2, Chloride Level 109, Carbon Dioxide Level 7, Anion Gap 18, Blood Urea Nitrogen 11, Creatinine 1.03, Estimat Glomerular Filtration Rate 76, BUN/Creatinine Ratio 11, Glucose Level 311, Calcium Level 7.6 07/26/21 02:04: Glucometer 249 07/26/21 03:17: Glucometer 182 07/26/21 04:11: White Blood Count 8.2, Red Blood Count 4.04, Hemoglobin 11.5, Hematocrit 34, Mean Corpuscular Volume 83, Mean Corpuscular Hemoglobin 29, Mean Corpuscular Hemoglobin Concent 34, Red Cell Distribution Width 13.5, Platelet Count 279, Mean Platelet Volume 10.8, Immature Granulocyte % (Auto) 1, Neutrophils (%) (Auto) 57, Lymphocytes (%) (Auto) 30, Monocytes (%) (Auto) 11, Eosinophils (%) (Auto) 1, Basophils (%) (Auto) 1, Neutrophils # (Auto) 4.7, Lymphocytes # (Auto) 2.4, Monocytes # (Auto) 0.9, Eosinophils # (Auto) 0.1, Basophils # (Auto) 0.0, Immature Granulocyte # (Auto) 0.1, Sodium Level 135, Potassium Level 2.9, Chloride Level 111, Carbon Dioxide Level 12, Anion Gap 12, Blood Urea Nitrogen 9, Creatinine 0.83, Estimat Glomerular Filtration Rate 98, BUN/Creatinine Ratio 11, Glucose Level 148, Calcium Level 7.2, Corrected Calcium 8.0, Phosphorus Level 1.1, Magnesium Level 1.4, Total Bilirubin 0.7, Aspartate Amino Transf (AST/SGOT) 10, Alanine Aminotransferase (ALT/SGPT) 12, Alkaline Phosphatase 118, Total Protein 5.3, Albumin 3.0, Beta-Hydroxybutyrate (Chem panel) 1.55 07/26/21 04:16: Glucometer 140 07/26/21 05:21: Glucometer 149 07/26/21 06:38: Glucometer 141 07/26/21 07:39: Glucometer 141 07/26/21 08:37: Glucometer 134 07/26/21 10:03: Sodium Level 132, Potassium Level 3.2, Chloride Level 109, Carbon Dioxide Level 14, Anion Gap 9, Blood Urea Nitrogen 6, Creatinine 0.71, Estimat Glomerular Filtration Rate 117, BUN/Creatinine Ratio 8, Glucose Level 158, Calcium Level 7.2 07/26/21 10:22: Glucometer 203 07/26/21 11:27: Glucometer 223 07/26/21 13:04: Glucometer 278 07/26/21 13:25: Sodium Level 130, Potassium Level 3.1, Chloride Level 106, Carbon Dioxide Level 16, Anion Gap 8, Blood Urea Nitrogen 8, Creatinine 0.77, Estimat Glomerular Filtration Rate 107, BUN/Creatinine Ratio 10, Glucose Level 303, Calcium Level 7.4 07/26/21 13:48: Glucometer 336 07/26/21 14:58: Glucometer 233 07/26/21 15:46: Glucometer 188 07/26/21 16:56: Glucometer 138 07/26/21 16:57: Sodium Level 134, Potassium Level 3.0, Chloride Level 108, Carbon Dioxide Level 17, Anion Gap 9, Blood Urea Nitrogen 7, Creatinine 0.72, Estimat Glomerular Filtration Rate 116, BUN/Creatinine Ratio 10, Glucose Level 151, Calcium Level 7.7 07/26/21 17:54: Glucometer 246 07/26/21 18:42: Glucometer 247 07/26/21 19:49: Glucometer 248 07/26/21 20:26: Sodium Level 133, Potassium Level 3.0, Chloride Level 107, Carbon Dioxide Level 17, Anion Gap 9, Blood Urea Nitrogen 7, Creatinine 0.77, Estimat Glomerular Filtration Rate 107, BUN/Creatinine Ratio 9, Glucose Level 263, Calcium Level 7.7 07/26/21 20:53: Glucometer 231 07/26/21 21:44: Glucometer 186 07/26/21 23:00: Glucometer 151 07/26/21 23:53: Glucometer 127 07/27/21 00:53: Glucometer 130 07/27/21 01:58: Glucometer 127 07/27/21 03:02: Glucometer 146 07/27/21 04:05: Glucometer 155 07/27/21 04:17: White Blood Count 6.9, Red Blood Count 4.24, Hemoglobin 11.9, Hematocrit 35, Mean Corpuscular Volume 82, Mean Corpuscular Hemoglobin 28, Mean Corpuscular Hemoglobin Concent 34, Red Cell Distribution Width 13.5, Platelet Count 232, Mean Platelet Volume 10.8, Immature Granulocyte % (Auto) 0, Neutrophils (%) (Auto) 49, Lymphocytes (%) (Auto) 37, Monocytes (%) (Auto) 11, Eosinophils (%) (Auto) 2, Basophils (%) (Auto) 1, Neutrophils # (Auto) 3.4, Lymphocytes # (Auto) 2.6, Monocytes # (Auto) 0.7, Eosinophils # (Auto) 0.1, Basophils # (Auto) 0.0, Immature Granulocyte # (Auto) 0.0, Sodium Level 135, Potassium Level 2.8, Chloride Level 108, Carbon Dioxide Level 17, Anion Gap 10, Blood Urea Nitrogen 4, Creatinine 0.62, Estimat Glomerular Filtration Rate 137, BUN/Creatinine Ratio 6, Glucose Level 162, Calcium Level 7.7, Corrected Calcium 8.6, Phosphorus Level 1.8, Magnesium Level 1.7, Total Bilirubin 0.6, Aspartate Amino Transf (AST/SGOT) 11, Alanine Aminotransferase (ALT/SGPT) 11, Alkaline Phosphatase 113, Total Protein 5.2, Albumin 2.9, Beta-Hydroxybutyrate (Chem panel) 0.25 07/27/21 05:59: Glucometer 156 07/27/21 06:56: Glucometer 170 07/27/21 07:16: Glucometer 148 07/27/21 07:30: Sodium Level 135, Potassium Level 3.1, Chloride Level 108, Carbon Dioxide Level 19, Anion Gap 8, Blood Urea Nitrogen 3, Creatinine 0.62, Estimat Glomerular Filtration Rate 137, BUN/Creatinine Ratio 5, Glucose Level 192, Calcium Level 7.8 07/27/21 08:33: Glucometer 195 07/27/21 09:09: Glucometer 219 07/27/21 10:26: Glucometer 167 07/27/21 11:14: Glucometer 166 07/27/21 15:13: Glucometer 225 07/27/21 20:12: Glucometer 317 07/28/21 05:07: Sodium Level 135, Potassium Level 4.1, Chloride Level 102, Carbon Dioxide Level 21, Anion Gap 12, Blood Urea Nitrogen 6, Creatinine 0.65, Estimat Glomerular Filtration Rate 130, BUN/Creatinine Ratio 9, Glucose Level 120, Calcium Level 8.2, Corrected Calcium 9.1, Total Bilirubin 0.6, Aspartate Amino Transf (AST/SGOT) 25, Alanine Aminotransferase (ALT/SGPT) 15, Alkaline Phosphatase 131, Total Protein 5.8, Albumin 2.9 07/28/21 05:27: Glucometer 107 07/28/21 06:00: White Blood Count 5.8, Red Blood Count 4.40, Hemoglobin 12.5, Hematocrit 36, Mean Corpuscular Volume 83, Mean Corpuscular Hemoglobin 28, Mean Corpuscular Hemoglobin Concent 34, Red Cell Distribution Width 13.7, Platelet Count 230, Mean Platelet Volume 10.3, Immature Granulocyte % (Auto) 1, Neutrophils (%) (Auto) 43, Lymphocytes (%) (Auto) 43, Monocytes (%) (Auto) 12, Eosinophils (%) (Auto) 1, Basophils (%) (Auto) 1, Neutrophils # (Auto) 2.5, Lymphocytes # (Auto) 2.5, Monocytes # (Auto) 0.7, Eosinophils # (Auto) 0.1, Basophils # (Auto) 0.0, Immature Granulocyte # (Auto) 0.0 07/28/21 10:59: Glucometer 226 Discharge Home Medications: Active Scripts Active Advocate Pen Needle (Pen Needle, Diabetic) 1 Each Dis.needle Each [facility] Blood Glucose Monitoring (Blood-Glucose Meter) 1 Each Kit Each [facility] Advanced Glucose Meter (Blood-Glucose Meter) 1 Each Each Each [facility] Novolog Flexpen (Insulin Aspart) 300 Units/3 Ml Solution 7 Units SQ AC Basaglar Kwikpen U-100 (Insulin Glargine,Hum.rec.anlog) 100 Unit/1 Ml Insuln.pen 20 Unit SQ BID Reported Lisinopril 20 Mg Tablet 20 Mg PO DAILY LAST FILLED 04-11-2021 #60/60 DAY SUPPLY Metoprolol Succinate 50 Mg Tab.er.24h 50 Mg PO DAILY LAST FILLED 04-11-2021 #60/60 DAY SUPPLY Instructions to patient/family Please see electronic discharge instructions given to patient. CHAMP MOJICA DO Jul 28, 2021 11:38
[2021-07-28 11:50] VITALS: BP 123/70
--- NOTE | 2021-07-28 12:37 | Progress Note ---
KING ARTHUR 07/28/21 1237: Progress Note Pt is a 50yoHM with 2 yr hx of poorly managed T1DM who presents to the ED the evening of 07/25/2021 with complaint of nausea and vomiting that has gradually gotten worse over the last 2 wks. He was unsure of his last blood sugar level but in the ED he was 491, 7.18 pH, anion gap of 26, positive urine ketones with kussmaul respirations confirming a dx of DKA. DKA protocol initiated with transfer to ICU floor for intensive management and monitoring. Pt was transitioned to SC Insulin and moved down to medical floor 07/27/2021 and tolerating a normal ADA diet. 07/28/2021 - DC home today with diabetic education and prescription for insulin. SUMAYA MOJICA DO 07/29/21 0536: Supervisory-Addendum Brief Verification & Attestation Participated in pt care: history, MDM, physical Personally performed: exam, history, MDM, supervision of care Care discussed with: Medical Student Procedures: n/a Results interpretation: Verified all documentation Verification and Attestation of Medical Student E/M Service A medical student performed and documented this service in my presence. I reviewed and verified all information documented by the medical student and made modifications to such information, when appropriate. I personally performed the physical exam and medical decision making. Sumaya Mojica, Jul 29, 2021,05:36 KING ARTHUR Jul 28, 2021 12:37 SUMAYA MOJICA DO Jul 29, 2021 05:36
--- NOTE | 2021-07-28 13:33 | Discharge Summary ---
Discharge Summary Hospital Course Was the Problem List Reviewed?: Yes Problems/Dx: (1) DKA (diabetic ketoacidosis) Status: Acute Qualifiers: Qualified Codes: E11.10 - Type 2 diabetes mellitus with ketoacidosis without coma (2) Acute renal insufficiency Status: Acute Hospital Course Date of Admission: Jul 25, 2021 at 20:40 Admission Diagnosis : Family Physician/Provider: Rolly Urena Date of Discharge: 07/28/21 Discharge Diagnosis: DKA Hospital Course: Pt is a 50yoHM with 2 yr hx of poorly managed T1DM who presents to the ED the evening of 07/25/2021 with complaint of nausea and vomiting that has gradually gotten worse over the last 2 wks. He was unsure of his last blood sugar level but in the ED he was 491, 7.18 pH, anion gap of 26, positive urine ketones with kussmaul respirations confirming a dx of DKA. DKA protocol initiated with transfer to ICU floor for intensive management and monitoring. Pt was transitioned to SC Insulin and moved down to medical floor 07/27/2021 and tolerating a normal ADA diet. 07/28/2021 - DC home today with diabetic education and prescription for insulin. Labs and Pending Lab Test: Laboratory Tests 07/27/21 15:13: Glucometer 225H 07/27/21 20:12: Glucometer 317H 07/28/21 05:07: Sodium Level 135, Potassium Level 4.1, Chloride Level 102, Carbon Dioxide Level 21, Anion Gap 12, Blood Urea Nitrogen 6L, Creatinine 0.65, Estimat Glomerular Filtration Rate 130, BUN/Creatinine Ratio 9, Glucose Level 120H, Calcium Level 8.2L, Corrected Calcium 9.1, Total Bilirubin 0.6, Aspartate Amino Transf (AST/SGOT) 25, Alanine Aminotransferase (ALT/SGPT) 15, Alkaline Phosphatase 131, Total Protein 5.8L, Albumin 2.9L 07/28/21 05:27: Glucometer 107 07/28/21 06:00: White Blood Count 5.8, Red Blood Count 4.40, Hemoglobin 12.5L, Hematocrit 36L, Mean Corpuscular Volume 83, Mean Corpuscular Hemoglobin 28, Mean Corpuscular Hemoglobin Concent 34, Red Cell Distribution Width 13.7, Platelet Count 230, Mean Platelet Volume 10.3, Immature Granulocyte % (Auto) 1, Neutrophils (%) (Auto) 43, Lymphocytes (%) (Auto) 43, Monocytes (%) (Auto) 12, Eosinophils (%) (Auto) 1, Basophils (%) (Auto) 1, Neutrophils # (Auto) 2.5, Lymphocytes # (Auto) 2.5, Monocytes # (Auto) 0.7, Eosinophils # (Auto) 0.1, Basophils # (Auto) 0.0, Immature Granulocyte # (Auto) 0.0 07/28/21 10:59: Glucometer 226H Microbiology 07/25/21 MRSA Screen - Final, Complete MRSA not isolated 07/25/21 Blood Culture - Preliminary, Resulted No growth Home Meds Active Advocate Pen Needle (Pen Needle, Diabetic) 1 Each Dis.needle Each [facility] Blood Glucose Monitoring (Blood-Glucose Meter) 1 Each Kit Each [facility] Advanced Glucose Meter (Blood-Glucose Meter) 1 Each Each Each [facility] Novolog Flexpen (Insulin Aspart) 300 Units/3 Ml Solution 7 Units SQ AC Basaglar Kwikpen U-100 (Insulin Glargine,Hum.rec.anlog) 100 Unit/1 Ml Insuln.pen 20 Unit SQ BID Reported Lisinopril 20 Mg Tablet 20 Mg PO DAILY LAST FILLED 04-11-2021 #60/60 DAY SUPPLY Metoprolol Succinate 50 Mg Tab.er.24h 50 Mg PO DAILY LAST FILLED 04-11-2021 #60/60 DAY SUPPLY Assessment/Pt Instructions [facility] 1 week Discharge Planning: <30 minutes discharge planning Discharge Instructions Discharge Diet: ADA Diet Discharge Physical Examination Vital Signs Vital Signs Date Time Temp Pulse Resp B/P (MAP) Pulse Ox O2 Delivery O2 Flow Rate FiO2 07/28/21 11:50 36.5 84 20 123/70 (87) 98 Room Air General Appearance: No Apparent Distress, WD/WN, Chronically ill Allergies: Coded Allergies: No Known Drug Allergies (Unverified , 12/02/19) Discharge Summary Date of Admission Jul 25, 2021 at 20:40 Date of Discharge Discharge Date: Jul 28, 2021 Admission Diagnosis DKA Plan: ICU care Insulin drip Discharge Diagnosis Discharge on insulin tomorrow CHAMP MOJICA DO Jul 28, 2021 13:33
== END 2021-07-28 13:25 | disposition home or self-care (01) | DRG 638 ==
LOC: EDUNIT# 18:30 → ER 18:33 → ICU 20:40 → 4TH 07-27 13:36
PROVIDERS: ADMIT Internal Medicine; ATTEND Internal Medicine
DX: E11.10 Type 2 diabetes mellitus with ketoacidosis without coma (principal); E87.1 Hypo-osmolality and hyponatremia; N28.9 Disorder of kidney and ureter, unspecified; I10 Essential (primary) hypertension; E86.0 Dehydration; Z20.822 Contact with and (suspected) exposure to COVID-19; Z79.84 Long term (current) use of oral hypoglycemic drugs; Z79.4 Long term (current) use of insulin
CPT/HCPCS: 36415; 71045; 80048; 80053; 80306; 80320; 81000; 82010; 82150; 82805; 82947; 83036; 83605; 83690; 83735; 84100; 84145; 85025; 87040; 87081; 87636; 93005; 93041; 96361; 96374; 96375

== ENCOUNTER 2021-10-11 22:58 | Inpatient (IN) | payer OTHER ==
[~2021-10-11] VITALS: Ht 185 cm; Wt 75.0 kg
[~2021-10-11 22:58] MED LIST changes: +BLOO-1350 MC; +INSU100I14 SQ; +INSU100I34 SQ; +LISI20TA26 PO; +METF-399 PO; +METO50TA7 PO; +PEN-53 MC; +[UNRECOGNIZED DRUG - CODE] MC
[2021-10-11 23:05] VITALS: BP 128/63
[2021-10-11] MEDS ORDERED: NS IV 1000 ML 1,000 ML IV SCH (23:15)
[2021-10-11 23:30] LABS: BASOPHILS % (AUTO) 1 % (0-10); EOSINOPHILS % (AUTO) 0 % (0-10); HEMATOCRIT 40 % (40-54); HEMOGLOBIN 13.7 g/dL (13.3-17.7); LYMPHOCYTES # (AUTO) 0.5 10^3/uL (1.0-4.0); LYMPHOCYTES % (AUTO) 7 % (12-44); MEAN CORPUSCULAR HEMOGLOBIN 29 pg (25-34); MEAN CORPUSCULAR HGB CONC 34 g/dL (32-36); MEAN CORPUSCULAR VOLUME 86 fL (80-99); MEAN PLATELET VOLUME 10.6 fL (9.0-12.2); MONOCYTES # (AUTO) 0.6 10^3/uL (0.0-1.0); MONOCYTES % (AUTO) 8 % (0-12); NEUTROPHILS % (AUTO) 81 % (42-75); PLATELET COUNT 301 10^3/uL (130-400); WHITE BLOOD COUNT 7.4 10^3/uL (4.3-11.0)
[2021-10-11 23:38] LABS: BILIRUBIN,URINE NEGATIVE (NEGATIVE); CLARITY,URINE CLEAR; COLOR,URINE YELLOW; GLUCOSE, URINE (UA) 3+ (NEGATIVE); KETONES,URINE 3+ (NEGATIVE); LEUKOCYTE ESTERASE ,URINE NEGATIVE (NEGATIVE); NITRITE,URINE NEGATIVE (NEGATIVE); PROTEIN,URINE TRACE (NEGATIVE)
--- NOTE | 2021-10-11 23:40 | ED General ---
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) Exam Limitations: Language Barrier History of Present Illness Date Seen by Provider: Oct 11, 2021 Time Seen by Provider: 23:06 Initial Comments PT ARRIVES VIA POV FROM HOME MULTIPLE COMPLAINTS PT STATES HE BEGAN GETTING SICK TODAY--WORKS AT [employer] C/O COUGH AND CONGESTION C/O SORE THROAT C/O SUBJECTIVE FEVER HAS BEEN A LITTLE SHORT OF BREATH NO CHEST PAIN NO GI SYMTPOMS NO LOSS OF TASTE OR SMELL NO HEADACHE NO BODY ACHES PT HAS BEEN ABLE TO EAT AND DRINK NORMALLY TODAY PT IS INSULIN DEPENDENT DIABETIC AND BLOOD GLUCOSE WAS 600 TONIGHT, SO CAME TO ER IS UNCLEAR HOW LONG HIS BLOOD SUGAR HAS BEEN ELEVATED, AND PT IS NOT ABLE TO STATE WHAT HIS BLOOD SUGAR NORMALLY IS, 0R HOW OFTEN HE CHECKS IT. PT TOOK NORMAL DOSE OF INSULIN EARLIER TODAY, HAS NOT TAKEN ANY ADDITIONAL INSULIN CLAIMS HE HAS NOT MISSED DOSES OF INSULIN IS UNCLEAR WHEN HE LAST SAW A DR, OR IF HE HAS HAD ANY MEDICATION CHANGES TODAY HE STATES INSULIN IS THE ONLY MEDICATION HE IS TAKING ( ACCORDING TO OLD CHART IN JULY, PT WAS ALSO SUPPOSED TO BE TAKING METFORMIN AND A BLOOD PRESSURE MEDICATION) PT HAS HAD 2 COVID-19 VACCINES, BUT HAS NOT HAD BOOSTER VACCINE HAS NOT HAD FLU VACCINE NO KNOWN SICK CONTACTS PT HAS HAD 2 PRIOR VISITS HERE SINCE 11/2019--BOTH FOR DKA. PT REQUIRED INTUBATION 11/2019 DUE TO SEVERE ACIDOSIS AND WAS DX WITH DIABETES AT THAT TIME. 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 Allergies and Home Medications Allergies Coded Allergies: No Known Drug Allergies (Unverified , 12/02/19) Patient Home Medication List Home Medication List Reviewed: Yes Blood-Glucose Meter (Advanced Glucose Meter) 1 Each Each, EACH [facility], (DME) Prescribed by: CHAMP MOJICA on 07/28/21 1138 Blood-Glucose Meter (Blood Glucose Monitoring) 1 Each Kit, EACH [facility], (DME) Prescribed by: CHAMP MOJICA on 07/28/21 1138 Insulin Aspart (Novolog Flexpen) 300 Units/3 Ml Solution, 7 UNITS SQ AC Prescribed by: CHAMP MOJICA on 07/28/21 1138 Insulin Glargine,Hum.rec.anlog (Basaglar Kwikpen U-100) 100 Unit/1 Ml Insul n.pen, 20 UNIT SQ BID Prescribed by: CHAMP MOJICA on 07/28/21 1138 Lisinopril (Lisinopril) 20 Mg Tablet, 20 MG PO DAILY, (Reported) Entered as Reported by: ISHA LOPEZ on 07/26/21 1632 Metoprolol Succinate (Metoprolol Succinate) 50 Mg Tab.er.24h, 50 MG PO DAILY, (Reported) Entered as Reported by: ISHA LOPEZ on 07/26/21 1632 Pen Needle, Diabetic (Advocate Pen Needle) 1 Each Dis.needle, EACH [facility], (DME) Prescribed by: CHAMP MOJICA on 07/28/21 1138 Review of Systems Review of Systems Constitutional: see HPI, fever EENTM: see HPI, nose congestion, throat pain Respiratory: see HPI, cough, short of breath Cardiovascular: no symptoms reported Gastrointestinal: no symptoms reported; No abdominal pain, No diarrhea, No nausea, No vomiting Genitourinary: no symptoms reported Musculoskeletal: no symptoms reported Skin: no symptoms reported Psychiatric/Neurological: No Symptoms Reported Hematologic/Lymphatic: No Symptoms Reported Immunological/Allergic: no symptoms reported Past Xstlmga-Hsekvu-Jviydb Hx Patient Social History Tobacco Use?: No Substance use?: No Alcohol Use?: No Seasonal Allergies Seasonal Allergies: No Past Medical History Surgery/Hospitalization HX: DM HTN Surgeries: No Respiratory: No (INTUBATED 11/2019 WITH DKA) Cardiac: Yes Hypertension Neurological: No Genitourinary: No Gastrointestinal: No Musculoskeletal: No Endocrine: Yes (DM DX 11/2019 AND PT WAS IN DKA AND REQUIRED INTUBATION D/T ACIDOSIS) Diabetes, Insulin dep HEENT: No Cancer: No Psychosocial: No Integumentary: No Blood Disorders: No Family Medical History No Pertinent Family Hx Physical Exam Vital Signs Vital Signs - First Documented Capillary Refill : Height, Weight, BMI Height: '" Weight: lbs. oz. kg; 24.00 BMI Method: General Appearance: No Apparent Distress, WD/WN, Thin, Other (DOES NOT APPEAR TO BE IN ANY DISCOMFORT OR DISTRESS, IS SLIGHTLY LETHARGIC, BUT NO HYPERVENTILATION OR KUSSMAUL'S BREATHING. WALKS IN ON HIS OWN WITHOUT DIFFICULTY. 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 Norm as Tested Skin: Normal Color (PT IS ), Warm/Dry Focused Exam Sepsis Stage: Ruled Out Reason for ruling out sepsis: DOES NOT MEET CRITERIA Possible Source: Pulmonary Lactate Level 10/11/21 23:17: Lactic Acid Level 0.83 Time of Focused Exam: 00:01 Respiratory: Normal Breath Sounds, No Accessory Muscle Use, No Respiratory Distress Cardiovascular: Regular Rate, Rhythm, No Edema, No JVD, No Murmur, Normal Peripheral Pulses Capillary Refill: Less Than 3 Seconds Skin: normal color (PT IS ), warm/dry Lactic Acid Level Laboratory Tests Test 10/11/21 23:17 Lactic Acid Level 0.83 MMOL/L (0.50-2.00) Within 3hrs of presentation: Admin fluids, Blood cultures prior to ABX's, Focus exam, Lactate level, Other (TAMIFLU) Procedures/Interventions Date of ETT Placement: Dec 02, 2019 Time of ETT Placement: 827 Progress/Results/Core Measures Suspected Sepsis SIRS Temperature: Pulse: Respiratory Rate: Laboratory Tests 10/11/21 23:17: White Blood Count 7.4 Blood Pressure / Mean: 10/11/21 23:17: Lactic Acid Level 0.83 Laboratory Tests 10/11/21 23:17: Creatinine 1.27, Platelet Count 301, Total Bilirubin 0.4 Results/Orders Lab Results Laboratory Tests Test 10/11/21 23:08 10/11/21 23:13 10/11/21 23:17 10/11/21 23:32 Range/Units Glucometer 591 *H 70-110 MG/DL SARS-CoV-2 RNA (RT-PCR) Detected Negative White Blood Count 7.4 4.3-11.0 10^3/uL Red Blood Count 4.70 4.30-5.52 10^6/uL Hemoglobin 13.7 13.3-17.7 g/dL Hematocrit 40 40-54 % Mean Corpuscular Volume 86 80-99 fL Mean Corpuscular Hemoglobin 29 25-34 pg Mean Corpuscular Hemoglobin Concent 34 32-36 g/dL Red Cell Distribution Width 13.5 10.0-14.5 % Platelet Count 301 130-400 10^3/uL Mean Platelet Volume 10.6 9.0-12.2 fL Immature Granulocyte % (Auto) 3 % Neutrophils (%) (Auto) 81 H 42-75 % Lymphocytes (%) (Auto) 7 L 12-44 % Monocytes (%) (Auto) 8 0-12 % Eosinophils (%) (Auto) 0 0-10 % Basophils (%) (Auto) 1 0-10 % Neutrophils # (Auto) 6.0 1.8-7.8 10^3/uL Lymphocytes # (Auto) 0.5 L 1.0-4.0 10^3/uL Monocytes # (Auto) 0.6 0.0-1.0 10^3/uL Eosinophils # (Auto) 0.0 0.0-0.3 10^3/uL Basophils # (Auto) 0.0 0.0-0.1 10^3/uL Immature Granulocyte # (Auto) 0.2 H 0.0-0.1 10^3/uL Neutrophils % (Manual) 83 % Lymphocytes % (Manual) 6 % Monocytes % (Manual) 5 % Band Neutrophils 2 % Atypical Lymphocytes 1 % Reactive Lymphocytes 2 % Blast Cells 1 % Blood Morphology Comment NORMAL Erythrocyte Sedimentation Rate 42 H 0-30 MM/HR D-Dimer 0.61 H 0.00-0.49 UG/ML Sodium Level 124 *L 135-145 MMOL/L Potassium Level 4.3 3.6-5.0 MMOL/L Chloride Level 98 98-107 MMOL/L Carbon Dioxide Level < 5 *L 21-32 MMOL/L Anion Gap 21 H 5-14 MMOL/L Blood Urea Nitrogen 20 H 7-18 MG/DL Creatinine 1.27 0.60-1.30 MG/DL Estimat Glomerular Filtration Rate 69 BUN/Creatinine Ratio 16 Glucose Level 652 *H 70-105 MG/DL Lactic Acid Level 0.83 0.50-2.00 MMOL/L Calcium Level 8.3 L 8.5-10.1 MG/DL Corrected Calcium 8.5 8.5-10.1 MG/DL Magnesium Level 2.0 1.6-2.4 MG/DL Total Bilirubin 0.4 0.1-1.0 MG/DL Aspartate Amino Transf (AST/SGOT) 31 5-34 U/L Alanine Aminotransferase (ALT/SGPT) 34 0-55 U/L Alkaline Phosphatase 225 H 40-136 U/L Lactate Dehydrogenase 254 H 125-220 U/L Total Creatine Kinase 256 H 30-200 U/L Creatine Kinase MB 3.8 <6.6 NG/ML Troponin I < 0.028 <0.028 NG/ML C-Reactive Protein High Sensitivity 2.96 H 0.00-0.50 MG/DL B-Type Natriuretic Peptide < 10.0 <100.0 PG/ML Total Protein 7.3 6.4-8.2 GM/DL Albumin 3.8 3.2-4.5 GM/DL Beta-Hydroxybutyrate (Chem panel) 8.32 H 0.00-0.27 MMOL/L Procalcitonin 0.13 H <0.10 NG/ML Influenza Type A Antigen POSITIVE H NEGATIVE Influenza Type B Antigen NEGATIVE NEGATIVE Urine Color YELLOW Urine Clarity CLEAR Urine pH 6.0 5-9 Urine Specific [place] 1.025 H 1.016-1.022 Urine Protein TRACE H NEGATIVE Urine Glucose (UA) 3+ H NEGATIVE Urine Ketones 3+ H NEGATIVE Urine Nitrite NEGATIVE NEGATIVE Urine Bilirubin NEGATIVE NEGATIVE Urine Urobilinogen 0.2 < = 1.0 MG/DL Urine Leukocyte Esterase NEGATIVE NEGATIVE Urine RBC (Auto) 2+ H NEGATIVE Urine RBC 2-5 H /HPF Urine WBC 0-2 /HPF Urine Squamous Epithelial Cells NONE /HPF Urine Crystals NONE /LPF Urine Bacteria TRACE /HPF Urine Casts PRESENT /LPF Urine Hyaline Casts 0-2 H /LPF Urine Red Blood Cell Casts RARE H /LPF Urine Mucus SMALL H /LPF Urine Culture Indicated CULTURE PENDING Test 10/11/21 23:45 Range/Units My Orders Orders - GERALDINE DAS DO Accucheck Stat ONCE (10/11/21 23:13) Ed Iv/Invasive Line Start (10/11/21 23:13) Monitor-Rhythm Ecg Trace Only (10/11/21 23:13) Bnp Samia (10/11/21 23:13) Cbc With Automated Diff (10/11/21 23:13) Comprehensive Metabolic Panel (10/11/21 23:13) Creatine Kinase (10/11/21 23:13) Creatine Kinase Mb (10/11/21 23:13) Ed Iv/Invasive Line Start (10/11/21 23:13) Ns Iv 1000 Ml (Sodium Chloride 0.9%) (10/11/21 23:15) Magnesium (10/11/21 23:13) Troponin I [place] (10/11/21 23:13) Fibrin Degradation Products (10/11/21 23:13) Procalcitonin (Pct) (10/11/21 23:13) Hs C Reactive Protein (10/11/21 23:13) Erythrocyte Sedimentation Rate (10/11/21 23:13) LDH (10/11/21 23:13) Ekg Tracing (10/11/21 23:13) Chest 1 View, Ap/Pa Only (10/11/21 23:13) Covid 19 Inhouse Test (10/11/21 23:13) Isolation Central Supply Req (10/11/21 23:13) Lactic Acid Analyzer (10/11/21 23:16) Blood Culture (10/11/21 23:16) Urinalysis (10/11/21 23:16) Urine Culture (10/11/21 23:16) Vital Signs Adult Sepsis Patie Q15M (10/11/21 23:16) Remove Rings In Anticipation O (10/11/21 23:16) Beta Hydroxybutyrate (10/11/21 23:16) Hemoglobin A1c (10/11/21 23:16) Influenza A & B Antigens (10/11/21 23:17) Manual Differential (10/11/21 23:17) Oseltamivir 75 Mg Capsule (Tamiflu 75 (10/12/21 00:00) Insulin (Regular) Human (Novolin R (Per (10/12/21 00:15) Ed Iv/Invasive Line Start (10/12/21 00:04) Ns Iv 1000 Ml (Sodium Chloride 0.9%) (10/12/21 00:15) Arterial Blood Gas (10/12/21 00:04) Medications Given in ED Current Medications Medications Dose Ordered Sig/Roberth Route Start Time Stop Time Status Last Admin Dose Admin Oseltamivir Phosphate 75 mg ONCE ONCE PO 10/12/21 00:00 10/12/21 00:01 DC 10/12/21 00:29 75 MG Vital Signs/I&O 10/11/21 10/11/21 23:05 23:05 Temp 37.4 Pulse 86 Resp 18 B/P (MAP) 128/63 (84) Pulse Ox 98 O2 Delivery Room Air Room Air Capillary Refill : Progress Note : Progress Note PPE WORN COVID AND FLU TESTING DONE INFLUENZA A +--GIVEN A DOSE OF TAMIFLU GIVEN IV FLUIDS, INSULIN AND BICARB SEPSIS PROTOCOL INITIATED NO COUGH NO DYSPNEA NO HYPOXIA BLOOD GLUCOSE PRIOR TO TRANSFER TO THE FLOOR IS 410 NO DETERIORATION IN PT'S CONDITION DURING ER STAY Diagnostic Imaging Comments CXR--NO ACUTE PROCESS, PENDING RADIOLOGIST REVIEW Reviewed: Reviewed by Me Departure Communication (Admissions) 0004--SPOKE WITH DR. JIMENEZ, ACCEPTS PT FOR ADMIT.NO ADDITIONAL RECOMMENDATIONS 0008--SPOKE WITH DR. WEISS WITH E-ICU, REPORT GIVEN. NO ADDITIONAL RECOMMEND ATIONS Impression Primary Impression: DKA (diabetic ketoacidosis) Additional Impressions: Influenza A Uncontrolled type 2 diabetes mellitus COVID-19 virus infection Hyponatremia Disposition: ADMITTED INPATIENT Condition: Stable Admissions Decision to Admit Reason: Admit from ER (General) Decision to Admit/Date: Oct 12, 2021 Time/Decision to Admit Time: 00:05 Departure-Patient Inst. Referrals: [facility] (PCP) Primary Care Physician KING MÁRQUEZ (Family) Primary Care Physician GERALDINE DAS DO Oct 11, 2021 23:40
[2021-10-11 23:48] LABS: ALBUMIN 3.8 GM/DL (3.2-4.5); CHLORIDE 98 MMOL/L (98-107); POTASSIUM 4.3 MMOL/L (3.6-5.0)
[2021-10-11 23:49] LABS: CALCIUM 8.3 MG/DL (8.5-10.1)
[2021-10-11 23:50] LABS: TOTAL PROTEIN 7.3 GM/DL (6.4-8.2)
[2021-10-11 23:52] LABS: BILIRUBIN,TOTAL 0.4 MG/DL (0.1-1.0)
[2021-10-11 23:53] LABS: BACTERIA,URINE TRACE /HPF; HYALINE CASTS, URINE 0-2 /LPF; RED BLOOD CELL CASTS,URINE RARE /LPF; WBC,URINE 0-2 /HPF
[2021-10-11 23:54] LABS: ALKALINE PHOSPHATASE 225 U/L (40-136); CREATININE SERUM 1.27 MG/DL (0.60-1.30); GFR ESTIMATED 69
[2021-10-11 23:55] LABS: BUN/CREATININE RATIO 16
[2021-10-11 23:57] LABS: ALANINE AMINOTRANSFERASE 34 U/L (0-55)
[2021-10-11 23:58] LABS: CREATINE KINASE 256 U/L (30-200)
[2021-10-12] MEDS ORDERED: OSELTAMIVIR 75 MG (TAMIFLU) CAPSULE PO ONE
[2021-10-12 00:01] LABS: SODIUM 124 MMOL/L (135-145)
[2021-10-12 00:05] LABS: CREATINE KINASE MB 3.8 NG/ML (<6.6)
[2021-10-12 00:09] LABS: ATYPICAL LYMPHOCYTES 1 %; BAND NEUTROPHILS 2 %; BLAST CELLS 1 %; LYMPHOCYTES % (MANUAL) 6 %; MONOCYTES % (MANUAL) 5 %; NEUTROPHILS % (MANUAL) 83 %; RBC MORPH NORMAL; REACTIVE LYMPHOCYTES 2 %
[2021-10-12 00:14] LABS: ERYTHROCYTE SEDIMENTATION RATE 42 MM/HR (0-30)
[2021-10-12] MEDS ORDERED: NS IV 1000 ML 1,000 ML IV SCH ×2 (00:15→02:15)
[2021-10-12] MEDS ORDERED: SODIUM BICARB 8.4% 50 MEQ/50 ML (ABBOTT) SYR IV ONE (00:15)
[2021-10-12] MEDS ORDERED: inSUlin (REGULAR) HUMAN 1 UNIT/0.01 ML (CHARGE PER UNIT) IV ONE (00:15)
[2021-10-12 00:20] LABS: CARBON DIOXIDE < 5 MMOL/L (21-32)
[2021-10-12 00:21] LABS: GLUCOSE 652 MG/DL (70-105)
[2021-10-12 01:22] LABS: ABG BASE EXCESS -21.9 MMOL/L (-2.5-2.5); ABG OXYGEN SATURATION 99 % (94-100); ABG PO2 106 MMHG (79-93)
[2021-10-12 01:30] LABS: ABG PCO2 14 MMHG (35-45); ABG PH 7.19 (7.37-7.43)
[2021-10-12 01:31] LABS: ABG TCO2 5.5 MMOL/L (21.0-31.0); INSPIRED O2 RA; PATIENT TEMP 37.4; VENTILATOR NO
[2021-10-12] MEDS ORDERED: D5 1/2 NS 1000 ML IV SOLUTION 1,000 ML IV ONE (02:10)
[2021-10-12] MEDS ORDERED: 1/2 NS IV SOLUTION 1,000 ML IV ONE (02:10)
[2021-10-12] MEDS ORDERED: POTASSIUM CL 10MEQ/50ML IVPB 150 ML IV ONE (02:10)
[2021-10-12] MEDS ORDERED: NS IV 1000 ML 1,000 ML ONE (02:10)
[2021-10-12] MEDS ORDERED: ONDANSETRON 4 MG/2 ML (SDV) Z0FRAN IV PRN (02:15)
[2021-10-12] MEDS ORDERED: IBUPROFEN 800 MG (MOTRIN) TAB PO PRN (02:15)
[2021-10-12] MEDS ORDERED: ACETAMINOPHEN 500 MG TAB (TYLENOL) PO PRN (02:15)
[2021-10-12] MEDS: POTASSIUM CL 10MEQ/50ML IVPB 50 ML IV SCH ×11 (02:45→23:59)
[2021-10-12] MEDS: 1/2 NS IV SOLUTION 1,000 ML IV SCH ×6 (03:41→23:05)
[2021-10-12 03:55] LABS: CHLORIDE 110 MMOL/L (98-107); POTASSIUM 3.1 MMOL/L (3.6-5.0); SODIUM 132 MMOL/L (135-145)
[2021-10-12 03:56] LABS: CALCIUM 7.2 MG/DL (8.5-10.1)
[2021-10-12 03:57] LABS: GLUCOSE 311 MG/DL (70-105)
[2021-10-12 04:00] LABS: CREATININE SERUM 0.81 MG/DL (0.60-1.30); GFR ESTIMATED 107
[2021-10-12 04:01] LABS: BUN/CREATININE RATIO 19
[2021-10-12 04:02] LABS: CARBON DIOXIDE < 5 MMOL/L (21-32)
[2021-10-12] MEDS: MAGNESIUM 1 GM/100 ML IVPB 100 ML IV SCH (05:29)
[2021-10-12] MEDS: KCL 20 MEQ TAB (K-DUR) PO SCH (05:29)
[2021-10-12] MEDS: D5 1/2 NS 1000 ML IV SOLUTION 1,000 ML IV SCH ×3 (05:39→22:12)
[2021-10-12 05:59] LABS: ALBUMIN 2.8 GM/DL (3.2-4.5); POTASSIUM 3.4 MMOL/L (3.6-5.0)
[2021-10-12 06:01] LABS: CALCIUM 7.3 MG/DL (8.5-10.1)
[2021-10-12 06:02] LABS: TOTAL PROTEIN 5.3 GM/DL (6.4-8.2)
[2021-10-12 06:04] LABS: BILIRUBIN,TOTAL 0.3 MG/DL (0.1-1.0)
[2021-10-12 06:05] LABS: CREATININE SERUM 0.76 MG/DL (0.60-1.30); PHOSPHORUS 1.6 MG/DL (2.3-4.7)
[2021-10-12 06:08] LABS: MAGNESIUM 1.8 MG/DL (1.6-2.4)
[2021-10-12 06:26] LABS: BASOPHILS % (AUTO) 0 % (0-10); EOSINOPHILS % (AUTO) 0 % (0-10); HEMATOCRIT 34 % (40-54); HEMOGLOBIN 11.9 g/dL (13.3-17.7); LYMPHOCYTES # (AUTO) 0.9 10^3/uL (1.0-4.0); LYMPHOCYTES % (AUTO) 15 % (12-44); MEAN CORPUSCULAR HEMOGLOBIN 29 pg (25-34); MEAN CORPUSCULAR HGB CONC 35 g/dL (32-36); MEAN CORPUSCULAR VOLUME 84 fL (80-99); MEAN PLATELET VOLUME 10.2 fL (9.0-12.2); MONOCYTES # (AUTO) 0.5 10^3/uL (0.0-1.0); MONOCYTES % (AUTO) 8 % (0-12); NEUTROPHILS # (AUTO) 4.1 10^3/uL (1.8-7.8); NEUTROPHILS % (AUTO) 74 % (42-75); PLATELET COUNT 239 10^3/uL (130-400); WHITE BLOOD COUNT 5.6 10^3/uL (4.3-11.0)
--- NOTE | 2021-10-12 07:09 | Diagnostic Imaging Report ---
Indication: Cough, congestion Comparison: 07/25/2021 Findings: Single view of the chest demonstrates clear lungs bilaterally. The heart is normal. There is no pneumothorax but osseous structures normal. Impression: Negative chest Dictated by: Dictated on workstation # [id number]
[2021-10-12] MEDS: OSELTAMIVIR 75 MG (TAMIFLU) CAPSULE PO SCH ×2 (09:53→21:03)
[2021-10-12 10:30] LABS: CALCIUM 7.5 MG/DL (8.5-10.1); CREATININE SERUM 0.8 MG/DL (0.60-1.30); POTASSIUM 3.4 MMOL/L (3.6-5.0)
[2021-10-12] MEDS ORDERED: SODIUM PHOSPHATE INJ 30 MM in NS (IVPB) 250 ML INJ ONE (11:15)
[2021-10-12] MEDS: FAMOTIDINE 20MG/2ML IV (PEPCID) IVP SCH (13:10)
[2021-10-12] MEDS: ENOXAPARIN 40 MG/0.4 ML (LOVENOX) SYR SC SCH (13:11)
--- NOTE | 2021-10-12 14:29 | Tele-ICU Consult ---
History of Present Illness History of Present Illness Date Seen by Provider: Oct 12, 2021 Time Seen by Provider: 14:28 Date of Admission Allergies and Home Medications Allergies Coded Allergies: No Known Drug Allergies (Unverified , 12/02/19) Home Medications Insulin Aspart 300 Units/3 Ml Solution, 7 UNITS SQ AC Prescribed by: CHAMP MOJICA on 07/28/21 1138 Insulin Glargine,Hum.rec.anlog 100 Unit/1 Ml Insuln.pen, 20 UNIT SQ BID Prescribed by: CHAMP MOJICA on 07/28/21 1138 Lisinopril 20 Mg Tablet, 20 MG PO DAILY, (Reported) LAST FILLED 04-11-2021 #60/60 DAY SUPPLY Metoprolol Succinate 50 Mg Tab.er.24h, 50 MG PO DAILY, (Reported) LAST FILLED 04-11-2021 #60/60 DAY SUPPLY Past Medical/Social/Family Hx Patient Social History Tobacco Use?: No Use of E-Cig and/or Vaping dev: No Substance use?: No Alcohol Use?: No Pt stated abuse/neglect: No Immunizations Up To Date Influenza Vaccine Up-to-Date: Yes; Up-to-Date Current Status Advance Directives: No Communicates: Verbally Primary Language: Zambian Preferred Spoken Language: Zambian Is interpretation needed?: Yes Implanted or Applied Medical D: None Review of Systems Constitutional: see HPI Focused Exam Lactate Level 10/11/21 23:17: Lactic Acid Level 0.83 Height, Weight, BMI Height: '" Weight: lbs. oz. kg; 23.00 BMI Method: Time of Focused Exam: 00:01 Exam Exam Patient acknowledged, consented, and participated in this virtual visit which was conducted using real time audio/video Vital Signs Date Time Temp Pulse Resp B/P (MAP) Pulse Ox O2 Delivery O2 Flow Rate FiO2 10/12/21 13:00 87 10/12/21 11:44 36.8 10/12/21 10:00 73 11 104/62 99 Nasal Cannula 3.00 10/12/21 09:00 81 103/56 98 Nasal Cannula 3.00 10/12/21 08:34 98 Room Air 10/12/21 08:30 Nasal Cannula 3.00 10/12/21 08:00 75 117/66 97 Room Air 10/12/21 08:00 36.4 10/12/21 07:00 75 2/3/22 07:00 69 105/57 99 Room Air 10/12/21 06:00 75 12 96/54 97 Room Air 10/12/21 05:00 73 12 100/56 98 Room Air 10/12/21 04:00 99 Room Air 10/12/21 04:00 70 12 99/54 98 Room Air 10/12/21 03:30 73 10 101/50 98 Room Air 10/12/21 03:00 80 11 103/56 98 Room Air 10/12/21 02:45 74 12 91/56 99 Room Air 10/12/21 02:30 77 12 100/56 98 Room Air 10/12/21 02:15 87 12 104/70 99 Room Air 10/12/21 02:00 99 Room Air 10/12/21 02:00 90 12 114/75 99 Room Air 10/12/21 01:57 36.4 89 18 110/69 99 Room Air 10/12/21 01:51 90 10/11/21 23:05 Room Air 10/11/21 23:05 37.4 86 18 128/63 (84) 98 Room Air I & O 10/12/21 07:00 Intake Total 2300 ml Output Total 900 ml Balance 1400 ml Height & Weight Height: '" Weight: lbs. oz. kg; 23.00 BMI Method: General Appearance: No Apparent Distress, WD/WN, Thin, Other (DOES NOT APPEAR TO BE IN ANY DISCOMFORT OR DISTRESS, IS SLIGHTLY LETHARGIC, BUT NO HYPERVENTILATION OR KUSSMAUL'S BREATHING. WALKS IN ON HIS OWN WITHOUT DIFFICULTY. 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 ROS as per chart and RN report Now in ICU, hemodynamically stable Video assessment done using teleICU camera, rest of exam as per RN Discussed with RN. Consultants: Hospital course: 10/11- DKA , FLU A , Covid+ A/P DKA -due to new viral infection *Insulin drip continue to monitor for resolution of acidosis, AG and electrolytes. Continue hydration. Influenza A - tamiflu Coronavirus-2/COVID + ( DX 10/11 HAS HAD 2 COVID-19 VACCINES, BUT HAS NOT HAD BOOSTER- ? carrier vs true infection - not hypoxic , ? rmdesivir candidate -Hypercoagulable state , thrombotic microangiopathy, DDIMER= 0.6on 10/11-> lovenox ppx dose , follow D dimer Monitor for superimposed bact PNA -PCT0.13 , OFF abx Lines : periph (Central Line Necessity Reviewed) Mccarty: void OG: Nutrition: Analgesia: Anxiety/ delirium VTE Prophylaxis: lovenox 40 Stress Ulcer Prophylaxis: h2bl Plans in collaboration with bedside consultants and IM MDs. Discussed with RN to reach out if any questions or concerns A total of 33 minutes of critical care time was devoted to this patient today, required to treat and/or prevent further deterioration of critical care condition ( as above ) . BRIGETTE LOVE MD Oct 12, 2021 14:29
[2021-10-12 14:39] LABS: CALCIUM 7.3 MG/DL (8.5-10.1)
[2021-10-12 14:43] LABS: CREATININE SERUM 0.73 MG/DL (0.60-1.30)
--- NOTE | 2021-10-12 14:44 | History & Physical ---
HPI History of Present Illness: 50 yo male came to ER due to high blood sugar. He states his blood sugar usually runs between 200 and 300 and he takes long acting insulin twice per day, 20 units each and 6 units with meals of short acting. He denies being out of insulin. He did have some upper respiratory symptoms yesterday of sore throat, mild cough which are already seeming better today. On reflection, he may have had symptoms for 2-3 days. He denies vomiting, diarrhea. He has been admitted with DKA before, was diagnosed with diabetes about 2 years ago, states he was 240 lbs before he was diagnosed. He has no family history of diabetes. Note of left thumb purple/bruised subungual, he states it was smashed in a door at work several days ago. 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 Patients Allergies have been reviewed. Allergies Coded Allergies: No Known Drug Allergies (Unverified , 12/02/19) LRP-Hahikp-Gghtjm Hx Patient Social History 2nd Hand Smoke Exposure: No Recent Hopitalizations: No Alcohol Use?: No Have you traveled recently?: No Immunizations Up To Date Influenza Vaccine Up-to-Date: Yes; Up-to-Date First/Initial COVID19 Vaccinat: 11/17/2020 Second COVID19 Vaccination [place]: 12/21/2020 COVID19 Vaccine Toll Patrolman: Moderna Past Medical History PMHx: DM SurgHx: Denies Family Medical History Significant Family History: No Pertinent Family Hx Review of Systems ([facility]) Constitutional: No fever Respiratory: cough; No short of breath Cardiovascular: No chest pain Gastrointestinal: No abdominal pain, No constipation, No diarrhea, No nausea, No vomiting Genitourinary: No dysuria Musculoskeletal: No joint pain Skin: No rash Reviewed Test Results Reviewed Test Results Lab Laboratory Tests Test 10/11/21 23:08 10/11/21 23:13 10/11/21 23:17 10/11/21 23:32 Range/Units Glucometer 591 *H 70-110 MG/DL SARS-CoV-2 RNA (RT-PCR) Detected Negative White Blood Count 7.4 4.3-11.0 10^3/uL Red Blood Count 4.70 4.30-5.52 10^6/uL Hemoglobin 13.7 13.3-17.7 g/dL Hematocrit 40 40-54 % Mean Corpuscular Volume 86 80-99 fL Mean Corpuscular Hemoglobin 29 25-34 pg Mean Corpuscular Hemoglobin Concent 34 32-36 g/dL Red Cell Distribution Width 13.5 10.0-14.5 % Platelet Count 301 130-400 10^3/uL Mean Platelet Volume 10.6 9.0-12.2 fL Immature Granulocyte % (Auto) 3 % Neutrophils (%) (Auto) 81 H 42-75 % Lymphocytes (%) (Auto) 7 L 12-44 % Monocytes (%) (Auto) 8 0-12 % Eosinophils (%) (Auto) 0 0-10 % Basophils (%) (Auto) 1 0-10 % Neutrophils # (Auto) 6.0 1.8-7.8 10^3/uL Lymphocytes # (Auto) 0.5 L 1.0-4.0 10^3/uL Monocytes # (Auto) 0.6 0.0-1.0 10^3/uL Eosinophils # (Auto) 0.0 0.0-0.3 10^3/uL Basophils # (Auto) 0.0 0.0-0.1 10^3/uL Immature Granulocyte # (Auto) 0.2 H 0.0-0.1 10^3/uL Neutrophils % (Manual) 83 % Lymphocytes % (Manual) 6 % Monocytes % (Manual) 5 % Band Neutrophils 2 % Atypical Lymphocytes 1 % Reactive Lymphocytes 2 % Blast Cells 1 % Blood Morphology Comment NORMAL Erythrocyte Sedimentation Rate 42 H 0-30 MM/HR D-Dimer 0.61 H 0.00-0.49 UG/ML Sodium Level 124 *L 135-145 MMOL/L Potassium Level 4.3 3.6-5.0 MMOL/L Chloride Level 98 98-107 MMOL/L Carbon Dioxide Level < 5 *L 21-32 MMOL/L Anion Gap 21 H 5-14 MMOL/L Blood Urea Nitrogen 20 H 7-18 MG/DL Creatinine 1.27 0.60-1.30 MG/DL Estimat Glomerular Filtration Rate 69 BUN/Creatinine Ratio 16 Glucose Level 652 *H 70-105 MG/DL Lactic Acid Level 0.83 0.50-2.00 MMOL/L Calcium Level 8.3 L 8.5-10.1 MG/DL Corrected Calcium 8.5 8.5-10.1 MG/DL Magnesium Level 2.0 1.6-2.4 MG/DL Total Bilirubin 0.4 0.1-1.0 MG/DL Aspartate Amino Transf (AST/SGOT) 31 5-34 U/L Alanine Aminotransferase (ALT/SGPT) 34 0-55 U/L Alkaline Phosphatase 225 H 40-136 U/L Lactate Dehydrogenase 254 H 125-220 U/L Total Creatine Kinase 256 H 30-200 U/L Creatine Kinase MB 3.8 <6.6 NG/ML Troponin I < 0.028 <0.028 NG/ML C-Reactive Protein High Sensitivity 2.96 H 0.00-0.50 MG/DL B-Type Natriuretic Peptide < 10.0 <100.0 PG/ML Total Protein 7.3 6.4-8.2 GM/DL Albumin 3.8 3.2-4.5 GM/DL Beta-Hydroxybutyrate (Chem panel) 8.32 H 0.00-0.27 MMOL/L Procalcitonin 0.13 H <0.10 NG/ML Influenza Type A Antigen POSITIVE H NEGATIVE Influenza Type B Antigen NEGATIVE NEGATIVE Urine Color YELLOW Urine Clarity CLEAR Urine pH 6.0 5-9 Urine Specific [place] 1.025 H 1.016-1.022 Urine Protein TRACE H NEGATIVE Urine Glucose (UA) 3+ H NEGATIVE Urine Ketones 3+ H NEGATIVE Urine Nitrite NEGATIVE NEGATIVE Urine Bilirubin NEGATIVE NEGATIVE Urine Urobilinogen 0.2 < = 1.0 MG/DL Urine Leukocyte Esterase NEGATIVE NEGATIVE Urine RBC (Auto) 2+ H NEGATIVE Urine RBC 2-5 H /HPF Urine WBC 0-2 /HPF Urine Squamous Epithelial Cells NONE /HPF Urine Crystals NONE /LPF Urine Bacteria TRACE /HPF Urine Casts PRESENT /LPF Urine Hyaline Casts 0-2 H /LPF Urine Red Blood Cell Casts RARE H /LPF Urine Mucus SMALL H /LPF Urine Culture Indicated CULTURE PENDING Test 10/11/21 23:45 10/12/21 00:59 2/3/22 01:03 10/12/21 01:12 Range/Units Glucometer 149 H 410 *H 70-110 MG/DL Blood Gas Puncture Site LEFT RADIAL Blood Gas Patient Temperature 37.4 Arterial Blood pH 7.19 *L 7.37-7.43 Arterial Blood Partial Pressure CO2 14 *L 35-45 MMHG Arterial Blood Partial Pressure O2 106 H 79-93 MMHG Arterial Blood HCO3 5 *L 23-27 MMOL/L Arterial Blood Total CO2 5.5 *L 21.0-31.0 MMOL/L Arterial Blood Oxygen Saturation 99 94-100 % Arterial Blood Base Excess -21.9 L -2.5-2.5 MMOL/L Scotty Test UNKNOWN Blood Gas Ventilator Setting NO Blood Gas Inspired Oxygen RA Test 10/12/21 01:54 10/12/21 03:34 10/12/21 03:35 10/12/21 04:41 Range/Units Glucometer 340 H 290 H 253 H 70-110 MG/DL Sodium Level 132 L 135-145 MMOL/L Potassium Level 3.1 L 3.6-5.0 MMOL/L Chloride Level 110 #H 98-107 MMOL/L Carbon Dioxide Level < 5 *L 21-32 MMOL/L Anion Gap 17 H 5-14 MMOL/L Blood Urea Nitrogen 15 7-18 MG/DL Creatinine 0.81 0.60-1.30 MG/DL Estimat Glomerular Filtration Rate 107 BUN/Creatinine Ratio 19 Glucose Level 311 H 70-105 MG/DL Calcium Level 7.2 L 8.5-10.1 MG/DL Test 10/12/21 05:34 10/12/21 05:35 10/12/21 06:37 10/12/21 08:10 Range/Units Glucometer 232 H 233 H 204 H 70-110 MG/DL White Blood Count 5.6 4.3-11.0 10^3/uL Red Blood Count 4.05 L 4.30-5.52 10^6/uL Hemoglobin 11.9 L 13.3-17.7 g/dL Hematocrit 34 L 40-54 % Mean Corpuscular Volume 84 80-99 fL Mean Corpuscular Hemoglobin 29 25-34 pg Mean Corpuscular Hemoglobin Concent 35 32-36 g/dL Red Cell Distribution Width 13.4 10.0-14.5 % Platelet Count 239 130-400 10^3/uL Mean Platelet Volume 10.2 9.0-12.2 fL Immature Granulocyte % (Auto) 3 % Neutrophils (%) (Auto) 74 42-75 % Lymphocytes (%) (Auto) 15 12-44 % Monocytes (%) (Auto) 8 0-12 % Eosinophils (%) (Auto) 0 0-10 % Basophils (%) (Auto) 0 0-10 % Neutrophils # (Auto) 4.1 1.8-7.8 10^3/uL Lymphocytes # (Auto) 0.9 L 1.0-4.0 10^3/uL Monocytes # (Auto) 0.5 0.0-1.0 10^3/uL Eosinophils # (Auto) 0.0 0.0-0.3 10^3/uL Basophils # (Auto) 0.0 0.0-0.1 10^3/uL Immature Granulocyte # (Auto) 0.1 0.0-0.1 10^3/uL Sodium Level 130 L 135-145 MMOL/L Potassium Level 3.4 L 3.6-5.0 MMOL/L Chloride Level 112 H 98-107 MMOL/L Carbon Dioxide Level 7 *L 21-32 MMOL/L Anion Gap 11 5-14 MMOL/L Blood Urea Nitrogen 12 7-18 MG/DL Creatinine 0.76 0.60-1.30 MG/DL Estimat Glomerular Filtration Rate 110 BUN/Creatinine Ratio 16 Glucose Level 231 H 70-105 MG/DL Calcium Level 7.3 L 8.5-10.1 MG/DL Corrected Calcium 8.3 L 8.5-10.1 MG/DL Phosphorus Level 1.6 L 2.3-4.7 MG/DL Magnesium Level 1.8 1.6-2.4 MG/DL Total Bilirubin 0.3 0.1-1.0 MG/DL Aspartate Amino Transf (AST/SGOT) 23 5-34 U/L Alanine Aminotransferase (ALT/SGPT) 26 0-55 U/L Alkaline Phosphatase 166 H 40-136 U/L Total Protein 5.3 L 6.4-8.2 GM/DL Albumin 2.8 L 3.2-4.5 GM/DL Beta-Hydroxybutyrate (Chem panel) 3.45 H 0.00-0.27 MMOL/L Test 10/12/21 09:48 10/12/21 09:55 10/12/21 10:52 10/12/21 11:43 Range/Units Glucometer 321 H 303 H 295 H 70-110 MG/DL Sodium Level 128 L 135-145 MMOL/L Potassium Level 3.4 L 3.6-5.0 MMOL/L Chloride Level 107 98-107 MMOL/L Carbon Dioxide Level 9 *L 21-32 MMOL/L Anion Gap 12 5-14 MMOL/L Blood Urea Nitrogen 9 7-18 MG/DL Creatinine 0.80 0.60-1.30 MG/DL Estimat Glomerular Filtration Rate 108 BUN/Creatinine Ratio 11 Glucose Level 348 H 70-105 MG/DL Calcium Level 7.5 L 8.5-10.1 MG/DL Test 10/12/21 13:03 10/12/21 14:11 10/12/21 14:14 Range/Units Glucometer 256 H 315 H 70-110 MG/DL Potassium Level 3.0 L 3.6-5.0 MMOL/L Chloride Level 104 98-107 MMOL/L Creatinine 0.73 0.60-1.30 MG/DL Estimat Glomerular Filtration Rate 111 Glucose Level 313 H 70-105 MG/DL Calcium Level 7.3 L 8.5-10.1 MG/DL Radiology 10/11/21 CXR normal Physical Exam-([facility]) Physical Exam Vital Signs VS - Last 72 Hours, by Label 10/11/21 10/11/21 10/12/21 10/12/21 23:05 23:05 01:51 01:57 Temp 37.4 36.4 Pulse 86 90 89 Resp 18 18 B/P (MAP) 128/63 (84) 110/69 Pulse Ox 98 99 O2 Delivery Room Air Room Air Room Air 10/12/21 10/12/21 10/12/21 10/12/21 02:00 02:00 02:15 02:30 Pulse 90 87 77 Resp 12 12 12 B/P (MAP) 114/75 104/70 100/56 Pulse Ox 99 99 99 98 O2 Delivery Room Air Room Air Room Air Room Air 10/12/21 10/12/21 10/12/21 10/12/21 02:45 03:00 03:30 04:00 Pulse 74 80 73 70 Resp 12 11 10 12 B/P (MAP) 91/56 103/56 101/50 99/54 Pulse Ox 99 98 98 98 O2 Delivery Room Air Room Air Room Air Room Air 10/12/21 10/12/21 10/12/21 10/12/21 04:00 05:00 06:00 07:00 Pulse 73 75 69 Resp 12 12 B/P (MAP) 100/56 96/54 105/57 Pulse Ox 99 98 97 99 O2 Delivery Room Air Room Air Room Air Room Air 10/12/21 10/12/21 10/12/21 10/12/21 07:00 08:00 08:00 08:30 Temp 36.4 Pulse 75 75 B/P (MAP) 117/66 Pulse Ox 97 O2 Delivery Room Air Nasal Cannula O2 Flow Rate 3.00 10/12/21 10/12/21 10/12/21 10/12/21 08:34 09:00 10:00 11:44 Temp 36.8 Pulse 81 73 Resp 11 B/P (MAP) 103/56 104/62 Pulse Ox 98 98 99 O2 Delivery Room Air Nasal Cannula Nasal Cannula O2 Flow Rate 3.00 3.00 10/12/21 13:00 Pulse 87 Capillary Refill : Less Than 3 Seconds General Appearance: WD/WN, no apparent distress Respiratory: lungs clear, normal breath sounds Cardiovascular: regular rate, rhythm, no murmur Gastrointestinal: normal bowel sounds, non tender, soft Extremities: No pedal edema Neurologic/Psychiatric: alert, normal mood/affect Skin: normal color, warm/dry Assessment/Plan Assessment/Plan Admission Status: Inpatient Order (span 2 midnights) Reason for Inpatient Admission: DKA requiring insulin drip (1) DKA (diabetic ketoacidosis) Status: Acute Assessment & Plan: pH 7.1, improving with drip overnight, AG closed but pe rsistent low bicarb, continue drip. (2) Hyponatremia Status: Acute Assessment & Plan: Secondary to hyperglycemia and hypovolemia. Monitor with treatment of DKA. (3) Hypokalemia Status: Acute Assessment & Plan: Follow and replace per protocol. (4) Influenza A Status: Acute Assessment & Plan: Minimally symptomatic, started on oseltamivir. (5) COVID-19 virus infection Status: Acute Assessment & Plan: Has had Moderna vaccination x 2, eligble for booster but not yet received. Minimally to asymptomatic from respiratory standpoint, monitor closely. (6) Hypophosphatemia Status: Acute Assessment & Plan: NaPhos ordered this am. (7) DVT prophylaxis Status: Acute Assessment & Plan: Enoxaparin ERNA LEMA MD Oct 12, 2021 14:43
[2021-10-12] MEDS ORDERED: INSU100I14 SQ (15:58)
[2021-10-12] MEDS ORDERED: INSU100I34 SQ (15:58)
[2021-10-12 20:24] LABS: CALCIUM 7.5 MG/DL (8.5-10.1); CREATININE SERUM 0.68 MG/DL (0.60-1.30); POTASSIUM 2.6 MMOL/L (3.6-5.0)
[2021-10-13 00:47] LABS: POTASSIUM 2.8 MMOL/L (3.6-5.0)
[2021-10-13 00:48] LABS: CALCIUM 7.6 MG/DL (8.5-10.1)
[2021-10-13 00:53] LABS: CREATININE SERUM 0.6 MG/DL (0.60-1.30)
[2021-10-13] MEDS: POTASSIUM CL 10MEQ/50ML IVPB 50 ML IV SCH ×7 (01:13→11:44)
[2021-10-13] MEDS: 1/2 NS IV SOLUTION 1,000 ML IV SCH ×5 (01:21→16:09)
[2021-10-13] MEDS: MAGNESIUM 1 GM/100 ML IVPB 100 ML IV SCH ×3 (01:52→11:43)
[2021-10-13] MEDS: KCL 20 MEQ TAB (K-DUR) PO SCH (01:53)
[2021-10-13] MEDS: D5 1/2 NS 1000 ML IV SOLUTION 1,000 ML IV SCH ×2 (02:00→05:37)
[2021-10-13 04:55] LABS: BASOPHILS % (AUTO) 0 % (0-10); EOSINOPHILS % (AUTO) 1 % (0-10); HEMATOCRIT 33 % (40-54); HEMOGLOBIN 11.5 g/dL (13.3-17.7); LYMPHOCYTES # (AUTO) 1.5 10^3/uL (1.0-4.0); LYMPHOCYTES % (AUTO) 31 % (12-44); MEAN CORPUSCULAR HEMOGLOBIN 29 pg (25-34); MEAN CORPUSCULAR HGB CONC 35 g/dL (32-36); MEAN CORPUSCULAR VOLUME 82 fL (80-99); MEAN PLATELET VOLUME 9.9 fL (9.0-12.2); MONOCYTES # (AUTO) 0.6 10^3/uL (0.0-1.0); MONOCYTES % (AUTO) 12 % (0-12); NEUTROPHILS # (AUTO) 2.7 10^3/uL (1.8-7.8); NEUTROPHILS % (AUTO) 55 % (42-75); PLATELET COUNT 214 10^3/uL (130-400); WHITE BLOOD COUNT 4.9 10^3/uL (4.3-11.0)
[2021-10-13 05:09] LABS: ALBUMIN 2.5 GM/DL (3.2-4.5)
[2021-10-13 05:10] LABS: POTASSIUM 2.7 MMOL/L (3.6-5.0)
[2021-10-13 05:11] LABS: CALCIUM 7.5 MG/DL (8.5-10.1)
[2021-10-13 05:12] LABS: TOTAL PROTEIN 4.8 GM/DL (6.4-8.2)
[2021-10-13 05:14] LABS: BILIRUBIN,TOTAL 0.4 MG/DL (0.1-1.0)
[2021-10-13 05:15] LABS: PHOSPHORUS 1.7 MG/DL (2.3-4.7)
[2021-10-13 05:16] LABS: CREATININE SERUM 0.56 MG/DL (0.60-1.30)
[2021-10-13 05:18] LABS: MAGNESIUM 1.5 MG/DL (1.6-2.4)
[2021-10-13] MEDS ORDERED: POTASSIUM CL 10MEQ/50ML IVPB 200 ML IV ONE (05:26)
[2021-10-13 05:33] LABS: POTASSIUM 2.9 MMOL/L (3.6-5.0)
[2021-10-13 05:34] LABS: CALCIUM 7.3 MG/DL (8.5-10.1)
[2021-10-13 05:39] LABS: CREATININE SERUM 0.55 MG/DL (0.60-1.30)
[2021-10-13 09:58] LABS: CALCIUM 7.3 MG/DL (8.5-10.1); CREATININE SERUM 0.64 MG/DL (0.60-1.30); POTASSIUM 2.6 MMOL/L (3.6-5.0)
[2021-10-13] MEDS: OSELTAMIVIR 75 MG (TAMIFLU) CAPSULE PO SCH ×2 (10:29→21:39)
[2021-10-13] MEDS: FAMOTIDINE 20MG/2ML IV (PEPCID) IVP SCH (10:30)
[2021-10-13] MEDS: inSUlin ASPART (NovoLOG) 1 UNIT/0.01 ML (CHARGE PER UNIT) SC SCH ×5 (11:43→21:38)
--- NOTE | 2021-10-13 11:51 | Tele-ICU Progress Note ---
Subjective Date Seen by a Provider: Oct 13, 2021 Time Seen by a Provider: 11:51 Sepsis Event Evaluation Height, Weight, BMI Height: '" Weight: lbs. oz. kg; 23.00 BMI Method: Focused Exam Lactate Level 10/11/21 23:17: Lactic Acid Level 0.83 Time of Focused Exam: 00:01 Exam Exam Patient acknowledged, consented, and participated in this virtual visit which was conducted using real time audio/video Vital Signs Date Time Temp Pulse Resp B/P (MAP) Pulse Ox O2 Delivery O2 Flow Rate FiO2 10/13/21 11:00 87 12 119/86 98 Room Air 10/13/21 10:00 79 17 129/73 98 Room Air 10/13/21 09:00 94 14 109/73 98 Room Air 10/13/21 08:00 37.1 10/13/21 08:00 72 121/71 97 Room Air 10/13/21 07:00 73 111/69 97 Room Air 10/13/21 07:00 76 10/13/21 06:00 69 124/77 97 Room Air 10/13/21 05:00 74 124/74 97 Room Air 10/13/21 04:00 98 Room Air 10/13/21 04:00 80 123/82 96 Room Air 10/13/21 03:00 77 124/81 96 Room Air 10/13/21 02:00 74 123/69 97 Room Air 10/13/21 01:00 77 10/13/21 01:00 77 117/73 97 Room Air 10/13/21 00:00 76 117/66 97 Room Air 10/12/21 23:59 96 Room Air 10/12/21 23:00 74 116/73 98 Room Air 10/12/21 22:00 75 119/71 98 Room Air 10/12/21 21:00 86 121/66 98 Room Air 10/12/21 20:00 36.2 Room Air 10/12/21 20:00 74 122/77 98 Room Air 10/12/21 20:00 96 Room Air 10/12/21 19:00 78 116/65 97 Room Air 10/12/21 19:00 78 10/12/21 18:00 74 106/61 98 Nasal Cannula 3.00 10/12/21 17:00 73 111/63 98 Nasal Cannula 3.00 10/12/21 16:03 99 Room Air 10/12/21 16:00 70 8 116/66 98 Nasal Cannula 3.00 10/12/21 16:00 36.5 10/12/21 15:00 71 116/69 98 Nasal Cannula 3.00 10/12/21 14:00 67 9 111/67 99 Nasal Cannula 3.00 10/12/21 13:00 72 8 111/66 99 Nasal Cannula 3.00 10/12/21 13:00 87 10/12/21 12:00 99 Room Air 10/12/21 12:00 71 10 109/59 99 Nasal Cannula 3.00 I & O 10/13/21 07:00 Intake Total 8410 ml Output Total 7600 ml Balance 810 ml Height & Weight Height: '" Weight: lbs. oz. kg; 23.00 BMI Method: General Appearance: No Apparent Distress, WD/WN, Thin, Other (DOES NOT APPEAR TO BE IN ANY DISCOMFORT OR DISTRESS, IS SLIGHTLY LETHARGIC, BUT NO HYPERVENT ILATION OR KUSSMAUL'S BREATHING. WALKS IN ON HIS OWN WITHOUT DIFFICULTY. ) HEENT: PERRL/EOMI, TMs Normal, Normal ENT Inspection, Pharynx Normal, Moist Mucous Membranes Neck: Normal Inspection Respiratory: Normal Breath Sounds, No Accessory Muscle Use, No Respiratory Distress Cardiovascular: Regular Rate, Rhythm, No Edema, No JVD, No Murmur, Normal Peripheral Pulses Capillary Refill: Less Than 3 Seconds Gastrointestinal: normal bowel sounds, non tender, soft Extremity: Normal Inspection, No Pedal Edema Neurologic/Psychiatric: Alert, Oriented x3, No Motor/Sensory Deficits, Normal Mood/Affect, ortho nurse II-XII Norm as Tested Skin: Normal Color (PT IS ), Warm/Dry Results Lab Laboratory Tests 10/11/21 23:17 10/12/21 03:35 10/12/21 05:35 10/12/21 09:55 10/12/21 14:14 10/12/21 19:56 10/13/21 00:30 10/13/21 04:15 10/13/21 04:36 10/13/21 09:30 Assessment/Plan Assessment/Plan (Tele-ICU Physician , Progress Note ) Available chart/ vitals / labs / Images reviewed Video assessment done using teleICU camera, rest of exam as per RN Discussed with RN , EXAM PER RN Events overnight : Afebrile FiO2 - ra I/O = pos 6 l Drips: Pressors: , hemodynamically stable Consultants: Hospital course: 10/11- DKA , FLU A +, Covid+ A/P DKA -due to new viral infection insulin drip to stop , long actin insulin initiated Influenza A - tamiflu Coronavirus-2/COVID + ( DX 10/11 HAS HAD 2 COVID-19 VACCINES, BUT HAS NOT HAD BOOSTER- ? carrier vs true infection - not hypoxic , ? rmdesivir candidate -Hypercoagulable state , thrombotic microangiopathy, DDIMER= 0.6on 10/11-> 1.3 , on lovenox ppx dose , follow D dimer Monitor for superimposed bact PNA -PCT0.13 , OFF abx Lines : periph (Central Line Necessity Reviewed) Mccarty: void OG: Nutrition: Analgesia: Anxiety/ delirium VTE Prophylaxis: lovenox 40 Stress Ulcer Prophylaxis: h2bl Plans in collaboration with bedside consultants and IM MDs. Discussed with RN to reach out if any questions or concerns A total of 33 minutes of critical care time was devoted to this patient today, required to treat and/or prevent further deterioration of critical care condition ( as above ) . BRIGETTE LOVE MD Oct 13, 2021 11:51
[2021-10-13] MEDS ORDERED: KCL 20 MEQ TAB (K-DUR) PO ONE (12:00)
--- NOTE | 2021-10-13 12:57 | Progress Note ---
Subjective Subjective/Events-last exam Afebrile, feeling okay, is hungry, denies questions. Unable to reach an historical interpreter via historical interpreter line, so limited ability to evaluate this morning. Focused Exam Lactate Level 10/11/21 23:17: Lactic Acid Level 0.83 Time of Focused Exam: 00:01 Objective Exam Last Set of Vital Signs Vital Signs Date Time Temp Pulse Resp B/P (MAP) Pulse Ox O2 Delivery O2 Flow Rate FiO2 10/13/21 12:37 80 10/13/21 12:00 15 134/89 98 Room Air 10/13/21 08:00 37.1 10/12/21 18:00 3.00 Capillary Refill : Less Than 3 Seconds I&O Intake and Output 10/13/21 00:00 Intake Total 8160 ml Output Total 6500 ml Balance 1660 ml Intake Oral 3550 ml IV Total 4610 ml Output Urine Total 6500 ml General: Alert, No Acute Distress Lungs: Clear to Auscultation, Normal Air Movement Heart: Regular Rate, No Murmurs Abdomen: Normal Bowel Sounds, Soft, No Tenderness Extremities: No Edema Neuro: Normal Speech Psych/Mental Status: Mood NL Results/Procedures Lab Laboratory Tests 10/12/21 13:03: Glucometer 256H 10/12/21 14:11: Glucometer 315H 10/12/21 14:14: Sodium Level 125*L, Potassium Level 3.0L, Chloride Level 104, Carbon Dioxide Level 9*L, Anion Gap 12, Blood Urea Nitrogen 7, Creatinine 0.73, Estimat Glomerular Filtration Rate 111, BUN/Creatinine Ratio 10, Glucose Level 313H, C alcium Level 7.3L 10/12/21 14:45: Glucometer 294H 10/12/21 15:42: Glucometer 231H 10/12/21 16:50: Glucometer 164H 10/12/21 17:45: Glucometer 159H 10/12/21 19:12: Glucometer 150H 10/12/21 19:55: Glucometer 152H 10/12/21 19:56: Sodium Level 131L, Potassium Level 2.6L, Chloride Level 107, Carbon Dioxide Level 14L, Anion Gap 10, Blood Urea Nitrogen 6L, Creatinine 0.68, Estimat Glomerular Filtration Rate 113, BUN/Creatinine Ratio 9, Glucose Level 146H, Calcium Level 7.5L 10/12/21 21:05: Glucometer 175H 10/12/21 22:07: Glucometer 166H 10/12/21 22:55: Glucometer 165H 10/12/21 23:52: Glucometer 153H 10/13/21 00:30: Sodium Level 131L, Potassium Level 2.8L, Chloride Level 108H, Carbon Dioxide Level 15L, Anion Gap 8, Blood Urea Nitrogen 5L, Creatinine 0.60, Estimat Glomerular Filtration Rate 118, BUN/Creatinine Ratio 8, Glucose Level 132H, Calcium Level 7.6L 10/13/21 01:08: Glucometer 112H 10/13/21 01:51: Glucometer 110 10/13/21 02:33: Glucometer 170H 10/13/21 03:29: Glucometer 167H 10/13/21 04:15: Sodium Level 128L, Potassium Level 2.9L, Chloride Level 105, Carbon Dioxide Level 16L, Anion Gap 7, Blood Urea Nitrogen 4L, Creatinine 0.55L, Estimat Glomerular Filtration Rate 121, BUN/Creatinine Ratio 7, Glucose Level 179H, Calcium Level 7.3L, Beta-Hydroxybutyrate (Chem panel) 0.35H 10/13/21 04:36: White Blood Count 4.9, Red Blood Count 3.97L, Hemoglobin 11.5L, Hematocrit 33L, Mean Corpuscular Volume 82, Mean Corpuscular Hemoglobin 29, Mean Corpuscular Hemoglobin Concent 35, Red Cell Distribution Width 13.4, Platelet Count 214, Mean Platelet Volume 9.9, Immature Granulocyte % (Auto) 1, Neutrophils (%) (Auto) 55, Lymphocytes (%) (Auto) 31, Monocytes (%) (Auto) 12, Eosinophils (%) (Auto) 1, Basophils (%) (Auto) 0, Neutrophils # (Auto) 2.7, Lymphocytes # (Auto) 1.5, Monocytes # (Auto) 0.6, Eosinophils # (Auto) 0.0, Basophils # (Auto) 0.0, Immature Granulocyte # (Auto) 0.0, D-Dimer 1.35H, Sodium Level 130L, Potassium Level 2.7L, Chloride Level 106, Carbon Dioxide Level 16L, Anion Gap 8, Blood Urea Nitrogen 4L, Creatinine 0.56L, Estimat Glomerular Filtration Rate 120, BUN/Creatinine Ratio 7, Glucose Level 183H, Glucometer 167H, Calcium Level 7.5L, Corrected Calcium 8.7, Phosphorus Level 1.7L, Magnesium Level 1.5L, Total Bilirubin 0.4, Aspartate Amino Transf (AST/SGOT) 20, Alanine Aminotransferase (ALT/SGPT) 26, Alkaline Phosphatase 146H, Total Protein 4.8L, Albumin 2.5L 10/13/21 05:32: Glucometer 168H 10/13/21 06:27: Glucometer 164H 10/13/21 07:50: Glucometer 197H 10/13/21 08:57: Glucometer 159H 10/13/21 09:30: Sodium Level 129L, Potassium Level 2.6L, Chloride Level 103, Carbon Dioxide Level 17L, Anion Gap 9, Blood Urea Nitrogen 3L, Creatinine 0.64, Estimat Glomerular Filtration Rate 115, BUN/Creatinine Ratio 5, Glucose Level 254H, Ca lcium Level 7.3L Microbiology 10/12/21 Blood Culture - Preliminary, Resulted No growth 10/11/21 Urine Culture - Preliminary, Resulted NO GROWTH Radiology 10/11/21 CXR normal Assessment/Plan Assessment/Plan (1) DKA (diabetic ketoacidosis) Status: Acute Assessment & Plan: pH 7.1, improving with drip overnight, AG closed but persistent low bicarb, continue drip. 10/13- AG remains closed, CO2 increasing, d/c start long acting and d/c drip. Required 160 units in last 24 hours per drip, will start long acting at higher than previous home dose given his report of high blood sugars prior to current illness. (2) Hyponatremia Status: Acute Assessment & Plan: Secondary to hyperglycemia and hypovolemia. Monitor with treatment of DKA. (3) Hypokalemia Status: Acute Assessment & Plan: Follow and replace per protocol. (4) Influenza A Status: Acute Assessment & Plan: Minimally symptomatic, started on oseltamivir. (5) COVID-19 virus infection Status: Acute Assessment & Plan: Has had Moderna vaccination x 2, eligble for booster but not yet received. Minimally to asymptomatic from respiratory standpoint, monitor closely. (6) Hypophosphatemia Status: Acute Assessment & Plan: Follow and replace (7) DVT prophylaxis Status: Acute Assessment & Plan: Enoxaparin EFFIE JIMENEZ MD Oct 13, 2021 12:57
[2021-10-13] MEDS ORDERED: SODIUM PHOSPHATE INJ 30 MM in NS (IVPB) 250 ML INJ ONE (13:30)
[2021-10-13] MEDS: ENOXAPARIN 40 MG/0.4 ML (LOVENOX) SYR SC SCH (14:07)
[2021-10-13 17:08] LABS: POTASSIUM 2.6 MMOL/L (3.6-5.0)
[2021-10-13 17:09] LABS: CALCIUM 7.5 MG/DL (8.5-10.1)
[2021-10-13 17:14] LABS: CREATININE SERUM 0.56 MG/DL (0.60-1.30)
[2021-10-14 05:42] LABS: BASOPHILS % (AUTO) 0 % (0-10); EOSINOPHILS % (AUTO) 0 % (0-10); HEMATOCRIT 37 % (40-54); LYMPHOCYTES % (AUTO) 39 % (12-44); MEAN CORPUSCULAR HEMOGLOBIN 29 pg (25-34); MEAN CORPUSCULAR HGB CONC 35 g/dL (32-36); MEAN CORPUSCULAR VOLUME 82 fL (80-99); MEAN PLATELET VOLUME 10.1 fL (9.0-12.2); MONOCYTES # (AUTO) 0.8 10^3/uL (0.0-1.0); MONOCYTES % (AUTO) 15 % (0-12); NEUTROPHILS # (AUTO) 2.3 10^3/uL (1.8-7.8); NEUTROPHILS % (AUTO) 46 % (42-75); PLATELET COUNT 231 10^3/uL (130-400); WHITE BLOOD COUNT 5.1 10^3/uL (4.3-11.0)
[2021-10-14 05:55] LABS: CALCIUM 7.9 MG/DL (8.5-10.1)
[2021-10-14 05:57] LABS: TOTAL PROTEIN 5.9 GM/DL (6.4-8.2)
[2021-10-14 05:59] LABS: BILIRUBIN,TOTAL 0.7 MG/DL (0.1-1.0)
[2021-10-14 06:00] LABS: CREATININE SERUM 0.59 MG/DL (0.60-1.30); PHOSPHORUS 3.1 MG/DL (2.3-4.7)
[2021-10-14 06:04] LABS: MAGNESIUM 2.1 MG/DL (1.6-2.4); POTASSIUM 2.4 MMOL/L (3.6-5.0)
[2021-10-14] MEDS: inSUlin ASPART (NovoLOG) 1 UNIT/0.01 ML (CHARGE PER UNIT) SC SCH ×4 (06:41→11:55)
[2021-10-14] MEDS: KCL 20 MEQ TAB (K-DUR) PO SCH (06:41)
[2021-10-14] MEDS: MAGNESIUM 1 GM/100 ML IVPB 100 ML IV SCH (06:41)
[2021-10-14] MEDS ORDERED: POTASSIUM CL 10MEQ/50ML IVPB 50 ML IV SCH (07:15)
[2021-10-14] MEDS: POTASSIUM CL 10MEQ/50ML IVPB 50 ML IV SCH (07:26)
[2021-10-14] MEDS ORDERED: KCL 20 MEQ TAB (K-DUR) PO ONE ×3 (08:00→12:00)
[2021-10-14] MEDS: OSELTAMIVIR 75 MG (TAMIFLU) CAPSULE PO SCH (08:20)
[2021-10-14] MEDS: FAMOTIDINE 20MG/2ML IV (PEPCID) IVP SCH (08:20)
[2021-10-14 13:14] LABS: POTASSIUM 3.3 MMOL/L (3.6-5.0)
[2021-10-14 13:15] LABS: CALCIUM 7.9 MG/DL (8.5-10.1)
[2021-10-14 13:19] LABS: CREATININE SERUM 0.6 MG/DL (0.60-1.30)
[2021-10-14] MEDS: ENOXAPARIN 40 MG/0.4 ML (LOVENOX) SYR SC SCH (13:55)
--- NOTE | 2021-10-15 14:12 | Discharge Summary ---
Diagnosis/Chief Complaint Date of Admission Oct 12, 2021 at 00:05 Date of Discharge Oct 14, 2021 at 15:00 Discharge Date: Oct 14, 2021 Primary Care Rolly Urena Discharge Summary Discharge Physical Exam Allergies: Coded Allergies: No Known Drug Allergies (Unverified , 12/02/19) Vitals & I&Os Vital Signs Date Time Temp Pulse Resp B/P (MAP) Pulse Ox O2 Delivery O2 Flow Rate FiO2 10/14/21 13:00 97 12 118/84 96 Room Air 10/14/21 12:00 36.6 10/12/21 18:00 3.00 General Appearance: No Apparent Distress Respiratory: Chest Non Tender, Lungs Clear, Normal Breath Sounds, No Accessory Muscle Use, No Respiratory Distress Cardiovascular: Regular Rate, Rhythm, No Edema, No Gallop, No JVD, No Murmur, Normal Peripheral Pulses Gastrointestinal: Normal Bowel Sounds, No Organomegaly, No Pulsatile Mass, Non Tender, Soft Hospital Course Was the Problem List Reviewed?: Yes 50 yo male came to ER due to high blood sugar. He states his blood sugar usually runs between 200 and 300 and he takes long acting insulin twice per day, 20 units each and 6 units with meals of short acting. He denies being out of insulin. He did have some upper respiratory symptoms yesterday of sore throat, mild cough which are already seeming better today. On reflection, he may have had symptoms for 2-3 days. He denies vomiting, diarrhea. He has been admitted with DKA before, was diagnosed with diabetes about 2 years ago, states he was 240 lbs before he was diagnosed. Patient was found to be Covid positive via PCR as well as influenza a positive on flu swab. From this standpoint he appears to be minimally symptomatic except for low-grade myalgia and a mild headache. No evidence for respiratory distress with stable pulmonary evaluation without hyp oxia. Acidosis cleared quickly on insulin with no complications during his hospital stay. Discussed the importance of maintaining basal bolus therapy and checking his blood sugar several times a day advising follow-up in 1 to 2 weeks with his primary care provider. His only medication on discharge with his insulin 7 units of rapid acting insulin prior to meals and 20 units of Basaglar twice daily. Labs (last 24 hrs) Microbiology 10/12/21 Blood Culture - Preliminary, Resulted No growth 10/11/21 Urine Culture - Final, Complete NO GROWTH Patient resulted labs reviewed. Discussion & Recommendations Discharge Planning: <30 minutes discharge planning Discharge Home Medications: Active Scripts Active Reported Novolog Flexpen (Insulin Aspart) 300 Units/3 Ml Solution 7 Units SQ AC Basaglar Kwikpen U-100 (Insulin Glargine,Hum.rec.anlog) 100 Unit/1 Ml Insuln.pen 20 Unit SQ BID Instructions to patient/family Please see electronic discharge instructions given to patient. Copy Copies To 1: [facility]/JOHN THOMAS MD Oct 15, 2021 14:12
== END 2021-10-14 15:00 | disposition home or self-care (01) | DRG 177 ==
LOC: EDUNIT# 22:58 → ER 23:00 → ICU 10-12 00:05
PROVIDERS: ADMIT Family Medicine; ATTEND Internal Medicine
DX: U07.1 COVID-19 (principal); E11.10 Type 2 diabetes mellitus with ketoacidosis without coma; E87.1 Hypo-osmolality and hyponatremia; J10.1 Influenza due to other identified influenza virus with other respiratory manifestations; E87.6 Hypokalemia; I10 Essential (primary) hypertension; E83.39 Other disorders of phosphorus metabolism; Z79.4 Long term (current) use of insulin
CPT/HCPCS: 36415; 71045; 80048; 80053; 81000; 82010; 82550; 82553; 82805; 82947; 83036; 83605; 83615; 83735; 83880; 84100; 84145; 84484; 85007; 85025; 85027; 85379; 85652; 86141; 87040; 87088; 87636; 87804; 93005; 93041; 99291

== ENCOUNTER 2022-01-29 15:21 | Inpatient (IN) | payer OTHER ==
[~2022-01-29] VITALS: Ht 185 cm; Wt 68.5 kg
[2022-01-29] MEDS ORDERED: NS IV 1000 ML 1,000 ML IV SCH ×2 (15:45→18:00)
--- NOTE | 2022-01-29 15:50 | ED General ---
General Chief Complaint: Glucose Problems Stated Complaint: DIABETIC, HIGH BS AROUND 500 Source of Information: Patient Exam Limitations: No Limitations History of Present Illness Date Seen by Provider: January 29, 2022 Time Seen by Provider: 15:30 Initial Comments Patient to the ER by private conveyance with a nondenominational friend who provides Ecuadorean interpretation and chief complaint of past week of having increased urination and now the last 2 days not able to urinate very much. He has type 1 diabetes. His blood sugar has been elevated as high as 500. He has been taking his insulin routinely and has not been out of it. He takes Lantus 26 units this morning and 12 units of NovoLog this morning. Primary care provider is King Urena. He is not having any nausea right now. No fevers chills recent travel dysuria diarrhea or constipation. He has had to stay in the ICU for DKA in the past and his last episode was about 6 months ago. Allergies and Home Medications Allergies Coded Allergies: No Known Drug Allergies (Unverified , 12/02/19) Patient Home Medication List Home Medication List Reviewed: Yes Insulin Aspart (Novolog Flexpen) 300 Units/3 Ml Solution, 7 UNITS SQ AC, (Reported) Entered as Reported by: ISHA LOPEZ on 10/12/211557 Insulin Glargine,Hum.rec.anlog (Basaglar Kwikpen U-100) 100 Unit/1 Ml Insuln.pen, 20 UNIT SQ BID, (Reported) Entered as Reported by: ISHA LOPEZ on 10/12/21 1558 Review of Systems Review of Systems Constitutional: No chills, No diaphoresis EENTM: No ear discharge, No hearing loss, No ear pain Respiratory: No cough, No short of breath Cardiovascular: No edema, No Hx of Intervention, No palpitations Gastrointestinal: No abdominal pain, No constipation, No nausea, No vomiting Genitourinary: No discharge, No dysuria Musculoskeletal: No back pain, No joint pain All Other Systems Reviewed Negative Unless Noted: Yes Past Dckowwa-Uiywfd-Sqrleb Hx Patient Social History Tobacco Use?: No Use of E-Cig and/or Vaping dev: No Substance use?: No Alcohol Use?: No Immunizations Up To Date First/Initial COVID19 Vaccinat: 11/17/2020 Second COVID19 Vaccination Mayco: 12/21/2020 Seasonal Allergies Seasonal Allergies: No Past Medical History Surgery/Hospitalization HX: DM HTN Surgeries: No Respiratory: No (INTUBATED 11/2019 WITH DKA) Cardiac: Yes Hypertension Neurological: No Genitourinary: No Gastrointestinal: No Musculoskeletal: No Endocrine: Yes (DM DX 11/2019 AND PT WAS IN DKA AND REQUIRED INTUBATION D/T ACIDOSIS) Diabetes, Insulin dep HEENT: No Cancer: No Psychosocial: No Integumentary: No Blood Disorders: No Family Medical History No Pertinent Family Hx Physical Exam Vital Signs Vital Signs - First Documented 01/29/22 15:27 Temp 36.6 Pulse 89 Resp 17 B/P (MAP) 104/61 (75) Pulse Ox 100 Capillary Refill : Height, Weight, BMI Height: '" Weight: lbs. oz. kg; 23.00 BMI Method: General Appearance: Mild Distress, Thin Eyes: Bilateral Eye Normal Inspection, Bilateral Eye PERRL, Bilateral Eye EOMI HEENT: PERRL/EOMI, TMs Normal, Pharynx Normal, Moist Mucous Membranes Neck: Full Range of Motion, Normal Inspection Respiratory: Lungs Clear, Normal Breath Sounds, No Accessory Muscle Use, Respiratory Distress (Mild with respiratory rate of 25-27, deep inspiration) Cardiovascular: Regular Rate, Rhythm, No Edema, Normal Peripheral Pulses Gastrointestinal: Non Tender, Soft Extremity: Normal Capillary Refill, Normal Inspection Neurologic/Psychiatric: Alert, Oriented x3, No Motor/Sensory Deficits Skin: Normal Color, Warm/Dry Procedures/Interventions Date of ETT Placement: Dec 02, 2019 Time of ETT Placement: 0828 Progress/Results/Core Measures Suspected Sepsis SIRS Temperature: Pulse: Respiratory Rate: Laboratory Tests 01/29/22 15:47: White Blood Count 14.3H Blood Pressure / Mean: Laboratory Tests 01/29/22 15:47: Creatinine 1.40H, Platelet Count 386, Total Bilirubin 0.8 Results/Orders Lab Results Laboratory Tests Test 01/29/22 15:47 01/29/22 15:48 01/29/22 16:48 Range/Units White Blood Count 14.3 H 4.3-11.0 10^3/uL Red Blood Count 4.92 4.30-5.52 10^6/uL Hemoglobin 14.6 13.3-17.7 g/dL Hematocrit 43 40-54 % Mean Corpuscular Volume 86 80-99 fL Mean Corpuscular Hemoglobin 30 25-34 pg Mean Corpuscular Hemoglobin Concent 34 32-36 g/dL Red Cell Distribution Width 13.2 10.0-14.5 % Platelet Count 386 130-400 10^3/uL Mean Platelet Volume 10.0 9.0-12.2 fL Immature Granulocyte % (Auto) 4 % Neutrophils (%) (Auto) 75 42-75 % Lymphocytes (%) (Auto) 12 12-44 % Monocytes (%) (Auto) 8 0-12 % Eosinophils (%) (Auto) 0 0-10 % Basophils (%) (Auto) 1 0-10 % Neutrophils # (Auto) 10.6 H 1.8-7.8 10^3/uL Lymphocytes # (Auto) 1.8 1.0-4.0 10^3/uL Monocytes # (Auto) 1.2 H 0.0-1.0 10^3/uL Eosinophils # (Auto) 0.0 0.0-0.3 10^3/uL Basophils # (Auto) 0.1 0.0-0.1 10^3/uL Immature Granulocyte # (Auto) 0.6 H 0.0-0.1 10^3/uL Neutrophils % (Manual) 72 % Lymphocytes % (Manual) 14 % Monocytes % (Manual) 14 % Nucleated Red Blood Cells 1 Polychromasia MODERATE Sodium Level 125 *L 135-145 MMOL/L Potassium Level 4.3 3.6-5.0 MMOL/L Chloride Level 93 L 98-107 MMOL/L Carbon Dioxide Level 7 *L 21-32 MMOL/L Anion Gap 25 H 5-14 MMOL/L Blood Urea Nitrogen 19 H 7-18 MG/DL Creatinine 1.40 H 0.60-1.30 MG/DL Estimat Glomerular Filtration Rate 61 BUN/Creatinine Ratio 14 Glucose Level 629 *H 70-105 MG/DL Calcium Level 9.0 8.5-10.1 MG/DL Corrected Calcium 9.0 8.5-10.1 MG/DL Magnesium Level 2.5 H 1.6-2.4 MG/DL Total Bilirubin 0.8 0.1-1.0 MG/DL Aspartate Amino Transf (AST/SGOT) 15 5-34 U/L Alanine Aminotransferase (ALT/SGPT) 33 0-55 U/L Alkaline Phosphatase 240 H 40-136 U/L C-Reactive Protein High Sensitivity 6.86 H 0.00-0.50 MG/DL Total Protein 8.1 6.4-8.2 GM/DL Albumin 4.0 3.2-4.5 GM/DL Glucometer 578 *H 70-110 MG/DL Urine Color YELLOW Urine Clarity CLEAR Urine pH 5.5 5-9 Urine Specific [place] 1.025 H 1.016-1.022 Urine Protein NEGATIVE NEGATIVE Urine Glucose (UA) 3+ H NEGATIVE Urine Ketones 3+ H NEGATIVE Urine Nitrite NEGATIVE NEGATIVE Urine Bilirubin NEGATIVE NEGATIVE Urine Urobilinogen 0.2 < = 1.0 MG/DL Urine Leukocyte Esterase NEGATIVE NEGATIVE Urine RBC (Auto) TRACE-I H NEGATIVE Urine RBC NONE /HPF Urine WBC 0-2 /HPF Urine Squamous Epithelial Cells NONE /HPF Urine Renal Epithelial Cells NONE /HPF Urine Crystals NONE /LPF Urine Bacteria NEGATIVE /HPF Urine Casts NONE /LPF Urine Mucus NEGATIVE /LPF Urine Culture Indicated NO My Orders Orders - KRYSTLE WEEKS Accucheck Stat ONCE (01/29/22 15:28) Ed Iv/Invasive Line Start (01/29/22 15:43) Ns Iv 1000 Ml (Sodium Chloride 0.9%) (01/29/22 15:45) Ua Culture If Indicated (01/29/22 15:43) Cbc With Automated Diff (01/29/22 15:43) Comprehensive Metabolic Panel (01/29/22 15:43) Hs C Reactive Protein (01/29/22 15:43) Beta Hydroxybutyrate (01/29/22 15:43) Magnesium (01/29/22 15:44) Magnesium (01/29/22 15:50) Chest 1 View, Ap/Pa Only (01/29/22 15:50) Manual Differential (01/29/22 15:47) Insulin (Regular) Human (Novolin R (Per (01/29/22 16:30) Medications Given in ED Current Medications Medications Dose Ordered Sig/Roberth Route Start Time Stop Time Status Last Admin Dose Admin Insulin Human Regular 5 unit ONCE ONCE IV 01/29/22 16:30 01/29/22 16:31 DC 01/29/22 16:47 5 UNIT Vital Signs/I&O 01/29/22 15:27 Temp 36.6 Pulse 89 Resp 17 B/P (MAP) 104/61 (75) Pulse Ox 100 Capillary Refill : Progress Note #1: Time: 15:49 Progress Note Suspect DKA versus HHS. No readily apparent underlying illness however we will go looking for electrolyte disorders. 1 L of normal saline to start. Progress Note #2: Time: 17:07 Progress Note Nothing in the history, examination or laboratory/radiological exam suggest the provocation for his current DKA. He did get 5 units of NovoLog IV. Potassium is okay. Sodium is significantly low and he did get a liter of saline. He is not having any nausea since he arrived in the ER and asking for something to drink so we will give him some ice water. Diagnostic Imaging Diagonstic Imaging: Xray Plain Films/CT/US/NM/MRI: chest Comments [facility] [place], [place] NAME: FARZANEH RIVAS [facility] REC#: [id number] PT STATUS: REG ER : 1970 PHYSICIAN: KRYSTLE WEEKS MD ADMIT DATE: 01/29/22/ER Signed Date of Exam:01/29/22 CHEST 1 VIEW, AP/PA ONLY Indication: Hyperglycemia Portable chest 4:20 PM Heart size and pulmonary vascularity are normal. Lungs are clear. There are no effusions or pneumothoraces. IMPRESSION: No acute abnormalities in the chest Dictated by: Dictated on workstation # [id number] Dict: 01/29/227 Trans: 01/29/221616 TCB [id number] Interpreted by: PIPO BUSTILLO MD Electronically signed by: PIPO BUSTILLO MD 01/29/221616 Reviewed: Reviewed by Me Departure Communication (Admissions) Time/Spoke to Admitting Phy: 16:50 Dr. Lema agrees to admit the patient to the ICU on an insulin drip and she will put in queued orders. Time/Spoke to Consulting Phy: 17:05 E-ICU: Discussed the case and they agree to consult. Impression Primary Impression: DKA (diabetic ketoacidosis) Qualified Codes: E10.10 - Type 1 diabetes mellitus with ketoacidosis without coma Additional Impression: Hyponatremia Disposition: ADMITTED INPATIENT Condition: Stable Admissions Decision to Admit Reason: Admit from ER (General) Decision to Admit/Date: January 29, 2022 Time/Decision to Admit Time: 16:30 Departure-Patient Inst. Referrals: [facility] (PCP) Primary Care Physician KING URENA (Family) Primary Care Physician KRYSTLE WEEKS January 29, 2022 15:49
[2022-01-29 16:05] LABS: BASOPHILS # (AUTO) 0.1 10^3/uL (0.0-0.1); BASOPHILS % (AUTO) 1 % (0-10); EOSINOPHILS % (AUTO) 0 % (0-10); HEMATOCRIT 43 % (40-54); HEMOGLOBIN 14.6 g/dL (13.3-17.7); LYMPHOCYTES # (AUTO) 1.8 10^3/uL (1.0-4.0); LYMPHOCYTES % (AUTO) 12 % (12-44); MEAN CORPUSCULAR HEMOGLOBIN 30 pg (25-34); MEAN CORPUSCULAR HGB CONC 34 g/dL (32-36); MEAN CORPUSCULAR VOLUME 86 fL (80-99); MONOCYTES # (AUTO) 1.2 10^3/uL (0.0-1.0); MONOCYTES % (AUTO) 8 % (0-12); NEUTROPHILS # (AUTO) 10.6 10^3/uL (1.8-7.8); NEUTROPHILS % (AUTO) 75 % (42-75); PLATELET COUNT 386 10^3/uL (130-400); WHITE BLOOD COUNT 14.3 10^3/uL (4.3-11.0)
[2022-01-29 16:15] LABS: POTASSIUM 4.3 MMOL/L (3.6-5.0)
[2022-01-29 16:17] LABS: TOTAL PROTEIN 8.1 GM/DL (6.4-8.2)
[2022-01-29 16:19] LABS: BILIRUBIN,TOTAL 0.8 MG/DL (0.1-1.0)
--- NOTE | 2022-01-29 16:19 | Diagnostic Imaging Report ---
Indication: Hyperglycemia Portable chest 4:20 PM Heart size and pulmonary vascularity are normal. Lungs are clear. There are no effusions or pneumothoraces. IMPRESSION: No acute abnormalities in the chest Dictated by: Dictated on workstation # [id number]
[2022-01-29 16:21] LABS: CREATININE SERUM 1.4 MG/DL (0.60-1.30)
[2022-01-29 16:29] LABS: LYMPHOCYTES % (MANUAL) 14 %; MONOCYTES % (MANUAL) 14 %; NEUTROPHILS % (MANUAL) 72 %; NUCLEATED RED BLOOD CELLS 1; POLYCHROMASIA MODERATE
[2022-01-29] MEDS ORDERED: inSUlin (REGULAR) HUMAN 1 UNIT/0.01 ML (CHARGE PER UNIT) IV ONE (16:30)
[2022-01-29 16:55] LABS: BILIRUBIN,URINE NEGATIVE (NEGATIVE); CLARITY,URINE CLEAR; COLOR,URINE YELLOW; GLUCOSE, URINE (UA) 3+ (NEGATIVE); KETONES,URINE 3+ (NEGATIVE); LEUKOCYTE ESTERASE ,URINE NEGATIVE (NEGATIVE); NITRITE,URINE NEGATIVE (NEGATIVE); PH,URINE 5.5 (5-9); PROTEIN,URINE NEGATIVE (NEGATIVE)
[2022-01-29 17:03] LABS: BACTERIA,URINE NEGATIVE /HPF; WBC,URINE 0-2 /HPF
[2022-01-29] MEDS ORDERED: NS IV 1000 ML 1,000 ML ONE (17:55)
[2022-01-29] MEDS: POTASSIUM CL 10MEQ/50ML IVPB 50 ML IV SCH ×4 (18:05→22:55)
[2022-01-29 18:14] LABS: HEMATOCRIT 38 % (40-54); HEMOGLOBIN 12.7 g/dL (13.3-17.7); MEAN CORPUSCULAR HEMOGLOBIN 29 pg (25-34); MEAN CORPUSCULAR HGB CONC 33 g/dL (32-36); MEAN CORPUSCULAR VOLUME 87 fL (80-99); MEAN PLATELET VOLUME 9.7 fL (9.0-12.2); PLATELET COUNT 308 10^3/uL (130-400); WHITE BLOOD COUNT 13.7 10^3/uL (4.3-11.0)
[2022-01-29 18:38] LABS: POTASSIUM 3.9 MMOL/L (3.6-5.0)
[2022-01-29 18:44] LABS: CREATININE SERUM 1.1 MG/DL (0.60-1.30)
[2022-01-29] MEDS: 1/2 NS IV SOLUTION 1,000 ML IV SCH ×2 (19:27→23:26)
--- NOTE | 2022-01-29 19:32 | Tele-ICU Consult ---
History of Present Illness History of Present Illness Date Seen by Provider: January 29, 2022 Time Seen by Provider: 19:28 Date of Admission ED course:Patient to the ER by private conveyance with a adventism friend who provides Sri Lankan interpretation and chief complaint of past week of having increased urination and now the last 2 days not able to urinate very much. He has type 1 diabetes. His blood sugar has been elevated as high as 500. He has been taking his insulin routinely and has not been out of it. He takes Lantus 26 units this morning and 12 units of NovoLog this morning. Primary care provider is Rolly Urena. He is not having any nausea right now. No fevers chills recent travel dysuria diarrhea or constipation. He has had to stay in the ICU for DKA in the past and his last episode was about 6 months ago. ICU course;pt appears stable and nad; dka protocol on place Allergies and Home Medications Allergies Coded Allergies: No Known Drug Allergies (Unverified , 12/02/19) Home Medications Insulin Aspart 300 Units/3 Ml Solution, 7 UNITS SQ AC, (Reported) Insulin Glargine,Hum.rec.anlog 100 Unit/1 Ml Insuln.pen, 20 UNIT SQ BID, (Reported) Past Medical/Social/Family Hx Patient Social History Tobacco Use?: No Smoking Status: Never a Smoker Smokeless Tobacco Frequency: Never a User Use of E-Cig and/or Vaping dev: No Substance use?: No Alcohol Use?: No Pt stated abuse/neglect: No Immunizations Up To Date Influenza Vaccine Up-to-Date: Yes; Up-to-Date First/Initial COVID19 Vaccinat: 2020 Second COVID19 Vaccination Mayco: 2020 Current Status Advance Directives: No Communicates: Verbally Primary Language: Sri Lankan Preferred Spoken Language: [place]ankan Is interpretation needed?: No Past Medical History PMHx: DM SurgHx: Denies Review of Systems Constitutional: see HPI Focused Exam Height, Weight, BMI Height: '" Weight: lbs. oz. kg; 19.31 BMI Method: Exam Exam Patient acknowledged, consented, and participated in this virtual visit which was conducted using real time audio/video Vital Signs Date Time Temp Pulse Resp B/P (MAP) Pulse Ox O2 Delivery O2 Flow Rate FiO2 01/29/22 18:30 74 12 93/60 100 Room Air 01/29/22 18:00 77 14 92/57 99 01/29/22 17:51 76 01/29/22 17:48 100 Room Air 01/29/22 17:34 80 13 97/64 100 01/29/22 15:27 36.6 89 17 104/61 (75) 100 Height & Weight Height: '" Weight: lbs. oz. kg; 19.31 BMI Method: General Appearance: No Apparent Distress, Mild Distress, Thin HEENT: PERRL/EOMI, TMs Normal, Pharynx Normal, Moist Mucous Membranes Neck: Full Range of Motion, Normal Inspection Respiratory: Lungs Clear, Normal Breath Sounds, No Accessory Muscle Use, Respiratory Distress (Mild with respiratory rate of 25-27, deep inspiration) Cardiovascular: Regular Rate, Rhythm, No Edema, Normal Peripheral Pulses Extremity: Normal Capillary Refill, Normal Inspection Neurologic/Psychiatric: Alert, Oriented x3, No Motor/Sensory Deficits Skin: Normal Color, Warm/Dry Results Lab Laboratory Tests 01/29/22 15:47 01/29/22 18:05 Assessment/Plan Assessment/Plan 1. DKA -unclear cause -DKA protocol -repeat cmp/ abg 2. joe very probale related to dehydration iv fluids/ monitor cmp labs/ notes reviewd -check ua/ lactic acid pt was visualized FLORENCIA BARBOUR MD January 29, 2022 19:32
[2022-01-29 20:58] LABS: POTASSIUM 3.8 MMOL/L (3.6-5.0)
[2022-01-29 20:59] LABS: BILIRUBIN,TOTAL 0.5 MG/DL (0.1-1.0); CALCIUM 7.9 MG/DL (8.5-10.1); CREATININE SERUM 0.95 MG/DL (0.60-1.30); TOTAL PROTEIN 6.2 GM/DL (6.4-8.2)
[2022-01-29 21:00] LABS: ALBUMIN 3.2 GM/DL (3.2-4.5); HEMATOCRIT 37 % (40-54); HEMOGLOBIN 12.5 g/dL (13.3-17.7); MEAN CORPUSCULAR HEMOGLOBIN 29 pg (25-34); MEAN CORPUSCULAR HGB CONC 34 g/dL (32-36); MEAN CORPUSCULAR VOLUME 87 fL (80-99); MEAN PLATELET VOLUME 9.8 fL (9.0-12.2); PLATELET COUNT 302 10^3/uL (130-400)
[2022-01-29] MEDS: D5 1/2 NS 1000 ML IV SOLUTION 1,000 ML IV SCH (23:25)
[2022-01-30 00:17] LABS: POTASSIUM 3.8 MMOL/L (3.6-5.0)
[2022-01-30 00:18] LABS: CALCIUM 7.5 MG/DL (8.5-10.1)
[2022-01-30 00:22] LABS: CREATININE SERUM 0.78 MG/DL (0.60-1.30)
[2022-01-30] MEDS: POTASSIUM CL 10MEQ/50ML IVPB 50 ML IV SCH ×12 (00:32→18:39)
[2022-01-30] MEDS: 1/2 NS IV SOLUTION 1,000 ML IV SCH ×5 (02:18→18:42)
[2022-01-30] MEDS: D5 1/2 NS 1000 ML IV SOLUTION 1,000 ML IV SCH ×4 (03:24→17:28)
[2022-01-30] MEDS: KCL 20 MEQ TAB (K-DUR) PO SCH ×2 (05:43→18:42)
[2022-01-30 05:54] LABS: BASOPHILS # (AUTO) 0.1 10^3/uL (0.0-0.1); BASOPHILS % (AUTO) 1 % (0-10); EOSINOPHILS # (AUTO) 0.2 10^3/uL (0.0-0.3); EOSINOPHILS % (AUTO) 2 % (0-10); HEMATOCRIT 33 % (40-54); HEMOGLOBIN 11.4 g/dL (13.3-17.7); LYMPHOCYTES # (AUTO) 2.9 10^3/uL (1.0-4.0); LYMPHOCYTES % (AUTO) 33 % (12-44); MEAN CORPUSCULAR HEMOGLOBIN 29 pg (25-34); MEAN CORPUSCULAR HGB CONC 35 g/dL (32-36); MEAN CORPUSCULAR VOLUME 84 fL (80-99); MEAN PLATELET VOLUME 9.5 fL (9.0-12.2); MONOCYTES % (AUTO) 11 % (0-12); NEUTROPHILS # (AUTO) 4.7 10^3/uL (1.8-7.8); NEUTROPHILS % (AUTO) 52 % (42-75); PLATELET COUNT 246 10^3/uL (130-400)
[2022-01-30] MEDS ORDERED: MAGNESIUM 1 GM/100 ML IVPB 100 ML IV SCH (06:00)
[2022-01-30] MEDS ORDERED: POTASSIUM CL 10MEQ/50ML IVPB 50 ML IV SCH (06:00)
[2022-01-30 06:02] LABS: POTASSIUM 3.2 MMOL/L (3.6-5.0)
[2022-01-30 06:03] LABS: CALCIUM 7.6 MG/DL (8.5-10.1)
[2022-01-30 06:07] LABS: PHOSPHORUS 1.5 MG/DL (2.3-4.7)
[2022-01-30 06:08] LABS: CREATININE SERUM 0.62 MG/DL (0.60-1.30)
[2022-01-30 06:10] LABS: MAGNESIUM 1.6 MG/DL (1.6-2.4)
[2022-01-30 06:20] LABS: EOSINOPHILS % (MANUAL) 2 %; LYMPHOCYTES % (MANUAL) 36 %; MICROCYTOSIS SLIGHT; MONOCYTES % (MANUAL) 10 %; NEUTROPHILS % (MANUAL) 52 %; POLYCHROMASIA SLIGHT
[2022-01-30] MEDS: MAGNESIUM 1 GM/100 ML IVPB 100 ML IV SCH ×2 (06:24→07:48)
[2022-01-30] MEDS ORDERED: POT PHOS/NA PHOS (K-PHOS NEUTRAL) PO ONE (07:00)
[2022-01-30] MEDS ORDERED: POTASSIUM PHOSPHATE INJ 15 MM in NS (IVPB) 250 ML IV ONE (07:00)
--- NOTE | 2022-01-30 08:47 | History & Physical ---
HPI History of Present Illness: 51 yo male came to hospital due to high sugar. He reports blood sugar was 570 at home, was running high for about 2 weeks. He denies any signs of illness. Denies fever, nausea, vomiting, diarrhea, abdominal pain. He denies being out of medications. He usually takes mealtime insulin three times per day, 26 units and long acting insulin twice daily, 14 units. He reports being diagnosed with diabetes about 3-4 years ago. He states he has not been able to be clear whether he has type I or type II diabetes. He was on metformin for a couple of years, started insulin about a year ago. He reports his aunts and father had diabetes and they have . Source: patient Exam Limitations: language barrier (phone director speech used) Date seen by provider: January 30, 2022 Time Seen by Provider: 08:45 Attending Physician [place] PCP Admitting Physician: Effie Lema MD Attending Physician: Effie Lema MD Consult Date of Admission January 29, 2022 at 17:09 Home Medications Home Medications Reviewed patient Home Medication Reconciliation performed by pharmacy medication reconciliations rim technician and/or nursing. Patients Allergies have been reviewed. 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 Past Medical History PMHx: DM SurgHx: Denies Family Medical History Significant Family History: Diabetes Review of Systems ([facility]) Constitutional: No fever EENTM: throat pain (before blood sugar was getting higher, had sore throat); No nose congestion Respiratory: No cough, No short of breath Cardiovascular: No chest pain Gastrointestinal: see HPI Genitourinary: No dysuria Musculoskeletal: No joint pain, No muscle pain Skin: No rash Psychiatric/Neurological: Denies Headache Reviewed Test Results Reviewed Test Results Lab Laboratory Tests Test 01/29/22 15:47 01/29/22 15:48 01/29/22 16:48 01/29/22 17:25 Range/Units White Blood Count 14.3 H 4.3-11.0 10^3/uL Red Blood Count 4.92 4.30-5.52 10^6/uL Hemoglobin 14.6 13.3-17.7 g/dL Hematocrit 43 40-54 % Mean Corpuscular Volume 86 80-99 fL Mean Corpuscular Hemoglobin 30 25-34 pg Mean Corpuscular Hemoglobin Concent 34 32-36 g/dL Red Cell Distribution Width 13.2 10.0-14.5 % Platelet Count 386 130-400 10^3/uL Mean Platelet Volume 10.0 9.0-12.2 fL Immature Granulocyte % (Auto) 4 % Neutrophils (%) (Auto) 75 42-75 % Lymphocytes (%) (Auto) 12 12-44 % Monocytes (%) (Auto) 8 0-12 % Eosinophils (%) (Auto) 0 0-10 % Basophils (%) (Auto) 1 0-10 % Neutrophils # (Auto) 10.6 H 1.8-7.8 10^3/uL Lymphocytes # (Auto) 1.8 1.0-4.0 10^3/uL Monocytes # (Auto) 1.2 H 0.0-1.0 10^3/uL Eosinophils # (Auto) 0.0 0.0-0.3 10^3/uL Basophils # (Auto) 0.1 0.0-0.1 10^3/uL Immature Granulocyte # (Auto) 0.6 H 0.0-0.1 10^3/uL Neutrophils % (Manual) 72 % Lymphocytes % (Manual) 14 % Monocytes % (Manual) 14 % Nucleated Red Blood Cells 1 Polychromasia MODERATE Sodium Level 125 *L 135-145 MMOL/L Potassium Level 4.3 3.6-5.0 MMOL/L Chloride Level 93 L 98-107 MMOL/L Carbon Dioxide Level 7 *L 21-32 MMOL/L Anion Gap 25 H 5-14 MMOL/L Blood Urea Nitrogen 19 H 7-18 MG/DL Creatinine 1.40 H 0.60-1.30 MG/DL Estimat Glomerular Filtration Rate 61 BUN/Creatinine Ratio 14 Glucose Level 629 *H 70-105 MG/DL Calcium Level 9.0 8.5-10.1 MG/DL Corrected Calcium 9.0 8.5-10.1 MG/DL Magnesium Level 2.5 H 1.6-2.4 MG/DL Total Bilirubin 0.8 0.1-1.0 MG/DL Aspartate Amino Transf (AST/SGOT) 15 5-34 U/L Alanine Aminotransferase (ALT/SGPT) 33 0-55 U/L Alkaline Phosphatase 240 H 40-136 U/L C-Reactive Protein High Sensitivity 6.86 H 0.00-0.50 MG/DL Total Protein 8.1 6.4-8.2 GM/DL Albumin 4.0 3.2-4.5 GM/DL Beta-Hydroxybutyrate (Chem panel) 7.87 H 0.00-0.27 MMOL/L Glucometer 578 *H 400 *H 70-110 MG/DL Urine Color YELLOW Urine Clarity CLEAR Urine pH 5.5 5-9 Urine Specific [place] 1.025 H 1.016-1.022 Urine Protein NEGATIVE NEGATIVE Urine Glucose (UA) 3+ H NEGATIVE Urine Ketones 3+ H NEGATIVE Urine Nitrite NEGATIVE NEGATIVE Urine Bilirubin NEGATIVE NEGATIVE Urine Urobilinogen 0.2 < = 1.0 MG/DL Urine Leukocyte Esterase NEGATIVE NEGATIVE Urine RBC (Auto) TRACE-I H NEGATIVE Urine RBC NONE /HPF Urine WBC 0-2 /HPF Urine Squamous Epithelial Cells NONE /HPF Urine Renal Epithelial Cells NONE /HPF Urine Crystals NONE /LPF Urine Bacteria NEGATIVE /HPF Urine Casts NONE /LPF Urine Mucus NEGATIVE /LPF Urine Culture Indicated NO Test 01/29/22 17:54 01/29/22 18:05 01/29/22 19:25 01/29/22 19:40 Range/Units Glucometer 403 *H 328 H 70-110 MG/DL White Blood Count 13.7 H 13.0 H 4.3-11.0 10^3/uL Red Blood Count 4.37 4.30 4.30-5.52 10^6/uL Hemoglobin 12.7 L 12.5 L 13.3-17.7 g/dL Hematocrit 38 L 37 L 40-54 % Mean Corpuscular Volume 87 87 80-99 fL Mean Corpuscular Hemoglobin 29 29 25-34 pg Mean Corpuscular Hemoglobin Concent 33 34 32-36 g/dL Red Cell Distribution Width 13.2 13.1 10.0-14.5 % Platelet Count 308 302 130-400 10^3/uL Mean Platelet Volume 9.7 9.8 9.0-12.2 fL Sodium Level 130 L 130 L 135-145 MMOL/L Potassium Level 3.9 3.8 3.6-5.0 MMOL/L Chloride Level 101 104 98-107 MMOL/L Carbon Dioxide Level 7 *L 8 *L 21-32 MMOL/L Anion Gap 22 H 18 H 5-14 MMOL/L Blood Urea Nitrogen 15 14 7-18 MG/DL Creatinine 1.10 0.95 0.60-1.30 MG/DL Estimat Glomerular Filtration Rate 81 97 BUN/Creatinine Ratio 14 15 Glucose Level 417 *H 371 H 70-105 MG/DL Calcium Level 8.0 L 7.9 L 8.5-10.1 MG/DL Beta-Hydroxybutyrate (Chem panel) 6.45 H 4.47 H 0.00-0.27 MMOL/L Corrected Calcium 8.5 8.5-10.1 MG/DL Total Bilirubin 0.5 0.1-1.0 MG/DL Aspartate Amino Transf (AST/SGOT) 12 5-34 U/L Alanine Aminotransferase (ALT/SGPT) 25 0-55 U/L Alkaline Phosphatase 181 H 40-136 U/L Total Protein 6.2 L 6.4-8.2 GM/DL Albumin 3.2 3.2-4.5 GM/DL Test 01/29/22 20:00 01/29/22 20:42 01/29/22 21:29 01/29/22 22:21 Range/Units Lactic Acid Level 1.16 0.50-2.00 MMOL/L Glucometer 278 H 315 H 260 H 70-110 MG/DL Test 01/29/22 23:16 01/30/22 00:00 01/30/22 01:09 01/30/22 02:07 Range/Units Glucometer 236 H 255 H 204 H 70-110 MG/DL Sodium Level 128 L 135-145 MMOL/L Potassium Level 3.8 3.6-5.0 MMOL/L Chloride Level 105 98-107 MMOL/L Carbon Dioxide Level 12 L 21-32 MMOL/L Anion Gap 11 5-14 MMOL/L Blood Urea Nitrogen 13 7-18 MG/DL Creatinine 0.78 0.60-1.30 MG/DL Estimat Glomerular Filtration Rate 108 BUN/Creatinine Ratio 17 Glucose Level 263 H 70-105 MG/DL Calcium Level 7.5 L 8.5-10.1 MG/DL Test 01/30/22 03:23 01/30/22 04:28 01/30/22 05:40 01/30/22 06:14 Range/Units Glucometer 153 H 143 H 140 H 70-110 MG/DL White Blood Count 9.0 4.3-11.0 10^3/uL Red Blood Count 3.90 L 4.30-5.52 10^6/uL Hemoglobin 11.4 L 13.3-17.7 g/dL Hematocrit 33 L 40-54 % Mean Corpuscular Volume 84 80-99 fL Mean Corpuscular Hemoglobin 29 25-34 pg Mean Corpuscular Hemoglobin Concent 35 32-36 g/dL Red Cell Distribution Width 13.2 10.0-14.5 % Platelet Count 246 130-400 10^3/uL Mean Platelet Volume 9.5 9.0-12.2 fL Immature Granulocyte % (Auto) 2 % Neutrophils (%) (Auto) 52 42-75 % Lymphocytes (%) (Auto) 33 12-44 % Monocytes (%) (Auto) 11 0-12 % Eosinophils (%) (Auto) 2 0-10 % Basophils (%) (Auto) 1 0-10 % Neutrophils # (Auto) 4.7 1.8-7.8 10^3/uL Lymphocytes # (Auto) 2.9 1.0-4.0 10^3/uL Monocytes # (Auto) 1.0 0.0-1.0 10^3/uL Eosinophils # (Auto) 0.2 0.0-0.3 10^3/uL Basophils # (Auto) 0.1 0.0-0.1 10^3/uL Immature Granulocyte # (Auto) 0.2 H 0.0-0.1 10^3/uL Neutrophils % (Manual) 52 % Lymphocytes % (Manual) 36 % Monocytes % (Manual) 10 % Eosinophils % (Manual) 2 % Polychromasia SLIGHT Microcytosis SLIGHT Sodium Level 132 L 135-145 MMOL/L Potassium Level 3.2 L 3.6-5.0 MMOL/L Chloride Level 108 H 98-107 MMOL/L Carbon Dioxide Level 15 L 21-32 MMOL/L Anion Gap 9 5-14 MMOL/L Blood Urea Nitrogen 10 7-18 MG/DL Creatinine 0.62 0.60-1.30 MG/DL Estimat Glomerular Filtration Rate 116 BUN/Creatinine Ratio 16 Glucose Level 143 H 70-105 MG/DL Calcium Level 7.6 L 8.5-10.1 MG/DL Phosphorus Level 1.5 L 2.3-4.7 MG/DL Magnesium Level 1.6 1.6-2.4 MG/DL Test 01/30/22 07:16 01/30/22 08:02 01/30/22 09:09 Range/Units Glucometer 141 H 163 H 139 H 70-110 MG/DL Radiology CXR 01/29/22: IMPRESSION: No acute abnormalities in the chest Physical Exam-([facility]) Physical Exam Vital Signs VS - Last 72 Hours, by Label 01/29/22 01/29/22 01/29/22 01/29/22 15:27 17:34 17:48 17:51 Temp 36.6 Pulse 89 80 76 Resp 17 13 B/P (MAP) 104/61 (75) 97/64 Pulse Ox 100 100 100 O2 Delivery Room Air 01/29/22 01/29/22 01/29/22 01/29/22 18:00 18:30 19:00 19:00 Pulse 77 74 81 75 Resp 14 12 10 B/P (MAP) 92/57 93/60 94/55 Pulse Ox 99 100 100 O2 Delivery Room Air Room Air 01/29/22 01/29/22 01/29/22 01/29/22 19:27 20:00 20:00 21:00 Temp 36.2 Pulse 75 82 Resp 11 11 B/P (MAP) 92/55 95/53 Pulse Ox 100 100 99 O2 Delivery Room Air Room Air Room Air 01/29/22 01/29/22 01/29/22 01/29/22 21:39 22:00 23:00 23:10 Temp 36.5 Pulse 78 78 Resp 9 16 B/P (MAP) 90/52 90/48 Pulse Ox 100 99 100 O2 Delivery Room Air Room Air Room Air 01/29/22 01/30/22 01/30/22 01/30/22 23:33 00:00 01:00 01:05 Temp 36.6 Pulse 74 74 75 Resp 11 9 B/P (MAP) 92/44 97/50 Pulse Ox 98 100 O2 Delivery Room Air Room Air 01/30/22 01/30/22 01/30/22 01/30/22 02:06 03:00 03:43 04:00 Temp 36.7 Pulse 71 64 65 Resp 10 8 10 B/P (MAP) 91/53 97/55 99/55 Pulse Ox 100 99 99 O2 Delivery Room Air Room Air Room Air 01/30/22 01/30/22 01/30/22 01/30/22 04:00 05:30 06:00 07:00 Pulse 66 64 64 Resp 9 8 8 B/P (MAP) 98/53 97/52 103/56 Pulse Ox 100 100 100 100 O2 Delivery Room Air Room Air Room Air Room Air 01/30/22 01/30/22 01/30/22 01/30/22 07:44 07:59 08:00 09:00 Temp 36.7 Pulse 69 86 70 Resp 7 8 B/P (MAP) 95/59 99/50 Pulse Ox 100 100 O2 Delivery Room Air Room Air Capillary Refill : General Appearance: WD/WN, no apparent distress Respiratory: lungs clear, normal breath sounds Cardiovascular: regular rate, rhythm, no murmur Gastrointestinal: normal bowel sounds, non tender, soft Extremities: no pedal edema Neurologic/Psychiatric: alert, normal mood/affect Skin: normal color, warm/dry Assessment/Plan Assessment/Plan Admission Status: Inpatient Order (span 2 midnights) Reason for Inpatient Admission: DKA requiring continuous insulin drip (1) DKA (diabetic ketoacidosis) Status: Acute Assessment & Plan: Insulin drip, DKA protocol. Improving with closed AG this am, increasing CO2. Qualifiers: Qualified Codes: E13.10 - Other specified diabetes mellitus with ketoacidosis without coma (2) Hyponatremia Status: Acute Assessment & Plan: Secondary to hyperglycemia, improving. (3) Hypophosphatemia Status: Acute Assessment & Plan: Replace and follow. (4) Hypokalemia Status: Acute Assessment & Plan: Replace and monitor (5) Ketosis-prone diabetes mellitus Status: Chronic Assessment & Plan: Uncertain type of DM, will review previous records. (6) DVT prophylaxis Status: Acute Assessment & Plan: Enoxaparin EFFIE LEMA MD January 30, 2022 08:47
[2022-01-30] MEDS: ENOXAPARIN 40 MG/0.4 ML (LOVENOX) SYR SQ SCH (10:26)
--- NOTE | 2022-01-30 10:42 | Tele-ICU Progress Note ---
Subjective Date Seen by a Provider: January 30, 2022 Time Seen by a Provider: 10:42 Subjective/Events-last exam (Tele-ICU Physician , Progress Note ) Available chart/ vitals / labs / Images reviewed Video assessment done using teleICU camera, rest of exam as per RN Discussed with RN , EXAM PER RN Events overnight : Afebrile FiO2 - ra I/O = + Drips: Pressors: , hemodynamically stable A/P DKA -Unclear precipitant, No suspicious for new infection, reports compliance with meds *Insulin drip continue to monitor for resolution of acidosis, AG and electrolytes. Continue hydration. *Tx Gastroparesis BAYRON , mild - cont IVF - improved Plans in collaboration with bedside consultants and IM MDs. Discussed with RN to reach out if any questions or concerns A total of 15 minutes of critical care time was devoted to this patient today, required to treat and/or prevent further deterioration of critical care condition ( as above) . Sepsis Event Evaluation Height, Weight, BMI Height: '" Weight: lbs. oz. kg; 19.63 BMI Method: Focused Exam Lactate Level 01/29/22 20:00: Lactic Acid Level 1.16 Exam Exam Patient acknowledged, consented, and participated in this virtual visit which was conducted using real time audio/video Vital Signs Date Time Temp Pulse Resp B/P (MAP) Pulse Ox O2 Delivery O2 Flow Rate FiO2 01/30/22 09:00 70 8 99/50 100 Room Air 01/30/22 08:00 86 7 95/59 100 Room Air 01/30/22 07:59 36.7 01/30/22 07:44 69 01/30/22 07:00 64 8 103/56 100 Room Air 01/30/22 06:00 64 8 97/52 100 Room Air 01/30/22 05:30 66 9 98/53 100 Room Air 01/30/22 04:00 100 Room Air 01/30/22 04:00 65 10 99/55 99 Room Air 01/30/22 03:43 36.7 01/30/22 03:00 64 8 97/55 99 Room Air 01/30/22 02:06 71 10 91/53 100 Room Air 01/30/22 01:05 75 9 97/50 100 Room Air 01/30/22 01:00 74 01/30/22 00:00 74 11 92/44 98 Room Air 01/29/22 23:33 36.6 01/29/22 23:10 100 Room Air 01/29/22 23:00 78 16 90/48 99 Room Air 01/29/22 22:00 78 9 90/52 100 Room Air 01/29/22 21:39 36.5 01/29/22 21:00 82 11 95/53 99 Room Air 01/29/22 20:00 75 11 92/55 100 Room Air 01/29/22 20:00 100 Room Air 01/29/22 19:27 36.2 01/29/22 19:00 75 01/29/22 19:00 81 10 94/55 100 Room Air 01/29/22 18:30 74 12 93/60 100 Room Air 01/29/22 18:00 77 14 92/57 99 01/29/22 17:51 76 01/29/22 17:48 100 Room Air 01/29/22 17:34 80 13 97/64 100 01/29/22 15:27 36.6 89 17 104/61 (75) 100 I & O 01/30/22 07:00 Intake Total 6800 ml Output Total 2700 ml Balance 4100 ml Height & Weight Height: '" Weight: lbs. oz. kg; 19.63 BMI Method: General Appearance: No Apparent Distress, Mild Distress, Thin HEENT: PERRL/EOMI, TMs Normal, Pharynx Normal, Moist Mucous Membranes Neck: Full Range of Motion, Normal Inspection Respiratory: Lungs Clear, Normal Breath Sounds, No Accessory Muscle Use, Respiratory Distress (Mild with respiratory rate of 25-27, deep inspiration) Cardiovascular: Regular Rate, Rhythm, No Edema, Normal Peripheral Pulses Gastrointestinal: normal bowel sounds, non tender, soft Extremity: Normal Capillary Refill, Normal Inspection Neurologic/Psychiatric: Alert, Oriented x3, No Motor/Sensory Deficits Skin: Normal Color, Warm/Dry Results Lab Laboratory Tests 01/29/22 15:47 01/29/22 18:05 01/29/22 19:40 01/30/22 00:00 01/30/22 05:40 Assessment/Plan Assessment/Plan ` BRIGETTE LOVE MD January 30, 2022 10:42
[2022-01-30] MEDS ORDERED: ASPI-999 PO (11:01)
[2022-01-30] MEDS ORDERED: ATOR10TA66 PO (11:01)
[2022-01-30 11:15] LABS: POTASSIUM 3.8 MMOL/L (3.6-5.0)
[2022-01-30 11:16] LABS: CALCIUM 7.4 MG/DL (8.5-10.1)
[2022-01-30 11:21] LABS: CREATININE SERUM 0.55 MG/DL (0.60-1.30)
[2022-01-30 17:06] LABS: POTASSIUM 3.2 MMOL/L (3.6-5.0)
[2022-01-30 17:07] LABS: CALCIUM 7.8 MG/DL (8.5-10.1)
[2022-01-30 17:12] LABS: CREATININE SERUM 0.55 MG/DL (0.60-1.30)
[2022-01-30] MEDS: inSUlin ASPART (NovoLOG) 1 UNIT/0.01 ML (CHARGE PER UNIT) SC SCH (18:40)
[2022-01-30] MEDS ORDERED: KCL 20 MEQ TAB (K-DUR) PO ONE (21:30)
[2022-01-31 06:15] LABS: BASOPHILS # (AUTO) 0.1 10^3/uL (0.0-0.1); BASOPHILS % (AUTO) 1 % (0-10); EOSINOPHILS # (AUTO) 0.1 10^3/uL (0.0-0.3); EOSINOPHILS % (AUTO) 2 % (0-10); HEMATOCRIT 36 % (40-54); HEMOGLOBIN 12.4 g/dL (13.3-17.7); LYMPHOCYTES % (AUTO) 46 % (12-44); MEAN CORPUSCULAR HEMOGLOBIN 29 pg (25-34); MEAN CORPUSCULAR HGB CONC 35 g/dL (32-36); MEAN CORPUSCULAR VOLUME 83 fL (80-99); MEAN PLATELET VOLUME 9.6 fL (9.0-12.2); MONOCYTES # (AUTO) 0.7 10^3/uL (0.0-1.0); MONOCYTES % (AUTO) 10 % (0-12); NEUTROPHILS # (AUTO) 2.6 10^3/uL (1.8-7.8); NEUTROPHILS % (AUTO) 40 % (42-75); PLATELET COUNT 256 10^3/uL (130-400); WHITE BLOOD COUNT 6.5 10^3/uL (4.3-11.0)
[2022-01-31 06:32] LABS: POTASSIUM 3.5 MMOL/L (3.6-5.0)
[2022-01-31 06:37] LABS: ATYPICAL LYMPHOCYTES 3 %; BASOPHILS % (MANUAL) 1 %; CREATININE SERUM 0.54 MG/DL (0.60-1.30); EOSINOPHILS % (MANUAL) 1 %; LYMPHOCYTES % (MANUAL) 53 %; MICROCYTOSIS SLIGHT; MONOCYTES % (MANUAL) 4 %; NEUTROPHILS % (MANUAL) 38 %; PHOSPHORUS 2.6 MG/DL (2.3-4.7); POLYCHROMASIA SLIGHT
[2022-01-31 06:40] LABS: MAGNESIUM 1.7 MG/DL (1.6-2.4)
[2022-01-31] MEDS ORDERED: INSU100I14 SQ ×2 (07:45→09:23)
[2022-01-31] MEDS ORDERED: INSU100I34 SQ ×2 (07:45→09:23)
[2022-01-31] MEDS ORDERED: KCL 20 MEQ TAB (K-DUR) PO NR (08:04)
[2022-01-31] MEDS: inSUlin ASPART (NovoLOG) 1 UNIT/0.01 ML (CHARGE PER UNIT) SC SCH (08:43)
--- NOTE | 2022-01-31 09:24 | Discharge Summary ---
Discharge Summary Hospital Course Problems/Diagnosis: (1) DKA (diabetic ketoacidosis) Status: Resolved Resolution Date/Time: 01/30/22 @ 11:15 Assessment & Plan: Insulin drip, DKA protocol, resolved after about 24 hours, transitioned to basal bolus insulin and labs remained normal. Increased home insulin dose to 30 units BID of long-acting and 15 units TID with meals, he uses CGM so should be able to closely identify if any low occurs. Qualifiers: Qualified Codes: E13.10 - Other specified diabetes mellitus with ketoacidosis without coma (2) Hyponatremia Status: Resolved Resolution Date/Time: 01/31/22 @ 11:16 Assessment & Plan: Secondary to hyperglycemia (3) Hypophosphatemia Status: Resolved Resolution Date/Time: 01/31/22 @ 11:16 Assessment & Plan: Replaced (4) Hypokalemia Status: Resolved Resolution Date/Time: 01/31/22 @ 11:17 Assessment & Plan: Replaced (5) Ketosis-prone diabetes mellitus Status: Chronic Hospital Course Date of Admission: January 29, 2022 at 17:09 Admission Diagnosis : Family Physician/Provider: Rolly Urena Date of Discharge: 01/31/22 Discharge Diagnosis: See problem list Hospital Course: See problem list Labs and Pending Lab Test: Laboratory Tests 01/30/22 09:59: Glucometer 183H 01/30/22 10:35: Sodium Level 128L, Potassium Level 3.8, Chloride Level 103, Carbon Dioxide Level 16L, Anion Gap 9, Blood Urea Nitrogen 9, Creatinine 0.55L, Estimat Glomerular Filtration Rate 120, BUN/Creatinine Ratio 16, Glucose Level 243H, Calcium Level 7.4L 01/30/22 11:02: Glucometer 244H 01/30/22 12:08: Glucometer 279H 01/30/22 13:13: Glucometer 254H 01/30/22 14:13: Glucometer 261H 01/30/22 15:11: Glucometer 198H 01/30/22 15:57: Glucometer 219H 01/30/22 16:45: Sodium Level 134L, Potassium Level 3.2L, Chloride Level 106, Carbon Dioxide Level 19L, Anion Gap 9, Blood Urea Nitrogen 8, Creatinine 0.55L, Estimat Glomerular Filtration Rate 120, BUN/Creatinine Ratio 15, Glucose Level 211H, Calcium Level 7.8L, Beta-Hydroxybutyrate (Chem panel) 0.09 01/30/22 16:52: Glucometer 216H 01/30/22 18:09: Glucometer 164H 01/30/22 20:07: Glucometer 198H 01/31/22 06:08: White Blood Count 6.5, Red Blood Count 4.30, Hemoglobin 12.4L, Hematocrit 36L, Mean Corpuscular Volume 83, Mean Corpuscular Hemoglobin 29, Mean Corpuscular Hemoglobin Concent 35, Red Cell Distribution Width 13.2, Platelet Count 256, Mean Platelet Volume 9.6, Immature Granulocyte % (Auto) 2, Neutrophils (%) (Auto) 40L, Lymphocytes (%) (Auto) 46H, Monocytes (%) (Auto) 10, Eosinophils (%) (Auto) 2, Basophils (%) (Auto) 1, Neutrophils # (Auto) 2.6, Lymphocytes # (Auto) 3.0, Monocytes # (Auto) 0.7, Eosinophils # (Auto) 0.1, Basophils # (Auto) 0.1, Immature Granulocyte # (Auto) 0.1, Neutrophils % (Manual) 38, Lymphocytes % (Manual) 53, Monocytes % (Manual) 4, Eosinophils % (Manual) 1, Basophils % (Manual) 1, Atypical Lymphocytes 3, Polychromasia SLIGHT, Microcytosis SLIGHT, Sodium Level 136, Potassium Level 3.5L, Chloride Level 106, Carbon Dioxide Level 20L, Anion Gap 10, Blood Urea Nitrogen 8, Creatinine 0.54L, Estimat Glomerular Filtration Rate 121, BUN/Creatinine Ratio 15, Glucose Level 108H, Calcium Level 8.0L, Phosphorus Level 2.6, Magnesium Level 1.7 01/31/22 08:41: Glucometer 179H Microbiology 01/30/22 MRSA Screen - Final, Complete MRSA not isolated Home Meds Active Basaglar Kwikpen U-100 (Insulin Glargine,Hum.rec.anlog) 100 Unit/Ml (3 Ml) Insuln.pen 30 Unit SQ BID Novolog Flexpen (Insulin Aspart) 100 Unit/Ml (3 Ml) Solution 15 Units SQ AC Novolog Flexpen (Insulin Aspart) 300 Units/3 Ml Solution 12 Units SQ AC Basaglar Kwikpen U-100 (Insulin Glargine,Hum.rec.anlog) 100 Unit/1 Ml Insuln.pen 20 Unit SQ BID Reported Aspirin 81 Mg Tab.chew 81 Mg PO DAILY Atorvastatin Calcium 10 Mg Tablet 10 Mg PO DAILY Assessment/Pt DC Instructions Follow up with primary doctor within a week of discharge. Discharge Diet: ADA Diet Activity as Tolerated: Yes Discharge Physical Examination Allergies: Coded Allergies: No Known Drug Allergies (Unverified , 12/02/19) General Appearance: No Apparent Distress, WD/WN Respiratory: Lungs Clear, Normal Breath Sounds Cardiovascular: Regular Rate, Rhythm, No Edema, No Murmur Gastrointestinal: Normal Bowel Sounds, Non Tender, Soft Skin: Normal Color, Warm/Dry Neurologic/Psychiatric: Alert, Normal Mood/Affect EFFIE JIMENEZ MD January 31, 2022 09:24
--- NOTE | 2022-01-31 09:25 | Discharge Summary ---
Discharge [facility] Discharge Medications New, Converted or Re-Newed RX: Transmitted to Pharmacy New Medications: Insulin Aspart (Novolog Flexpen) 100 Unit/Ml (3 Ml) Solution 15 UNITS SQ AC, #4 EA 0 Refills Insulin Glargine,Hum.rec.anlog (Basaglar Kwikpen U-100) 100 Unit/Ml (3 Ml) Insuln.pen 30 UNIT SQ BID, #4 EA 0 Refills Continued Medications: Aspirin (Aspirin) 81 Mg Tab.chew 81 MG PO DAILY Atorvastatin Calcium (Atorvastatin Calcium) 10 Mg Tablet 10 MG PO DAILY Discontinued Medications: Insulin Aspart (Novolog Flexpen) 300 Units/3 Ml Solution 12 UNITS SQ AC, #4 EA 0 Refills Insulin Glargine,Hum.rec.anlog (Basaglar Kwikpen U-100) 100 Unit/1 Ml Insuln.pen 20 UNIT SQ BID, #4 EA 0 Refills Patient Instructions Goal/Follow Up Appt: Follow up with Rolly Urena within a week of discharge. Patient Instructions: Monitor your blood sugar closely for low or high and [facility] if they are running below 100 or above 200. Return to The Hospital For: Fever, low or high blood sugar, inability to keep down food. Activity & Diet Discharge Diet: ADA Diet Activity as Tolerated: Yes EFFIE JIMENEZ MD January 31, 2022 09:25
[2022-01-31] MEDS: ENOXAPARIN 40 MG/0.4 ML (LOVENOX) SYR SQ SCH (11:14)
[2022-01-31 15:03] VITALS: BP 104/70
== END 2022-01-31 15:05 | disposition home or self-care (01) | DRG 638 ==
LOC: EDUNIT# 15:21 → ER 15:23 → ICU 17:09 → 4TH 01-30 22:45
PROVIDERS: ADMIT Family Medicine; ATTEND Family Medicine
DX: E10.10 Type 1 diabetes mellitus with ketoacidosis without coma (principal); N17.9 Acute kidney failure, unspecified; E87.1 Hypo-osmolality and hyponatremia; Z79.4 Long term (current) use of insulin; E86.0 Dehydration; I10 Essential (primary) hypertension; E87.6 Hypokalemia; E83.39 Other disorders of phosphorus metabolism; Z83.3 Family history of diabetes mellitus
CPT/HCPCS: 36415; 71045; 80048; 80053; 81000; 82010; 82947; 83036; 83605; 83735; 84100; 85007; 85027; 86141; 87081